=== PATIENT | female | born 1945 | race Caucasian/White ===

== ENCOUNTER → 2016-08-07 | Outpatient (CLI) | payer MEDICARE ==
[~2016-08-07] MED LIST: ATEN100T PO; CARD60TA3 PO; FURO40TA2 PO; K-TA10TA2 PO; LEVO175T2 PO; LEVO750T13 PO; LISI25TA PO; LOSA25TA8 PO; SPIR25TA2 PO; VITA100067 PO; WARF-20 PO; WARF-58 PO
--- NOTE | 2016-08-07 12:34 | REP ---
Clinical: Bronchitis . Comparison: 06/27/2016. Technique: PA and lateral. Findings: The mediastinum and cardiac silhouette are normal. The lung bailey are clear and without acute consolidation, effusion, or pneumothorax. The skeletal structures are intact and normal. Impression: 1. No acute cardiopulmonary process. Signed by Mikey Ruffin MD 08/07/2016 12:25 P
== END ==
LOC: M LRY 11:47
PROVIDERS: ATTEND Physician Assistant
DX: J40 Bronchitis, not specified as acute or chronic (principal)
CPT/HCPCS: 71020; 87880; G0463

== ENCOUNTER → 2016-08-07 | Outpatient (REF) | payer MEDICARE | LOC: M SFHCLERA 11:34 | PROVIDERS: ATTEND Physician Assistant | DX: J02.9 Acute pharyngitis, unspecified (principal) ==

== ENCOUNTER 2016-10-27 20:51 | Emergency (ER) | payer MEDICARE ==
[~2016-10-27] VITALS: Ht 175.3 cm; Wt 109.1 kg
[~2016-10-27 20:51] MED LIST changes: -LOSA25TA8 PO
[2016-10-27] MEDS ORDERED: LOSA25TA8 PO (21:08)
[2016-10-27 22:43] VITALS: BP 137/69
--- NOTE | 2016-10-28 07:50 | REP ---
PA and lateral chest: Comparison is 2016. There are no focal infiltrates or effusions. No masses. Lung bailey are clear and unchanged. Cardiac size is mildly enlarged, unchanged. The sandra, mediastinum, bony thorax are. Impression: Mild cardiomegaly. Otherwise, negative PA and lateral chest. Surgical clips are incidentally noted in the abdominal right upper quadrant. Signed by Emory Justin MD 10/28/2016 07:41 A
== END 2016-10-27 22:44 | disposition home or self-care (01) ==
LOC: M ED 20:51
DX: T18.128A Food in esophagus causing other injury, initial encounter (principal); X58.XXXA Exposure to other specified factors, initial encounter; Y92.89 Other specified places as the place of occurrence of the external cause; I11.0 Hypertensive heart disease with heart failure; I50.9 Heart failure, unspecified; E03.9 Hypothyroidism, unspecified; I48.91 Unspecified atrial fibrillation; Z79.01 Long term (current) use of anticoagulants; Z79.899 Other long term (current) drug therapy; Z88.0 Allergy status to penicillin; Z91.013 Allergy to seafood

== ENCOUNTER → 2016-12-16 | Outpatient (CLI) | payer MEDICARE ==
[~2016-12-16] MED LIST changes: +LOSA25TA8 PO
--- NOTE | 2016-12-19 19:36 | SLEEPCENT ---
DATE OF PROCEDURE: 12/16/2016 ORDERED BY: Dr. Carranza Nocturnal polysomnography was performed to evaluate sleep physiology in this patient with complaints of excessive somnolence and nonrestorative sleep, who has comorbidities of atrial fibrillation, congestive heart failure and hypertension. 8 hours and 25 minutes of data were reviewed. There 324 minutes of sleep identified. Sleep latency was prolonged at 22 minutes. Rapid eye movement (REM) latency was prolonged at 140 minutes. Sleep architecture showed fragmentation. Sleep progression was fairly well maintained. There were three REM cycles. Overall sleep efficiency was 65.1%. Electrocardiogram showed atrial fibrillation with a controlled ventricular response rate of 64 beats per minute. Heart rate ranged 50-80 beats per minute. EEG showed mild coarsening of background, otherwise normal waveforms for awake and sleep. There were no focal events identified. There were 104 respiratory events identified of 10 seconds in duration or greater for an apnea-hypopnea index of 19.2. The events were primarily obstructive, not exclusive to sleep stage nor body posture. Arousals from respiratory events occurred 5.5 times per hour and oxygen desaturations were seen into the low 80s. Remaining measures of sleep physiology were normal. IMPRESSION: Obstructive sleep apnea syndrome (G47.33). Apnea-hypopnea index 19.2. RECOMMENDATION: The patient should be encouraged to return to the sleep disorder center for pressure therapy. In the interim, alcohol and sedative avoidance should be practiced and caution exercised during the operation of motor vehicles. Copy To: Tarun Chavis
== END ==
LOC: M SLEEP 19:23
PROVIDERS: ATTEND Internal Medicine Pulmonary Disease
DX: G47.33 Obstructive sleep apnea (adult) (pediatric) (principal)

== ENCOUNTER → 2017-02-03 | Outpatient (CLI) | payer MEDICARE | LOC: M SLEEP 19:34 | DX: G47.33 Obstructive sleep apnea (adult) (pediatric) (principal) | CPT/HCPCS: 95811 ==

== ENCOUNTER 2018-01-20 19:14 | Inpatient (IN) | payer OTHER, MEDICARE ==
[2018-01-20] MEDS: ONDANSETRON 4MG/2ML VIAL (J2405) IV (19:57)
[2018-01-20 19:58] LABS: BASO # 0.1 10^3/uL (0.0-0.2); BASO % 0.3 % (0.0-1.0); EOS # 0.1 10^3/uL (0.0-0.50); EOS % 0.6 % (0.0-3.0); HEMATOCRIT 40.5 % (36.0-47.0); HEMOGLOBIN 13.4 g/dl (12.0-15.5); IMMATURE GRANULOCYTE % 1.4 % (0-3.0); LYMPH % 21.7 % (24.0-44.0); MEAN CORPUSCULAR HEMOGLOBIN 30.1 pg (27.0-33.0); MEAN CORPUSCULAR HGB CONC 33.1 g/dl (32.0-36.5); MONO # 0.9 10^3/uL (0.0-0.8); MONO % 4.8 % (0.0-5.0); NEUTROPHILS # 13.2 10^3/uL (1.8-7.7); NEUTROPHILS % 71.2 % (36.0-66.0); PLATELET COUNT, AUTOMATED 253 10^3/uL (150-450); RED BLOOD COUNT 4.45 10^6/uL (4.00-5.40); RED CELL DISTRIBUTION WIDTH 14.1 % (11.5-14.5); WHITE BLOOD COUNT 18.5 10^3/uL (4.0-10.0)
[2018-01-20] MEDS: MORPHINE 4 MG/ML 1ML VIAL/SYRINGE (J2270) IV ×2 (19:58→21:00)
[2018-01-20 20:02] LABS: INR 2.21; PARTIAL THROMBOPLASTIN TIME 37.4 SECONDS (25.4-37.6)
[2018-01-20 20:02] LABS: BEDSIDE GLUCOSE 139 MG/DL (83-110)
[2018-01-20 20:18] LABS: ALBUMIN 4.1 GM/DL (3.2-5.2); ALBUMIN/GLOBULIN RATIO 1.08 (1.00-1.93); ALKALINE PHOSPHATASE 109 U/L (45-117); ALT/SGPT 25 U/L (12-78); AMYLASE 43 U/L (25-115); ANION GAP 9 MEQ/L (8-16); AST/SGOT 21 U/L (7-37); BILIRUBIN,DIRECT 0.2 MG/DL (0.0-0.2); BILIRUBIN,TOTAL 0.4 MG/DL (0.2-1.0); BLOOD UREA NITROGEN 17 MG/DL (7-18); CALCIUM LEVEL 9.3 MG/DL (8.8-10.2); CARBON DIOXIDE LEVEL 25 MEQ/L (21-32); CHLORIDE LEVEL 108 MEQ/L (98-107); CK-MB VALUE MASS < 1.0 NG/ML (<3.6); CPK CREATINE PHOSPHOKINASE 70 U/L (26-192); CREATININE FOR GFR 0.89 MG/DL (0.55-1.30); ETHYL ALCOHOL (ETHANOL) < 0.003 % (0.000-0.010); GLOMERULAR FILTRATION RATE > 60.0 (>39); GLUCOSE, FASTING 146 MG/DL (70-100); LIPASE 94 U/L (73-393); MB/CK RELATIVE INDEX 1.43 (< OR =4); POTASSIUM SERUM 3.9 MEQ/L (3.5-5.1); SODIUM LEVEL 142 MEQ/L (136-145); TOTAL PROTEIN 7.9 GM/DL (6.4-8.2); TROPONIN I < 0.02 NG/ML (< 0.10)
[2018-01-20] MEDS ORDERED: ISOVUE-370 76% 100ML VIAL (Q9967) As Ordered (20:19)
[2018-01-20 20:26] LABS: LACTIC ACID SEPSIS PROTOCOL 1.4 MMOL/L (0.4-2.0)
[2018-01-20 21:40] LABS: KETONE, URINE AUTO RFX NEGATIVE (NEGATIVE); MUCUS, URINE RFX SMALL (NEGATIVE); NITRITE, URINE AUTO RFX NEGATIVE (NEGATIVE); RBC, URINE AUTO RFX 4 /HPF (0-3); SPECIFIC GRAVITY UR AUTO RFX 1.027 (1.002-1.035); SQUAM EPITHELIAL CELL UR AURFX 3 /HPF (0-6); WBC, URINE AUTO RFX 2 /HPF (0-3)
[2018-01-20 21:45] LABS: LEUKOCYTE ESTERASE UR AUTO RFX TRACE (NEGATIVE)
[2018-01-20 21:56] LABS: AMPHETAMINES LEVEL URINE NEGATIVE (NEGATIVE); BARBITURATES URINE NEGATIVE (NEGATIVE); BENZODIAZEPINES URINE NEGATIVE (NEGATIVE); CANNABINOIDS URINE NEGATIVE (NEGATIVE); COCAINE METABOLITE URINE NEGATIVE (NEGATIVE); METHADONE URINE NEGATIVE (NEGATIVE); OPIATES URINE POSITIVE (NEGATIVE); PHENCYCLIDINE URINE NEGATIVE (NEGATIVE)
[2018-01-20] MEDS: PHYTONADIONE INJection 10 MG in NS 50 ML IV (22:10)
[2018-01-20] MEDS ORDERED: LIDOCAINE 1% MDV 20ML VIAL As Ordered (22:59)
[2018-01-20] MEDS ORDERED: IPRATROPIUM 0.5MG/ALBUTEROL 2.5MG INH SOL UD 3ML (DUONEB)(J7620) NEB (23:00)
[2018-01-20] MEDS ORDERED: PROMETHAZINE INJ 25 MG/ML VIAL (J2550) IV (23:00)
[2018-01-20] MEDS ORDERED: ONDANSETRON 4MG/2ML VIAL (J2405) IV (23:00)
[2018-01-20] MEDS ORDERED: MORPHINE 4 MG/ML 1ML VIAL/SYRINGE (J2270) IV (23:00)
[2018-01-20] MEDS ORDERED: METOCLOPRAMIDE INJ 10MG/2ML VIAL (J2765) IV (23:00)
[2018-01-20] MEDS: D5W/LR 1,000 ML IV (23:38)
[2018-01-20] MEDS: LIDOCAINE 1% SDV INJ 30 ML VIAL SC (23:48)
[2018-01-21] MEDS: METOPROLOL TARTRATE 100 MG TAB PO ×3 (01:24→20:42)
[2018-01-21] MEDS: NORCO, ANEXSIA 5/325MG TABLET (HYDROcodone/ACETAMINOPHEN) PO ×3 (02:23→20:48)
[2018-01-21] MEDS: IPRATROPIUM 0.5MG/ALBUTEROL 2.5MG INH SOL UD 3ML (DUONEB)(J7620) NEB ×4 (03:51→20:23)
[2018-01-21 05:16] LABS: HEMATOCRIT 31.2 % (36.0-47.0); MEAN CORPUSCULAR HEMOGLOBIN 30.3 pg (27.0-33.0); MEAN CORPUSCULAR HGB CONC 32.4 g/dl (32.0-36.5); MEAN CORPUSCULAR VOLUME 93.7 fl (80.0-96.0); PLATELET COUNT, AUTOMATED 214 10^3/uL (150-450); RED BLOOD COUNT 3.33 10^6/uL (4.00-5.40); RED CELL DISTRIBUTION WIDTH 14.2 % (11.5-14.5); WHITE BLOOD COUNT 13.9 10^3/uL (4.0-10.0)
[2018-01-21 05:25] LABS: HEMOGLOBIN 10.1 g/dl (12.0-15.5)
[2018-01-21 05:39] LABS: ANION GAP 8 MEQ/L (8-16); BLOOD UREA NITROGEN 16 MG/DL (7-18); CALCIUM LEVEL 8.2 MG/DL (8.8-10.2); CARBON DIOXIDE LEVEL 25 MEQ/L (21-32); CHLORIDE LEVEL 110 MEQ/L (98-107); CREATININE FOR GFR 0.82 MG/DL (0.55-1.30); GLOMERULAR FILTRATION RATE > 60.0 (>39); GLUCOSE, FASTING 179 MG/DL (70-100); POTASSIUM SERUM 4.2 MEQ/L (3.5-5.1); SODIUM LEVEL 143 MEQ/L (136-145)
[2018-01-21] MEDS: D5W/LR 1,000 ML IV (08:20)
[2018-01-21] MEDS: FUROSEMIDE 40 MG TAB PO (09:59)
[2018-01-21] MEDS: DOCUSATE SODIUM 100 MG CAP PO ×2 (09:59→20:41)
[2018-01-21] MEDS: SPIRONOLACTONE 25 MG TAB PO (09:59)
[2018-01-21] MEDS: PANTOPRAZOLE 40MG INJ (PROTONIX) (C9113) IV (10:00)
[2018-01-21] MEDS: LOSARTAN 25 MG TAB PO (10:00)
[2018-01-22] MEDS: IPRATROPIUM 0.5MG/ALBUTEROL 2.5MG INH SOL UD 3ML (DUONEB)(J7620) NEB ×4 (02:00→21:40)
[2018-01-22] MEDS: NORCO, ANEXSIA 5/325MG TABLET (HYDROcodone/ACETAMINOPHEN) PO ×3 (05:57→16:27)
[2018-01-22 06:35] LABS: HEMATOCRIT 31.6 % (36.0-47.0); HEMOGLOBIN 10.2 g/dl (12.0-15.5); MEAN CORPUSCULAR HEMOGLOBIN 30.4 pg (27.0-33.0); MEAN CORPUSCULAR HGB CONC 32.3 g/dl (32.0-36.5); MEAN CORPUSCULAR VOLUME 94.3 fl (80.0-96.0); PLATELET COUNT, AUTOMATED 165 10^3/uL (150-450); RED BLOOD COUNT 3.35 10^6/uL (4.00-5.40); RED CELL DISTRIBUTION WIDTH 14.3 % (11.5-14.5); WHITE BLOOD COUNT 15.2 10^3/uL (4.0-10.0)
[2018-01-22 06:43] LABS: ANION GAP 9 MEQ/L (8-16); BLOOD UREA NITROGEN 14 MG/DL (7-18); CALCIUM LEVEL 8.4 MG/DL (8.8-10.2); CARBON DIOXIDE LEVEL 22 MEQ/L (21-32); CHLORIDE LEVEL 107 MEQ/L (98-107); CREATININE FOR GFR 0.71 MG/DL (0.55-1.30); GLOMERULAR FILTRATION RATE > 60.0 (>39); GLUCOSE, FASTING 136 MG/DL (70-100); POTASSIUM SERUM 4.2 MEQ/L (3.5-5.1); SODIUM LEVEL 138 MEQ/L (136-145)
[2018-01-22] MEDS: DOCUSATE SODIUM 100 MG CAP PO ×2 (09:36→22:05)
[2018-01-22] MEDS: LOSARTAN 25 MG TAB PO (09:36)
[2018-01-22] MEDS: SPIRONOLACTONE 25 MG TAB PO (09:36)
[2018-01-22] MEDS: METOPROLOL TARTRATE 100 MG TAB PO ×2 (09:36→22:06)
[2018-01-22] MEDS: FUROSEMIDE 40 MG TAB PO (09:37)
[2018-01-22] MEDS: PANTOPRAZOLE 40MG INJ (PROTONIX) (C9113) IV (09:37)
[2018-01-22 21:44] LABS: BEDSIDE GLUCOSE 125 MG/DL (83-110)
[2018-01-23] MEDS: IPRATROPIUM 0.5MG/ALBUTEROL 2.5MG INH SOL UD 3ML (DUONEB)(J7620) NEB ×4 (02:00→21:36)
[2018-01-23] MEDS: NORCO, ANEXSIA 5/325MG TABLET (HYDROcodone/ACETAMINOPHEN) PO ×2 (02:05→20:43)
[2018-01-23 06:00] LABS: HEMATOCRIT 27.4 % (36.0-47.0); HEMOGLOBIN 8.9 g/dl (12.0-15.5); MEAN CORPUSCULAR HEMOGLOBIN 30.2 pg (27.0-33.0); MEAN CORPUSCULAR HGB CONC 32.5 g/dl (32.0-36.5); MEAN CORPUSCULAR VOLUME 92.9 fl (80.0-96.0); PLATELET COUNT, AUTOMATED 157 10^3/uL (150-450); RED BLOOD COUNT 2.95 10^6/uL (4.00-5.40); RED CELL DISTRIBUTION WIDTH 13.8 % (11.5-14.5); WHITE BLOOD COUNT 11.1 10^3/uL (4.0-10.0)
[2018-01-23 06:22] LABS: ANION GAP 4 MEQ/L (8-16); BLOOD UREA NITROGEN 14 MG/DL (7-18); CALCIUM LEVEL 8.5 MG/DL (8.8-10.2); CARBON DIOXIDE LEVEL 30 MEQ/L (21-32); CHLORIDE LEVEL 104 MEQ/L (98-107); CREATININE FOR GFR 0.74 MG/DL (0.55-1.30); GLOMERULAR FILTRATION RATE > 60.0 (>39); GLUCOSE, FASTING 152 MG/DL (70-100); POTASSIUM SERUM 3.9 MEQ/L (3.5-5.1); SODIUM LEVEL 138 MEQ/L (136-145)
[2018-01-23] MEDS: DOCUSATE SODIUM 100 MG CAP PO ×2 (08:44→20:41)
[2018-01-23] MEDS: PANTOPRAZOLE 40MG INJ (PROTONIX) (C9113) IV (08:44)
[2018-01-23] MEDS: SPIRONOLACTONE 25 MG TAB PO (08:44)
[2018-01-23] MEDS: FUROSEMIDE 40 MG TAB PO (08:45)
[2018-01-23] MEDS: LOSARTAN 25 MG TAB PO (08:45)
[2018-01-23] MEDS: METOPROLOL TARTRATE 100 MG TAB PO ×2 (08:45→20:41)
[2018-01-23] MEDS: BISACODYL 5 MG TAB PO (09:39)
[2018-01-23] MEDS: SENNA 8.6 MG TAB (SENOKOT) PO ×2 (09:39→20:41)
[2018-01-24] MEDS: IPRATROPIUM 0.5MG/ALBUTEROL 2.5MG INH SOL UD 3ML (DUONEB)(J7620) NEB ×3 (02:00→13:22)
[2018-01-24] MEDS: NORCO, ANEXSIA 5/325MG TABLET (HYDROcodone/ACETAMINOPHEN) PO (03:56)
[2018-01-24 06:23] LABS: HEMATOCRIT 27.7 % (36.0-47.0); HEMOGLOBIN 9.2 g/dl (12.0-15.5); MEAN CORPUSCULAR HEMOGLOBIN 30.3 pg (27.0-33.0); MEAN CORPUSCULAR HGB CONC 33.2 g/dl (32.0-36.5); MEAN CORPUSCULAR VOLUME 91.1 fl (80.0-96.0); PLATELET COUNT, AUTOMATED 192 10^3/uL (150-450); RED BLOOD COUNT 3.04 10^6/uL (4.00-5.40); RED CELL DISTRIBUTION WIDTH 13.7 % (11.5-14.5); WHITE BLOOD COUNT 10.8 10^3/uL (4.0-10.0)
[2018-01-24 06:52] LABS: ANION GAP 8 MEQ/L (8-16); BLOOD UREA NITROGEN 12 MG/DL (7-18); CALCIUM LEVEL 8.4 MG/DL (8.8-10.2); CARBON DIOXIDE LEVEL 29 MEQ/L (21-32); CHLORIDE LEVEL 102 MEQ/L (98-107); CREATININE FOR GFR 0.63 MG/DL (0.55-1.30); GLOMERULAR FILTRATION RATE > 60.0 (>39); GLUCOSE, FASTING 142 MG/DL (70-100); POTASSIUM SERUM 3.5 MEQ/L (3.5-5.1); SODIUM LEVEL 139 MEQ/L (136-145)
[2018-01-24] MEDS: SENNA 8.6 MG TAB (SENOKOT) PO (08:16)
[2018-01-24] MEDS: LOSARTAN 25 MG TAB PO (08:16)
[2018-01-24] MEDS: PANTOPRAZOLE 40MG INJ (PROTONIX) (C9113) IV (08:17)
[2018-01-24] MEDS: METOPROLOL TARTRATE 100 MG TAB PO (08:17)
[2018-01-24] MEDS: DOCUSATE SODIUM 100 MG CAP PO (08:17)
[2018-01-24] MEDS: SPIRONOLACTONE 25 MG TAB PO (08:17)
[2018-01-24] MEDS: FUROSEMIDE 40 MG TAB PO (08:17)
== END 2018-01-24 16:05 | disposition home or self-care (01) | DRG 135 ==
LOC: M PCU 01-21 01:51 → M MSPAV 01-21 16:36 → M ED 19:14 → M MSPAV 01-22 19:58 → M ED INP 22:51
DX: S22.21XA Fracture of manubrium, initial encounter for closed fracture (principal); I10 Essential (primary) hypertension; E03.9 Hypothyroidism, unspecified; G47.33 Obstructive sleep apnea (adult) (pediatric); M25.461 Effusion, right knee; M17.0 Bilateral primary osteoarthritis of knee; S20.212A Contusion of left front wall of thorax, initial encounter; Z90.49 Acquired absence of other specified parts of digestive tract; S61.412A Laceration without foreign body of left hand, initial encounter; Z79.01 Long term (current) use of anticoagulants; Z79.899 Other long term (current) drug therapy; S80.01XA Contusion of right knee, initial encounter; V43.62XA Car passenger injured in collision with other type car in traffic accident, initial encounter; Y92.413 State road as the place of occurrence of the external cause; Z88.0 Allergy status to penicillin; Z91.013 Allergy to seafood

== ENCOUNTER 2018-05-25 12:26 | Emergency (ER) | payer OTHER, MEDICARE ==
[~2018-05-25] VITALS: Ht 175.3 cm; Wt 105.9 kg
[~2018-05-25 12:26] MED LIST changes: +HYDR-3715 PO; +LISI2.5T49 PO; -LISI25TA PO; +LOSA25TA14 PO; -LOSA25TA8 PO; +METO100T5 PO; +SPIR-10 PO; -SPIR25TA2 PO
[2018-05-25 13:47] VITALS: BP 128/73
== END 2018-05-25 13:54 | disposition home or self-care (01) ==
LOC: M ED 12:26
DX: S81.001A Unspecified open wound, right knee, initial encounter (principal); X58.XXXA Exposure to other specified factors, initial encounter; Y92.89 Other specified places as the place of occurrence of the external cause; E11.9 Type 2 diabetes mellitus without complications; E07.9 Disorder of thyroid, unspecified; Z88.0 Allergy status to penicillin; Z91.013 Allergy to seafood; Z79.899 Other long term (current) drug therapy; Z79.890 Hormone replacement therapy; Z79.01 Long term (current) use of anticoagulants

== ENCOUNTER 2018-08-19 21:53 | Inpatient (IN) | payer MEDICARE, OTHER ==
[~2018-08-19] VITALS: Ht 175.3 cm; Wt 115.1 kg
[2018-08-19 22:42] LABS: BASO % 0.2 % (0.0-1.0); EOS # 0.1 10^3/uL (0.0-0.50); EOS % 0.3 % (0.0-3.0); HEMATOCRIT 39.2 % (36.0-47.0); HEMOGLOBIN 12.9 g/dl (12.0-15.5); LYMPH # 1.5 10^3/uL (1.5-4.5); LYMPH % 8.4 % (24.0-44.0); MEAN CORPUSCULAR HEMOGLOBIN 30.1 pg (27.0-33.0); MEAN CORPUSCULAR HGB CONC 32.9 g/dl (32.0-36.5); MEAN CORPUSCULAR VOLUME 91.4 fl (80.0-96.0); MONO # 0.8 10^3/uL (0.0-0.8); MONO % 4.5 % (0.0-5.0); NEUTROPHILS # 14.8 10^3/uL (1.8-7.7); NEUTROPHILS % 85.9 % (36.0-66.0); PLATELET COUNT, AUTOMATED 226 10^3/uL (150-450); RED BLOOD COUNT 4.29 10^6/uL (4.00-5.40); WHITE BLOOD COUNT 17.3 10^3/uL (4.0-10.0)
[2018-08-19 23:13] LABS: BLOOD UREA NITROGEN 12 MG/DL (7-18); CALCIUM LEVEL 8.9 MG/DL (8.8-10.2); CARBON DIOXIDE LEVEL 25 MEQ/L (21-32); CHLORIDE LEVEL 111 MEQ/L (98-107); CK-MB VALUE MASS < 1.0 NG/ML (<3.6); CPK CREATINE PHOSPHOKINASE 43 U/L (26-192); CREATININE FOR GFR 0.86 MG/DL (0.55-1.30); FREE T4 1.58 NG/DL (0.76-1.46); GLOMERULAR FILTRATION RATE > 60.0 (>39); GLUCOSE, FASTING 198 MG/DL (70-100); MB/CK RELATIVE INDEX 2.33 (< OR =4); POTASSIUM SERUM 4.2 MEQ/L (3.5-5.1); SODIUM LEVEL 142 MEQ/L (136-145); TROPONIN I < 0.02 NG/ML (< 0.10)
[2018-08-19] MEDS ORDERED: IPRATROPIUM 0.5MG/ALBUTEROL 2.5MG INH SOL UD 3ML (DUONEB)(J7620) NEB ONE (23:15)
[2018-08-19] MEDS ORDERED: ISOVUE-370 76% 100ML VIAL (Q9967) As Ordered ONE (23:46)
[2018-08-19 23:59] LABS: INR 2.86; PARTIAL THROMBOPLASTIN TIME 44.3 SECONDS (25.0-38.4); PROTHROMBIN TIME 29.9 SECONDS (11.8-14.0)
--- NOTE | 2018-08-20 00:43 | REPVR ---
EXAM: CT Angiography Chest With Contrast EXAM DATE/TIME: 08/20/2018 12:12 AM CLINICAL HISTORY: 73 years old, female; Shortness of breath; Additional info: SOB, cough, infiltrates on xray, abd pain TECHNIQUE: Imaging protocol: Axial computed tomographic angiography images of the chest with intravenous contrast using CT angiography protocol. Coronal and sagittal reformatted images were created and reviewed. 3D rendering: MIP reconstructed images were created and reviewed. Radiation optimization: All CT scans at this facility use at least one of these dose optimization techniques: automated exposure control; mA and/or kV adjustment per patient size (includes targeted exams where dose is matched to clinical indication); or iterative reconstruction. Contrast material: ISOVUE 370; Contrast volume: 100 ml; Contrast route: IV; COMPARISON: CT ANGIO CHEST 12/22/2015 11:40 AM FINDINGS: Pulmonary arteries: On series 4 and one image 126 there is a possible small filling defect in a pulmonary vessel at the right lung base. However this cannot be tracked to the pulmonary artery. On corresponding coronal reconstructions there is transverse artifact in this area the likely cause of this appearance. This area is also included on the abdominal CT and there is no intravascular filling defect. This appears to be artifact. No pulmonary embolus is identified. Aorta: There is no thoracic aortic aneurysm or dissection. Lungs: There is bilateral diffuse groundglass opacity particularly perihilar. There is an area of focal atelectasis or small infiltrate in the right middle lobe. There is central pulmonary vascular congestion. Pleural space: There are small bilateral pleural effusions. Heart: There is cardiomegaly. Lymph nodes: Unremarkable. No enlarged lymph nodes. Bones/joints: There are degenerative changes of the thoracic spine with posterior osteophytes at T6-T7 and T8-T9 resulting in mild to moderate central spinal stenosis. There is an old fracture of the midsternum. No acute fracture. Soft tissues: Unremarkable. IMPRESSION: 1. Cardiomegaly, pulmonary vascular congestion and groundglass opacity, probably pulmonary edema. There are small bilateral pleural effusions. 2. There is a small area of focal atelectasis or infiltrate in the right middle lobe. 3. No pulmonary emboli. Electronically signed by: Zac Watson On 08/20/2018 00:42:33 AM
--- NOTE | 2018-08-20 00:49 | REPVR ---
EXAM: CT Abdomen and Pelvis With Contrast EXAM DATE/TIME: 08/20/2018 12:12 AM CLINICAL HISTORY: 73 years old, female; Abdominal pain; Generalized; Additional info: SOB, cough, infiltrates on xray, abd pain TECHNIQUE: Imaging protocol: Axial computed tomography images of the abdomen and pelvis with intravenous contrast. Coronal and sagittal reformatted images were created and reviewed. Radiation optimization: All CT scans at this facility use at least one of these dose optimization techniques: automated exposure control; mA and/or kV adjustment per patient size (includes targeted exams where dose is matched to clinical indication); or iterative reconstruction. Contrast material: ISOVUE 370; Contrast volume: 100 ml; Contrast route: IV; COMPARISON: No relevant prior studies available. FINDINGS: Liver: The liver has a slightly irregular contour. It has heterogeneous density. No focal hepatic lesion. Gallbladder and bile ducts: Status post cholecystectomy. Bilateral ducts are not dilated. Pancreas: There is atrophy of the pancreas. No focal lesion. Spleen: The spleen is normal. Adrenals: The adrenal glands are normal. Kidneys and ureters: There is a 7 mm right renal cyst. The kidneys are otherwise normal. There is moderate left hydroureter. No obstructive calculus or lesion is identified. Stomach and bowel: No evidence of bowel distention. No wall thickening.. Appendix: No evidence of appendicitis. Intraperitoneal space: There is no free fluid or fluid collection. There is no free air. Vasculature: Normal. No abdominal aortic aneurysm. Lymph nodes: Normal. No enlarged lymph nodes. Bladder: The bladder is normal with no evidence of calculi. Reproductive: Unremarkable as visualized. Bones/joints: No acute fracture. No dislocation. Soft tissues: Unremarkable. IMPRESSION: 1. Liver appears heterogeneous and irregular suspicious for cirrhosis. No focal lesion. 2. The left ureter is moderately dilated with no evidence of obstructive calculus or lesion. This appearance was described on report dated 01/20/2018. No images for direct comparison. 3. No acute findings. COMMENT: Consistent with the [employer]'s Incidental Findings Committee Report (J Am Pramod Radiol 2010): Unless the patient's specific circumstances suggest otherwise, any liver lesion 0.5 cm or less, any cystic kidney lesion less than 1.0 cm, and/or any adrenal lesion 1.0 cm or less not otherwise characterized in this report as possessing suspicious or indeterminate imaging features is/are highly likely to be benign and do not require follow-up imaging or biopsy. Electronically signed by: Zac Watson On 08/20/2018 00:48:55 AM
[2018-08-20] MEDS ORDERED: cefTRIAXone SOD 2 GM in D5W MINI-BAG PLUS 50 ML IV ONE (01:15)
[2018-08-20] MEDS ORDERED: VITAD1000T PO (01:39)
[2018-08-20] MEDS: AZITHROMYCIN INJ 500 MG, VIAL MATE ADAPTER 1 EACH in D5W 250 ML IV SCH (02:00)
[2018-08-20] MEDS ORDERED: FUROSEMIDE 40 MG/4 ML VIAL (J1940) IV ONE (02:45)
[2018-08-20] MEDS ORDERED: ACETAMINOPHEN TAB 650MG DOSE (2X325MG) PO PRN (02:45)
--- NOTE | 2018-08-20 05:10 | HPEPDOC ---
General Date of Admission Aug 20, 2018 at 02:36 Date of Service: Aug 20, 2018 Chief Complaint The patient is a 73-year-old female admitted with a reason for visit of Cap (Community Acquired Pneumonia). History of Present Illness 73-year-old female with past medical history of hypertension, hypothyroidism, atrial fibrillation on Coumadin, and diastolic congestive heart failure presents to the ER with a chief complaint of increased shortness of breath. The patient states that her symptoms started 4 days ago and have been accompanied by a dry cough, lethargy, and malaise. She denies noting any fevers, but does endorse chills/rigors. She denies any sick contacts. She denies any complaints of chest pain, palpitations, abdominal pain, or any nausea/vomiting/diarrhea. She also denies any PND, or orthopnea, or increase in weight. In the ER, a CTA chest was notable for possible CAP, and component of decompensated congestive heart failure. The patient will be admitted to the hospital service for further evaluation and management of the same. Home Medications Scheduled Diltiazem Hcl (Cardizem) 60 Mg Tab, 60 MG PO TID, (Reported) Furosemide (Furosemide) 40 Mg Tab, 40 MG PO DAILY, (Reported) Levothyroxine Sodium (Levothyroxine Sodium) 175 Mcg Tab, 175 MCG PO DAILY, (Reported) Losartan Potassium (Losartan Potassium) 25 Mg Tab, 25 MG PO QHS, (Reported) Metoprolol Tartrate (Metoprolol Tartrate) 100 Mg Tab, 200 MG PO QAM, (Reported) Metoprolol Tartrate (Metoprolol Tartrate) 100 Mg Tab, 100 MG PO QHS, (Reported) Potassium Chloride (K-Tab ER) 10 Meq Tab, 10 MEQ PO DAILY, (Reported) Spironolactone (Spironolactone) 25 Mg Tab, 12.5 MG PO DAILY, (Reported) Vitamin D (Vitamin D3) 1,000 Unit Tablet, 1,000 UNITS PO DAILY, (Reported) Warfarin Sodium (Warfarin Sodium) 3 Mg Tab, 3 MG PO DAILY, (Reported) 3MG DAILY, ADDITIONAL 1MG EVERY THIRD DAY (08/19/2018 WOULD HAVE BEEN THE 4MG DAY.) PATIENT TAKES QHS Allergies Coded Allergies: SEAFOOD (Verified Allergy, Severe, 05/25/18) Throat swelling Penicillins (Verified Allergy, Unknown, 05/25/18) Past Medical History Surgical History Cholecystectomy. Tubal ligation. section. Social History * Smoker: Denies Alcohol: Denies Drugs: denies Review of Systems Other systems 10 point review of systems negative unless otherwise specified in HPI. Physical Examination General Exam: Positive: Alert, Cooperative, No Acute Distress ENT Exam: Positive: Atraumatic, Mucous membr. moist/pink Chest Exam: Positive: Rales (faint bibasilar crackles noted on auscultation), Diminished Heart Exam: Positive: Tachycardic, Normal S1, Normal S2 Telemetry: Positive: Atrial fibrillation Abdomen Exam: Positive: Soft; Negative: Tenderness Extremity Exam: Negative: Tenderness, Swelling Psych Exam: Positive: Oriented x 3 Vital Signs Vital Signs Date Time Temp Pulse Resp B/P (MAP) Pulse Ox O2 Delivery O2 Flow Rate FiO2 08/20/18 04:39 99.5 08/20/18 04:38 121 22 146/67 (93) 91 Nasal Cannula 2.0 Laboratory Data Labs 24H Laboratory Tests 2 08/19/18 22:25: Prothrombin Time 29.9H, Prothromb Time International Ratio 2.86, Activated Partial Thromboplast Time 44.3H 08/19/18 22:26: Immature Granulocyte % (Auto) 0.7, White Blood Count 17.3H, Red Blood Count 4.29, Hemoglobin 12.9, Hematocrit 39.2, Mean Corpuscular Volume 91.4, Mean Corpuscular Hemoglobin 30.1, Mean Corpuscular Hemoglobin Concent 32.9, Red Cell Distribution Width 15.2H, Platelet Count 226, Neutrophils (%) (Auto) 85.9H, Lymphocytes (%) (Auto) 8.4L, Monocytes (%) (Auto) 4.5, Eosinophils (%) (Auto) 0.3, Basophils (%) (Auto) 0.2, Neutrophils # (Auto) 14.8H, Lymphocytes # (Auto) 1.5, Monocytes # (Auto) 0.8, Eosinophils # (Auto) 0.1, Basophils # (Auto) 0.0, Nucleated Red Blood Cells % (auto) 0.0, Anion Gap 6L, Glomerular Filtration Rate > 60.0, Blood Urea Nitrogen 12, Creatinine 0.86, Sodium Level 142, Potassium Level 4.2, Chloride Level 111H, Carbon Dioxide Level 25, Calcium Level 8.9, Total Creatine Kinase 43, Creatine Kinase MB < 1.0, Creatine Kinase MB Relative Index 2.33, Troponin I < 0.02, Thyroid Stimulating Hormone (TSH) 2.300, Free Thyroxine 1.58H 08/19/18 23:47: POC pH (Misc Panel) 7.413, POC Base Excess (Misc Panel) -2.0, POC Saturated Percent O2 (Misc) 95, POC pO2 (Misc Panel) 73.0L, POC pCO2 (Misc Panel) 34.8L, POC HCO3 (Misc Panel) 22.2, POC Total CO2 (Misc Panel) 23.0 CBC/BMP Laboratory Tests 08/19/18 22:26 Red Blood Count 4.29, Mean Corpuscular Volume 91.4, Mean Corpuscular Hemoglobin 30.1, Mean Corpuscular Hemoglobin Concent 32.9, Red Cell Distribution Width 15.2 H, Neutrophils (%) (Auto) 85.9 H, Lymphocytes (%) (Auto) 8.4 L, Monocytes (%) (Auto) 4.5, Eosinophils (%) (Auto) 0.3, Basophils (%) (Auto) 0.2, Neutrophils # (Auto) 14.8 H, Lymphocytes # (Auto) 1.5, Monocytes # (Auto) 0.8, Eosinophils # (Auto) 0.1, Basophils # (Auto) 0.0, Calcium Level 8.9, Total Creatine Kinase 43 Plan / VTE VTE Prophylaxis Ordered?: Yes Plan Plan SOB 2/2 CAP, Decompensated CHF CT angiogram of the chest notable for pulmonary edema, with subtle infiltrate. Patient was noted to be febrile with a MAXIMUM TEMPERATURE of 100.4 in the ER, and laboratory results are notable for a white blood cell count of 17,000. Cultures, and a procalcitonin level ordered. We will start the patient on Rocephin and azithromycin As for the patient's decompensated congestive heart failure, it does appear to be mild and possibly contributory to her shortness of breath. We will give her 1 dose of IV Lasix to assess response, and continue her home by mouth regimen. Continue spironolactone Fluid restriction, daily weights, and strict input/output ordered Previous 2-D echocardiogram from November 2013 notable for preserved EF, diastolic dysfunction--the patient states that she follows with Dr. Nguyen of cardiology and had an echocardiogram done last year, an order has been placed obtain these records. We will continue to monitor the patient's respiratory status. Atrial fibrillation with RVR 2/2 Above Continue Metoprolol, Cardizem as ordered INR therapeutic, continue Coumadin as ordered Hypertension Continue losartan Hypothyroidism Continue levothyroxine DVT prophylaxis On Coumadin JENIFFER VELIZ MD Aug 20, 2018 05:10
[2018-08-20] MEDS: LEVOTHYROXINE 100MCG TABLET (0.1MG) PO SCH (05:48)
[2018-08-20] MEDS: LEVOTHYROXINE 75MCG TABLET (0.075MG) PO SCH (05:48)
[2018-08-20 06:10] LABS: HEMATOCRIT 36.8 % (36.0-47.0); HEMOGLOBIN 11.9 g/dl (12.0-15.5); MEAN CORPUSCULAR HGB CONC 32.3 g/dl (32.0-36.5); MEAN CORPUSCULAR VOLUME 89.5 fl (80.0-96.0); PLATELET COUNT, AUTOMATED 175 10^3/uL (150-450); RED BLOOD COUNT 4.11 10^6/uL (4.00-5.40); WHITE BLOOD COUNT 15.2 10^3/uL (4.0-10.0)
[2018-08-20 06:16] LABS: INR 2.85; PROTHROMBIN TIME 29.8 SECONDS (11.8-14.0)
[2018-08-20 06:33] LABS: BLOOD UREA NITROGEN 13 MG/DL (7-18); CALCIUM LEVEL 9.1 MG/DL (8.8-10.2); CARBON DIOXIDE LEVEL 28 MEQ/L (21-32); CHLORIDE LEVEL 107 MEQ/L (98-107); CREATININE FOR GFR 0.88 MG/DL (0.55-1.30); GLOMERULAR FILTRATION RATE > 60.0 (>39); GLUCOSE, FASTING 186 MG/DL (70-100); POTASSIUM SERUM 3.7 MEQ/L (3.5-5.1); SODIUM LEVEL 140 MEQ/L (136-145)
--- NOTE | 2018-08-20 07:43 | REP ---
Portable chest, 10:32 p.m., single AP view with the patient upright: Comparison is 01/20/2018. There is focal increased density inferiorly in the left lung compatible with an acute infiltrate, as an interval change. The costophrenic angles are mildly effaced suggestive of small bilateral pleural effusions, not present previously. There is marked cardiomegaly, unchanged. The sandra, mediastinum, skeletal structures. Impression: Infiltrate inferiorly in the right lung. Small bilateral pleural effusions. Chronic cardiomegaly. Electronically Signed by Emory Justin MD 08/20/2018 07:35 A
[2018-08-20] MEDS ORDERED: FUROSEMIDE 40 MG TAB PO SCH (09:00)
[2018-08-20] MEDS: METOPROLOL TARTRATE 100 MG TAB PO SCH ×2 (09:32→20:47)
[2018-08-20] MEDS: VITAMIN D 1,000 INTERNATIONAL UNITS TABLET PO SCH (09:32)
[2018-08-20] MEDS: POTASSIUM CHLORIDE 10 MEQ SR TABLET PO SCH (09:32)
[2018-08-20] MEDS: SPIRONOLACTONE 12.5MG PER 1/2 TABLET PO SCH (09:33)
[2018-08-20] MEDS: FUROSEMIDE 20 MG/2 ML VIAL (J1940) IV SCH ×2 (13:24→18:29)
[2018-08-20 17:45] VITALS: BP 165/88
[2018-08-20] MEDS ORDERED: SLF 3 ML SYR IV PRN (18:00)
[2018-08-20] MEDS: WARFARIN SOD 3 MG TAB PO SCH (18:28)
--- NOTE | 2018-08-20 18:37 | IPNPDOC ---
Date Seen The patient was seen on 08/20/18. Progress Note Subjective: pt still c/o sob, cough and PND. diuresed well with lasix. no chest pain,pressure,tightness, palpitations, dizziness, or lightheadedness Physical Examination VITALS: PLS SEE BELOW General Exam: Positive: Alert, Cooperative, No Acute Distress ENT Exam: Positive: Atraumatic, Mucous membr. moist/pink Chest Exam: Positive: Rales (faint bibasilar crackles noted on auscultation), Diminished Heart Exam: Positive: Tachycardic, Normal S1, Normal S2 Telemetry: Positive: Atrial fibrillation Abdomen Exam: Positive: Soft; Negative: Tenderness Extremity Exam: Negative: Tenderness, Swelling Psych Exam: Positive: Oriented x 3 LABORATORY DATA, IMAGING STUDIES,MICROBIOLOGY: PLS SEE BELOW ASSESSMENT AND PLAN: 73-year-old female with past medical history of hypertension, hypothyroidism, atrial fibrillation on Coumadin, and diastolic congestive heart failure presents to the ER with a chief complaint of increased shortness of breath. The patient states that her symptoms started 4 days ago and have been accompanied by a dry cough, lethargy, and malaise. She denies noting any fevers, but does endorse chills/rigors. She denies any sick contacts. She denies any complaints of chest pain, palpitations, abdominal pain, or any nausea/vomiting/diarrhea. She also denies any PND, or orthopnea, or increase in weight. In the ER, a CTA chest was notable for possible CAP, and component of decompensated congestive heart failure. The patient will be admitted to the hospital service for further evaluation and management of the same Acute Hypoxic Respiratory failure keep otsat>90% due to community acquired pneumonia and CHF exacerbation CT angiogram of the chest notable for pulmonary edema, with subtle infiltrate. Patient was noted to be febrile with a MAXIMUM TEMPERATURE of 100.4 in the ER, and laboratory results are notable for a white blood cell count of 17,000. Cultures, and a procalcitonin level ordered. on Rocephin and azithromycin on iv lasix with holding paraemters. Continue spironolactone strict i/o . Fluid restriction, daily weights, and strict input/output ordered Previous 2-D echocardiogram from November 2013 notable for preserved EF, diastol ic dysfunction--the patient states that she follows with Dr. Nguyen of cardiology and had an echocardiogram done last year, an order has been placed obtain these records. We will continue to monitor the patient's respiratory status. CAP CT angiogram of the chest notable for pulmonary edema, with subtle infiltrate. Patient was noted to be febrile with a MAXIMUM TEMPERATURE of 100.4 in the ER, and laboratory results are notable for a white blood cell count of 17,000. Cultures, and a procalcitonin level ordered. on Rocephin and azithromycin CHF acute exacerbation on iv lasix with holding paraemters. Continue spironolactone strict i/o . Fluid restriction, daily weights, and strict input/output ordered Previous 2-D echocardiogram from November 2013 notable for preserved EF, diastolic dysfunction--the patient states that she follows with Dr. Nguyen of cardiology and had an echocardiogram done last year, an order has been placed obtain these records. We will continue to monitor the patient's respiratory status. Atrial fibrillation with RVR 2/2 Above Continue Metoprolol, Cardizem as ordered INR therapeutic, continue Coumadin as ordered Hypertension Continue losartan Hypothyroidism Continue levothyroxine DVT prophylaxis On Coumadin VS, I&O, 24H, [facility] Vital Signs/I&O Vital Signs Date Time Temp Pulse Resp B/P (MAP) Pulse Ox O2 Delivery O2 Flow Rate FiO2 08/20/18 16:46 99.2 91 33 152/70 (97) 92 Nasal Cannula 4.0 I&O- Last 24 Hours up to 6 AM 08/20/18 05:59 Intake Total 255 ml Output Total 1300 ml Balance -1045 ml Laboratory Data 24H LABS Laboratory Tests 2 08/19/18 22:25: Prothrombin Time 29.9H, Prothromb Time International Ratio 2.86, Activated Partial Thromboplast Time 44.3H 08/19/18 22:26: Immature Granulocyte % (Auto) 0.7, White Blood Count 17.3H, Red Blood Count 4.29, Hemoglobin 12.9, Hematocrit 39.2, Mean Corpuscular Volume 91.4, Mean Corpuscular Hemoglobin 30.1, Mean Corpuscular Hemoglobin Concent 32.9, Red Cell Distribution Width 15.2H, Platelet Count 226, Neutrophils (%) (Auto) 85.9H, Lymphocytes (%) (Auto) 8.4L, Monocytes (%) (Auto) 4.5, Eosinophils (%) (Auto) 0.3, Basophils (%) (Auto) 0.2, Neutrophils # (Auto) 14.8H, Lymphocytes # (Auto) 1.5, Monocytes # (Auto) 0.8, Eosinophils # (Auto) 0.1, Basophils # (Auto) 0.0, Nucleated Red Blood Cells % (auto) 0.0, Anion Gap 6L, Glomerular Filtration Rate > 60.0, Blood Urea Nitrogen 12, Creatinine 0.86, Sodium Level 142, Potassium Level 4.2, Chloride Level 111H, Carbon Dioxide Level 25, Calcium Level 8.9, Total Creatine Kinase 43, Creatine Kinase MB < 1.0, Creatine Kinase MB Relative Index 2.33, Troponin I < 0.02, Thyroid Stimulating Hormone (TSH) 2.300, Free Thyroxine 1.58H 08/19/18 23:47: POC pH (Misc Panel) 7.413, POC Base Excess (Misc Panel) -2.0, POC Saturated Percent O2 (Misc) 95, POC pO2 (Misc Panel) 73.0L, POC pCO2 (Misc Panel) 34.8L, POC HCO3 (Misc Panel) 22.2, POC Total CO2 (Misc Panel) 23.0 08/20/18 02:36: Lab Scanned Report LAB OTHER 08/20/18 05:33: Nucleated Red Blood Cells % (auto) 0.0, Prothrombin Time 29.8H, Prothromb Time International Ratio 2.85, Anion Gap 5L, Glomerular Filtration Rate > 60.0, Blood Urea Nitrogen 13, Creatinine 0.88, Sodium Level 140, Potassium Level 3.7, Chloride Level 107, Carbon Dioxide Level 28, Calcium Level 9.1, Magnesium Level 2.0, Procalcitonin 0.26 CBC/BMP Laboratory Tests 08/19/18 22:26 Red Blood Count 4.29, Mean Corpuscular Volume 91.4, Mean Corpuscular Hemoglobin 30.1, Mean Corpuscular Hemoglobin Concent 32.9, Red Cell Distribution Width 15.2 H, Neutrophils (%) (Auto) 85.9 H, Lymphocytes (%) (Auto) 8.4 L, Monocytes (%) (Auto) 4.5, Eosinophils (%) (Auto) 0.3, Basophils (%) (Auto) 0.2, Neutrophils # (Auto) 14.8 H, Lymphocytes # (Auto) 1.5, Monocytes # (Auto) 0.8, Eosinophils # (Auto) 0.1, Basophils # (Auto) 0.0, Calcium Level 8.9, Total Creatine Kinase 43 08/20/18 05:33 Red Blood Count 4.11, Mean Corpuscular Volume 89.5, Mean Corpuscular Hemoglobin 29.0, Mean Corpuscular Hemoglobin Concent 32.3, Red Cell Distribution Width 15.1 H, Calcium Level 9.1 ANJELICA DAY MD Aug 20, 2018 18:33
[2018-08-20 20:00] VITALS: BP 134/65
--- NOTE | 2018-08-20 20:41 | ECGEPIP ---
[facility] - ED Test Date: 2018-08-19 Pat Name: SHANE CARNEY Department: Room: [place] [address] Gender: Female [employer]: michi : 1945 Requested By: LEOLA Yeager Order Number: [id number] Reading MD: Alejandro Gill Measurements Intervals [place] Rate: 122 P: AK: -1 QRS: 54 QRSD: 101 T: 12 QT: 317 QTc: 453 Interpretive Statements ATRIAL FIBRILLATION WITH RAPID VENTRICULAR RESPONSE WITH ABERRANT CONDUCTION OR VENTRICULAR PREMATURE COMPLEXES Incomplete right bundle branch block Nonspecific ST-T wave abnormalities Previous tracing done 12-22-15 was atrial fib with controlled rate Electronically Signed on 08-20-2018 20:41:14 EDT by Alejandro Gill
[2018-08-20] MEDS: LOSARTAN 25 MG TAB PO SCH ×2 (20:45→20:46)
[2018-08-20] MEDS: SLF 3 ML SYR IV SCH (20:47)
[2018-08-20 22:00] LABS: BLOOD UREA NITROGEN 12 MG/DL (7-18); CALCIUM LEVEL 9.2 MG/DL (8.8-10.2); CARBON DIOXIDE LEVEL 30 MEQ/L (21-32); CHLORIDE LEVEL 106 MEQ/L (98-107); CREATININE FOR GFR 0.91 MG/DL (0.55-1.30); GLOMERULAR FILTRATION RATE > 60.0 (>39); GLUCOSE, FASTING 146 MG/DL (70-100); MAGNESIUM LEVEL 2.2 MG/DL (1.8-2.4); POTASSIUM SERUM 3.7 MEQ/L (3.5-5.1); SODIUM LEVEL 139 MEQ/L (136-145)
[2018-08-20] MEDS ORDERED: cefTRIAXone SOD 1 GM in D5W MINI-BAG PLUS 50 ML IV SCH (23:00)
[2018-08-20 23:59] VITALS: BP 135/77
[2018-08-21] MEDS: FUROSEMIDE 20 MG/2 ML VIAL (J1940) IV SCH ×2 (00:49→06:24)
[2018-08-21] MEDS: AZITHROMYCIN INJ 500 MG, VIAL MATE ADAPTER 1 EACH in D5W 250 ML IV SCH (01:53)
[2018-08-21 04:00] VITALS: BP 134/74
[2018-08-21] MEDS: LEVOTHYROXINE 100MCG TABLET (0.1MG) PO SCH (05:21)
[2018-08-21] MEDS: LEVOTHYROXINE 75MCG TABLET (0.075MG) PO SCH (05:21)
[2018-08-21 05:56] LABS: HEMATOCRIT 38.6 % (36.0-47.0); HEMOGLOBIN 12.7 g/dl (12.0-15.5); MEAN CORPUSCULAR HEMOGLOBIN 28.9 pg (27.0-33.0); MEAN CORPUSCULAR HGB CONC 32.9 g/dl (32.0-36.5); MEAN CORPUSCULAR VOLUME 87.7 fl (80.0-96.0); PLATELET COUNT, AUTOMATED 219 10^3/uL (150-450); WHITE BLOOD COUNT 12.4 10^3/uL (4.0-10.0)
[2018-08-21 06:14] LABS: BLOOD UREA NITROGEN 12 MG/DL (7-18); CALCIUM LEVEL 9.2 MG/DL (8.8-10.2); CARBON DIOXIDE LEVEL 30 MEQ/L (21-32); CHLORIDE LEVEL 105 MEQ/L (98-107); CREATININE FOR GFR 0.81 MG/DL (0.55-1.30); GLOMERULAR FILTRATION RATE > 60.0 (>39); GLUCOSE, FASTING 118 MG/DL (70-100); MAGNESIUM LEVEL 2.4 MG/DL (1.8-2.4); POTASSIUM SERUM 3.9 MEQ/L (3.5-5.1); SODIUM LEVEL 140 MEQ/L (136-145)
[2018-08-21 06:15] LABS: INR 2.74; PROTHROMBIN TIME 28.9 SECONDS (11.8-14.0)
[2018-08-21] MEDS: SLF 3 ML SYR IV SCH ×3 (06:24→20:47)
[2018-08-21 08:21] VITALS: BP 131/74
[2018-08-21 09:20] LABS: NT-PRO BNP 1458 PG/ML (<125)
[2018-08-21] MEDS: POTASSIUM CHLORIDE 10 MEQ SR TABLET PO SCH (10:18)
[2018-08-21] MEDS: SPIRONOLACTONE 12.5MG PER 1/2 TABLET PO SCH (10:18)
[2018-08-21] MEDS: CEFDINIR 300 MG CAP (OMNICEF) PO SCH ×2 (10:18→20:45)
[2018-08-21] MEDS: VITAMIN D 1,000 INTERNATIONAL UNITS TABLET PO SCH (10:19)
[2018-08-21] MEDS: METOPROLOL TARTRATE 100 MG TAB PO SCH ×2 (10:19→20:46)
--- NOTE | 2018-08-21 11:04 | IPNPDOC ---
Text Note Date of Service The patient was seen on 08/21/18. NOTE S: pateint being seen for CAP, CHF, hypoxic respiratory failure. States improved and breathing back to baseline. states minimal non productive cough, no fever. no N, no V. States leg cramping pain last night and this AM with IV diuresis. no CP O: Vitals as below General: pleasant, NAD AAOx3 Heart - irreg/irreg at 90 bpm, no murmur LCTA no W/R/R, no CVA tenderness Abdomen soft NT ND NABS Ext: no edema, no calf tenderness A/P: Acute Hypoxic Respiratory failure - IMPROVED -due to community acquired pneumonia and CHF exacerbation - titrate down/off oxygen CAP - presumed bacterial CT angiogram of the chest notable for pulmonary edema, with subtle infiltra te. continue rocephin/azith (day 2) Add PEP/IS and change to oral antibiotics in anticipation of d/c tomorrow. CHF acute diastolic exacerbation - fluid restrict, metoprolol, spironolactone, change IV to po lasix, continue ARB, echocardiogram done last year, an order has been placed obtain these records. Atrial fibrillation with RVR - resolved RVR; continue with metoprolol, cardizem, monitor warfarin (Therapeutic) levels Hypertension - Continue losartan, metoprolol and cardizem Hypothyroidism - Continue levothyroxine DVT prophylaxis : on warfarin (therapeutic) VS,Fishbone, I+O VS, Fishbone, I+O Laboratory Tests 08/20/18 21:17 Calcium Level 9.2 08/21/18 05:39 Calcium Level 9.2, Red Blood Count 4.40, Mean Corpuscular Volume 87.7, Mean Corpuscular Hemoglobin 28.9, Mean Corpuscular Hemoglobin Concent 32.9, Red Cell Distribution Width 14.9 H Vital Signs Date Time Temp Pulse Resp B/P (MAP) Pulse Ox O2 Delivery O2 Flow Rate FiO2 08/21/18 04:00 2.0 08/21/18 04:00 97.8 75 16 134/74 (94) 96 08/20/18 16:46 Nasal Cannula I&O- Last 24 Hours up to 6 AM 08/21/18 06:00 Intake Total 2163 ml Output Total 2825 ml Balance -662 ml JAXSON TRAN DO Aug 21, 2018 08:22
[2018-08-21 12:00] VITALS: BP 104/58
[2018-08-21 16:00] VITALS: BP 117/57
[2018-08-21] MEDS: WARFARIN SOD 3 MG TAB PO SCH (16:27)
[2018-08-21] MEDS: FUROSEMIDE 20 MG TAB PO SCH (16:28)
[2018-08-21 20:00] VITALS: BP 127/59
[2018-08-21] MEDS: LOSARTAN 25 MG TAB PO SCH (20:46)
[2018-08-22] VITALS: BP 137/68
[2018-08-22 04:00] VITALS: BP 129/60
[2018-08-22] MEDS: LEVOTHYROXINE 75MCG TABLET (0.075MG) PO SCH (05:48)
[2018-08-22] MEDS: LEVOTHYROXINE 100MCG TABLET (0.1MG) PO SCH (05:48)
[2018-08-22] MEDS: SLF 3 ML SYR IV SCH (05:49)
[2018-08-22 05:56] LABS: HEMATOCRIT 39.8 % (36.0-47.0); HEMOGLOBIN 12.9 g/dl (12.0-15.5); MEAN CORPUSCULAR HEMOGLOBIN 29.1 pg (27.0-33.0); MEAN CORPUSCULAR HGB CONC 32.4 g/dl (32.0-36.5); MEAN CORPUSCULAR VOLUME 89.6 fl (80.0-96.0); PLATELET COUNT, AUTOMATED 235 10^3/uL (150-450); RED BLOOD COUNT 4.44 10^6/uL (4.00-5.40); WHITE BLOOD COUNT 11.8 10^3/uL (4.0-10.0)
[2018-08-22 06:08] LABS: INR 2.66; PROTHROMBIN TIME 28.2 SECONDS (11.8-14.0)
[2018-08-22 06:14] LABS: BLOOD UREA NITROGEN 20 MG/DL (7-18); CARBON DIOXIDE LEVEL 28 MEQ/L (21-32); CHLORIDE LEVEL 106 MEQ/L (98-107); CREATININE FOR GFR 0.84 MG/DL (0.55-1.30); GLOMERULAR FILTRATION RATE > 60.0 (>39); GLUCOSE, FASTING 119 MG/DL (70-100); MAGNESIUM LEVEL 2.2 MG/DL (1.8-2.4); POTASSIUM SERUM 3.8 MEQ/L (3.5-5.1); SODIUM LEVEL 139 MEQ/L (136-145)
[2018-08-22 08:00] VITALS: BP 117/65
[2018-08-22] MEDS ORDERED: AZITHROMYCIN 250 MG TAB PO SCH (09:00)
[2018-08-22] MEDS: SPIRONOLACTONE 12.5MG PER 1/2 TABLET PO SCH (10:03)
[2018-08-22] MEDS: VITAMIN D 1,000 INTERNATIONAL UNITS TABLET PO SCH (10:03)
[2018-08-22] MEDS: POTASSIUM CHLORIDE 10 MEQ SR TABLET PO SCH (10:03)
[2018-08-22 10:05] VITALS: BP 129/60
[2018-08-22] MEDS: METOPROLOL TARTRATE 100 MG TAB PO SCH (10:05)
[2018-08-22] MEDS: FUROSEMIDE 20 MG TAB PO SCH (10:05)
[2018-08-22] MEDS: CEFDINIR 300 MG CAP (OMNICEF) PO SCH (10:15)
[2018-08-22] MEDS ORDERED: CEFD300CAP PO (11:33)
--- NOTE | 2018-08-22 20:11 | DS.PDOC ---
Discharge Summary General Date of Admission Aug 20, 2018 at 02:36 Date of Discharge 08/22/18 Discharge Summary PROCEDURES PERFORMED DURING STAY: none ADMITTING DIAGNOSES: SOB 2/2 CAP, Decompensated CHF Atrial fibrillation with RVR Hypertension Hypothyroidism DISCHARGE DIAGNOSES: Acute Hypoxic Respiratory failure - IMPROVED CAP - presumed bacterial CHF acute diastolic exacerbation Atrial fibrillation with RVR - Hypertension Hypothyroidism COMPLICATIONS/CHIEF COMPLAINT: Cap (Community Acquired Pneumonia). HISTORY OF PRESENT ILLNESS: 73-year-old female with past medical history of hypertension, hypothyroidism, atrial fibrillation on Coumadin, and diastolic congestive heart failure presents to the ER with a chief complaint of increased shortness of breath. The patient states that her symptoms started 4 days ago and have been accompanied by a dry cough, lethargy, and malaise. She denies noting any fevers, but does endorse chills/rigors. She denies any sick contacts. She denies any complaints of chest pain, palpitations, abdominal pain, or any nausea/vomiting/diarrhea. She also denies any PND, or orthopnea, or increase in weight. In the ER, a CTA chest was notable for possible CAP, and component of decompensated congestive heart failure. See H&P for further details HOSPITAL COURSE: Admitted, placed on IV antibiotics (rocephin/azithomycin) and diuresed 3+ liter. Her oxygenation improved and no longer needed supplemental oxygen at time of discharge. Her AFIB with RVR resolved and she was continued on metoprolol, cardizem; pateint INR was monitor and warfarin remained at therapeutic levels. Patient was discharged in stable and improved condition. DISCHARGE MEDICATIONS: Please see below. ALLERGIES: Please see below. PHYSICAL EXAMINATION ON DISCHARGE: VITAL SIGNS: Please see below. General: pleasant, NAD AAOx3 Heart - irreg/irreg no murmur LCTA no W/R/R, no CVA tenderness LABORATORY DATA: Please see below. IMAGING: CT angiogram of the chest notable for pulmonary edema, with subtle infiltrate PROGNOSIS: good ACTIVITY:as tolerated DIET: 2 gram low sodium as tolerated with fluid restriction 1500cc/24 hours DISCHARGE PLAN: discharge home DISCHARGE INSTRUCTIONS: 1. fluid restrict 1500cc/24 hour until seen by PCP 2. Completed 3 days course of azithromycin 3. omnicef for 7 more days (total 10 days for underlying pneumonia) 4. follow up with PCP in 5-7 days to recheck PNA and afib DISCHARGE CONDITION: stable TIME SPENT ON DISCHARGE: 30 minutes. Vital Signs/I&Os Vital Signs Date Time Temp Pulse Resp B/P (MAP) Pulse Ox O2 Delivery O2 Flow Rate FiO2 08/22/18 10:05 84 129/60 08/22/18 08:00 96.7 22 95 2.0 08/20/18 16:46 Nasal Cannula I&O- Last 24 Hours up to 6 AM 08/22/18 06:00 Intake Total 1260 ml Output Total 1475 ml Balance -215 ml Laboratory Data Labs 24H Laboratory Tests 2 08/22/18 05:38: Nucleated Red Blood Cells % (auto) 0.0, Prothrombin Time 28.2H, Prothromb Time International Ratio 2.66, Anion Gap 5L, Glomerular Filtration Rate > 60.0, Blood Urea Nitrogen 20#H, Creatinine 0.84, Sodium Level 139, Potassium Level 3.8, C hloride Level 106, Carbon Dioxide Level 28, Calcium Level 9.0, Magnesium Level 2.2 CBC/BMP Laboratory Tests 08/22/18 05:38 Red Blood Count 4.44, Mean Corpuscular Volume 89.6, Mean Corpuscular Hemoglobin 29.1, Mean Corpuscular Hemoglobin Concent 32.4, Red Cell Distribution Width 14.7 H, Calcium Level 9.0 Discharge Medications Scheduled Cefdinir (Cefdinir) 300 Mg Capsule, 300 MG PO BID Diltiazem Hcl (Cardizem) 60 Mg Tab, 60 MG PO TID, (Reported) Furosemide (Furosemide) 40 Mg Tab, 40 MG PO DAILY, (Reported) Levothyroxine Sodium (Levothyroxine Sodium) 175 Mcg Tab, 175 MCG PO DAILY, (Reported) Losartan Potassium (Losartan Potassium) 25 Mg Tab, 25 MG PO QHS, (Reported) Metoprolol Tartrate (Metoprolol Tartrate) 100 Mg Tab, 200 MG PO QAM, (Reported) Metoprolol Tartrate (Metoprolol Tartrate) 100 Mg Tab, 100 MG PO QHS, (Reported) Potassium Chloride (K-Tab ER) 10 Meq Tab, 10 MEQ PO DAILY, (Reported) Spironolactone (Spironolactone) 25 Mg Tab, 12.5 MG PO DAILY, (Reported) Vitamin D (Vitamin D3) 1,000 Unit Tablet, 1,000 UNITS PO DAILY, (Reported) Warfarin Sodium (Warfarin Sodium) 3 Mg Tab, 3 MG PO DAILY, (Reported) 3MG DAILY, ADDITIONAL 1MG EVERY THIRD DAY (08/19/2018 WOULD HAVE BEEN THE 4MG DAY.) PATIENT TAKES QHS Allergies Coded Allergies: SEAFOOD (Verified Allergy, Severe, 05/25/18) Throat swelling Penicillins (Verified Allergy, Unknown, 05/25/18) JAXSON TRAN DO Aug 22, 2018 11:30
== END 2018-08-22 16:17 | disposition home or self-care (01) | DRG 291 ==
LOC: M ED 21:53 → M ED INP 08-20 02:36 → M PCU 08-20 17:35
PROVIDERS: ADMIT Internal Medicine; ATTEND Family Medicine
DX: I11.0 Hypertensive heart disease with heart failure (principal); J96.01 Acute respiratory failure with hypoxia; J15.9 Unspecified bacterial pneumonia; I50.33 Acute on chronic diastolic (congestive) heart failure; E03.9 Hypothyroidism, unspecified; I48.91 Unspecified atrial fibrillation; Z79.01 Long term (current) use of anticoagulants; Z79.899 Other long term (current) drug therapy; Z91.013 Allergy to seafood; Z88.0 Allergy status to penicillin

== ENCOUNTER 2019-04-20 13:14 | Inpatient (IN) | payer MEDICARE ==
[~2019-04-20] VITALS: Ht 175.3 cm; Wt 116.3 kg
[~2019-04-20 13:14] MED LIST changes: +CEFD300CAP PO; +CHOL100029 PO
[2019-04-20 13:53] LABS: BASO % 0.3 % (0.0-1.0); EOS # 0.1 10^3/uL (0.0-0.5); EOS % 0.8 % (0.0-3.0); HEMATOCRIT 41.1 % (36.0-47.0); HEMOGLOBIN 13.3 g/dl (12.0-15.5); LYMPH # 1.7 10^3/uL (1.5-5.0); LYMPH % 12.3 % (24.0-44.0); MEAN CORPUSCULAR HEMOGLOBIN 29.8 pg (27.0-33.0); MEAN CORPUSCULAR HGB CONC 32.4 g/dl (32.0-36.5); MEAN CORPUSCULAR VOLUME 92.2 fl (80.0-96.0); MONO # 0.8 10^3/uL (0.0-0.8); NEUTROPHILS # 10.9 10^3/uL (1.5-8.5); NEUTROPHILS % 79.9 % (36.0-66.0); PLATELET COUNT, AUTOMATED 268 10^3/uL (150-450); RED BLOOD COUNT 4.46 10^6/uL (4.00-5.40); WHITE BLOOD COUNT 13.6 10^3/uL (4.0-10.0)
[2019-04-20 14:17] LABS: ALBUMIN 3.9 GM/DL (3.2-5.2); ALT/SGPT 30 U/L (12-78); BILIRUBIN,DIRECT 0.3 MG/DL (0.0-0.2); BILIRUBIN,TOTAL 0.8 MG/DL (0.2-1.0); BLOOD UREA NITROGEN 11 MG/DL (7-18); CALCIUM LEVEL 9.3 MG/DL (8.8-10.2); CARBON DIOXIDE LEVEL 26 MEQ/L (21-32); CHLORIDE LEVEL 109 MEQ/L (98-107); CREATININE FOR GFR 0.81 MG/DL (0.55-1.30); GLOMERULAR FILTRATION RATE > 60.0 (>39); GLUCOSE, FASTING 134 MG/DL (70-100); POTASSIUM SERUM 4.4 MEQ/L (3.5-5.1); SODIUM LEVEL 141 MEQ/L (136-145); TOTAL PROTEIN 7.9 GM/DL (6.4-8.2)
[2019-04-20 14:28] LABS: INR 2.45; PARTIAL THROMBOPLASTIN TIME 37.9 SECONDS (25.0-38.4); PROTHROMBIN TIME 26.4 SECONDS (11.8-14.0)
[2019-04-20 14:38] LABS: CK-MB VALUE MASS < 1.0 NG/ML (<3.6); CPK CREATINE PHOSPHOKINASE 45 U/L (26-192); MB/CK RELATIVE INDEX 2.22 (< OR =4); TROPONIN I < 0.02 NG/ML (< 0.10)
[2019-04-20 17:04] VITALS: O2SAT 89
[2019-04-20] MEDS ORDERED: LevoFLOXacin IV 750 MG in IV 1 EA IV ONE (17:30)
--- NOTE | 2019-04-20 17:35 | ECGEPIP ---
[facility] - ED Test Date: 2019-04-20 Pat Name: SHANE CARNEY Department: Room: - Gender: Female Classroom Aide: robbinmiranda : 1945 Requested By: ROSA Matthews Order Number: [id number] Reading MD: Alejandro Gill Measurements Intervals [place] Rate: 71 P: [place]: 0 QRS: 40 QRSD: 101 T: 4 QT: 414 QTc: 452 Interpretive Statements ATRIAL FIBRILLATION LOW QRS VOLTAGE IN PRECORDIAL LEADS INCOMPLETE RIGHT BUNDLE BRANCH BLOCK Nonspecific ST-T wave abnormalities Previous tracing done 08-19-18 was afib with rvr Electronically Signed on 04-20-2019 17:35:28 EDT by Alejandro Gill
[2019-04-20] MEDS ORDERED: IPRATROPIUM 0.5MG/ALBUTEROL 2.5MG INH SOL UD 3ML (DUONEB)(J7620) NEB PRN (18:00)
[2019-04-20] MEDS ORDERED: WARF-20 PO (18:07)
[2019-04-20] MEDS ORDERED: AZIT-12 PO (18:07)
[2019-04-20] MEDS ORDERED: VITAD1000T PO (18:07)
[2019-04-20 18:10] LABS: NT-PRO BNP 1885 PG/ML (<125)
[2019-04-20] MEDS ORDERED: CEPACOL LOZENGE PO PRN (18:15)
--- NOTE | 2019-04-20 18:56 | HPEPDOC ---
[facility] Medical History & Physical Date of Admission Apr 20, 2019 Date of Service: Apr 20, 2019 Attending Physician: MO VIDAL DO History and Physical CHIEF COMPLAINT: Shortness of Breath HISTORY OF PRESENT ILLNESS: Patient is a 73 year old female who presented to the [facility] ER with a complaint of worsening shortness of breath for 4-5 days. She stated that approximately 5 days ago she had presented to her primary care physician with a complaint of shortness of breath and pain on swallowing. At the time she was told that she had bilateral ear infections and was given an antibiotic. She stated that since taking that antibiotic she has not felt much better. She states that she is continuing to be short of breath but it is mostly with exertion. She denies any fevers, chills, or cough. She denies any sputum production. She does admit to difficulty lying flat. She states she sleeps with two pillows. She denies any leg swelling currently but states that her legs do swell. The patient presented to the ER due to her worsening shortness of breath In the ER the patient had received a chest x-ray which demonstrated a right lower lobe opacification. The patient subsequently received IV Levaquin for a suspected community associated pneumonia. The patient had a slightly elevated WBC. Her lactic acid was 1.5. Hospitalist team was consulted and the patient was admitted for further evaluation and management PAST MEDICAL HISTORY: 1. Hypertension 2. Atrial Fibrillation on chronic Warfarin 3. Congestive Heart Failure PAST SURGICAL HISTORY: 1. Appendectomy 2. Tonsillectomy 3. Cholecystectomy 4. Thyroidectomy SOCIAL HISTORY: Patient lives at home with her . She is independent in her ADLs. She is a nonsmoker. She smoked one cigarette when she was 15 years old. She denies any other IV or illicit drug use. FAMILY HISTORY: Patient denies any family history of heart disease ALLERGIES: Please see below. REVIEW OF SYSTEMS: CONSTITUTIONAL: Denies fevers, chills, unintentional weight loss or weight gain HEENT: Admits to a sore throat. Denies difficulty swallowing. Denies cough CARDIOVASCULAR: Denies chest pain. Denies palpitations. Admits tos shortness of breath lying flat RESPIRATORY: Admits to shortness of breath. Denies cough. Denies sputum production. Admits to shortness of breath with exertion GASTROINTESTINAL: Denies abdominal pain. Denies nausea, vomiting. Denies constipation or diarrhea GENITOURINARY: Denies dysuria or increased frequency SKIN: Denies rash or lesions MUSCULOSKELETAL: Denies muscle weakness NEUROLOGICAL: Denies changes in gait. Denies changes in speech PSYCHIATRIC: Denies depression or anxiety ENDOCRINE: Denies heat intolerance or cold intolerance. Denies history of diabetes HEMATOLOGIC/LYMPHATIC: Denies easy bruising or bleeding HOME MEDICATIONS: Please see below. PHYSICAL EXAMINATION: VITAL SIGNS: Temperature 99.5, pulse 76, respiratory rate 24, blood pressure 168/87, pulse oximetry 91% on room air. GENERAL APPEARANCE: Awake, alert, and oriented. Appears in no acute distress. Sitting up comfortably in stretcher. Conversive and pleasant HEENT: Atraumatic, normocephalic. Eyes are nonicteric. Trachea is midline. No posterior pharyngeal erythema CARDIOVASCULAR: Tachycardic. rate. Irregularly irregular rhythm. No clicks rubs or murmurs. No JVD. LUNGS: Scattered wheezing with bibasilar crackles. Good respiratory effort. ABDOMEN: Soft, nondistended. Nontender. No rebound tenderness or guarding. Normoactive bowel sounds throughout EXTREMITIES: Trace bilateral lower extremity edema. Full and equal pulses in bilateral upper and lower extremities NEUROLOGICAL: No focal neurological deficits PSYCHIATRIC: Mood and affect appear appropriate LABORATORY DATA: See below. IMAGING: Chest X-ray demonstrating right lower lobe opacification. Full report pending MICROBIOLOGY: Please see below. ASSESSMENT: Patient is a 73 year old female presenting to the [facility] ER with complaint of shortness of breath worsening over the past 4-5 days. She had presented to her PCP and was treated for bilateral ear infections with antibiotics. She continued to have shortness of breath. She received IV levaquin in the ER. Patients clinical presentation appeared consistent with CHF exacerbation . PLAN: 1. Shortness of breath/hypoxia 2/2 CHF exacerbation vs less likely pneumonia -Patient presented with worsening shortness of breath. Chest X-ray revealed a right lower lobe opacification. This is less likely pneumonia as the patient has no cough, sputum production, or fever. Her shortness of breath is likely s econdary to acute CHF exacerbation. -Patient has received IV Levaquin in the ER. Will hold further antibiotics. -Will obtain Procalcitonin. Will trend WBC. Patient has remained afebrile. -Will obtain a respiratory panel -Respiratory orders -Duonebs PRN 2. Acute on Chronic Congestive Heart Failure -Patient is presenting with shortness of breath. She has a history of CHF. Her BNP on presentation today is 1885. Right lower lobe opacification on chest x-ray which may be more consistent with heart failure over a community acquired pneumonia -Will obtain Echocardiogram -1500 ml Fluid restriction with I's&O's -2G Sodium Diet -Lasix 40MG IV once -Will continue IV lasix 40mg BID -Will continue patients Spironolactone 3. Hypertensive Urgency -Patient presented with hypertensive urgency. No sign of end organ damage -Will continue her home antihypertensive medications -Her BP will likely come down with lasix -Will continue to monitor BP 4. Atrial Fibrillation with RVR -Patient presented with atrial fibrillation with rapid ventricular response. This likely contributed to her acute CHF exacerbation. Patient will be continued on her home medications for rate control including Diltiazem and metoprolol -Will continue Warfarin for anticoagulation. Patients INR today is 2.45 and therapeutic -Patient will be placed on telemetry 5. Hypothyroidism 2/2 thyroidectomy -Patient is on levothyroxine at home. Will continue patients home medications -Will check TSH 6. Sore Throat -Patient stated she had a sore throat. Denies difficulty swallowing. -Will add Cepacol PRN for sore throat 7. DVT Prophylaxis -Patient is currently on Warfarin with therapeutic INR IMo, have independently examined this patient and performed my own physical exam, as well as reviewed the documentation. I have discussed in detail with the resident / student the findings and plan of treatment as documented by the resident / student. I agree with their findings and treatment plan. I will continue to follow the patient during this hospital stay. Vital Signs Vital Signs Date Time Temp Pulse Resp B/P (MAP) Pulse Ox O2 Delivery O2 Flow Rate FiO2 04/20/19 17:04 89 Room Air 04/20/19 15:44 79 04/20/19 15:31 192/92 (125) 04/20/19 13:15 99.5 24 Laboratory Data Labs 24H Laboratory Tests 2 04/20/19 13:37: Immature Granulocyte % (Auto) 0.7, Neutrophils (%) (Auto) 79.9H, Lymphocytes (%) (Auto) 12.3L, Monocytes (%) (Auto) 6.0H, Eosinophils (%) (Auto) 0.8, Basophils (%) (Auto) 0.3, Neutrophils # (Auto) 10.9H, Lymphocytes # (Auto) 1.7, Monocytes # (Auto) 0.8, Eosinophils # (Auto) 0.1, Basophils # (Auto) 0.0, Nucleated Red Blood Cells % (auto) 0.0, Prothrombin Time 26.4H, Prothromb Time International Ratio 2.45, Activated Partial Thromboplast Time 37.9, Anion Gap 6L, Glomerular Filtration Rate > 60.0, Lactic Acid Level 1.5, Calcium Level 9.3, Total Bilirubin 0.8, Direct Bilirubin 0.3H, Aspartate Amino Transf (AST/SGOT) 26, Alanine Aminotransferase (ALT/SGPT) 30, Alkaline Phosphatase 110, Total Creatine Kinase 45, Creatine Kinase MB < 1.0, Creatine Kinase MB Relative Index 2.22, Troponin I < 0.02, Total Protein 7.9, Albumin 3.9, Albumin/Globulin Ratio 0.98L CBC/BMP Laboratory Tests 04/20/19 13:37 Home Medications Scheduled Cholecalciferol (Vitamin D3) (Vitamin D3) 1,000 Unit Tablet, 1,000 UNITS PO DAILY Diltiazem Hcl (Cardizem) 60 Mg Tab, 60 MG PO TID Furosemide (Lasix) 40 Mg Tablet, 60 MG PO DAILY Take 1 1/2 Tablet (60mg) daily Levothyroxine Sodium (Levothyroxine Sodium) 175 Mcg Tab, 175 MCG PO DAILY Losartan Potassium (Losartan Potassium) 25 Mg Tab, 25 MG PO QHS Metoprolol Tartrate (Metoprolol Tartrate) 100 Mg Tab, 200 MG PO QAM Metoprolol Tartrate (Metoprolol Tartrate) 100 Mg Tab, 100 MG PO QHS Spironolactone (Spironolactone) 25 Mg Tab, 12.5 MG PO DAILY Warfarin Sodium (Warfarin Sodium) 3 Mg Tab, 3 MG PO 5XW MON-FRI, QHS Warfarin Sodium (Warfarin Sodium) 4 Mg Tablet, 2 MG PO 2XW SAT, SUN. QHS Allergies Coded Allergies: SEAFOOD (Verified Allergy, Severe, 05/25/18) Throat swelling Penicillins (Verified Allergy, Unknown, 05/25/18) A-FIB/CHADSVASC A-FIB History Current/History of A-Fib/PAF?: Yes Current PO Anticoag Therapy: Yes LEOLA HURD DO Apr 20, 2019 18:56 MO VIDAL DO Apr 22, 2019 13:47
[2019-04-20] MEDS ORDERED: FUROSEMIDE 40 MG/4 ML VIAL (J1940) IV ONE (19:00)
[2019-04-20 21:20] VITALS: BP 179/114
[2019-04-20 22:00] VITALS: BP 170/90
[2019-04-20] MEDS: WARFARIN SOD 2 MG TAB PO SCH (22:01)
[2019-04-20] MEDS: LOSARTAN 25 MG TAB PO SCH (22:01)
[2019-04-20] MEDS: METOPROLOL TARTRATE 100 MG TAB PO SCH (22:01)
[2019-04-20 23:14] VITALS: BP 143/83
[2019-04-21] MEDS: LEVOTHYROXINE 150MCG TABLET (0.15MG) PO SCH (05:32)
[2019-04-21] MEDS: LEVOTHYROXINE 25MCG TABLET (0.025MG) PO SCH (05:32)
[2019-04-21 05:56] LABS: HEMATOCRIT 37.3 % (36.0-47.0); MEAN CORPUSCULAR HEMOGLOBIN 29.6 pg (27.0-33.0); MEAN CORPUSCULAR HGB CONC 32.2 g/dl (32.0-36.5); MEAN CORPUSCULAR VOLUME 92.1 fl (80.0-96.0); PLATELET COUNT, AUTOMATED 186 10^3/uL (150-450); RED BLOOD COUNT 4.05 10^6/uL (4.00-5.40); WHITE BLOOD COUNT 11.5 10^3/uL (4.0-10.0)
[2019-04-21 06:00] VITALS: BP 150/89
[2019-04-21 06:26] LABS: BLOOD UREA NITROGEN 11 MG/DL (7-18); CALCIUM LEVEL 8.7 MG/DL (8.8-10.2); CARBON DIOXIDE LEVEL 27 MEQ/L (21-32); CHLORIDE LEVEL 111 MEQ/L (98-107); CREATININE FOR GFR 0.71 MG/DL (0.55-1.30); GLOMERULAR FILTRATION RATE > 60.0 (>39); GLUCOSE, FASTING 138 MG/DL (70-100); POTASSIUM SERUM 4.1 MEQ/L (3.5-5.1); SODIUM LEVEL 142 MEQ/L (136-145)
[2019-04-21] MEDS: METOPROLOL TARTRATE 100 MG TAB PO SCH ×2 (09:15→20:39)
[2019-04-21] MEDS: FUROSEMIDE 40 MG/4 ML VIAL (J1940) IV SCH ×2 (09:16→15:55)
[2019-04-21] MEDS: SPIRONOLACTONE 12.5MG PER 1/2 TABLET PO SCH (09:16)
--- NOTE | 2019-04-21 09:58 | REP ---
REASON: Cough and dyspnea. COMPARISON: Multiple, the latest 08/19/2018. The patchy opacities seen in the right lower lobe on the latest prior examination have improved. Subtle right basilar opacities are again noted. There is global cardiomegaly accentuated by technique. The technique utilized in obtaining the radiograph has magnified the cardiac silhouette and accentuated the interstitial markings. There is no change in the osseous structures. IMPRESSION: Cardiomegaly and possible early right basilar pneumonia. Unreviewed
[2019-04-21 14:00] VITALS: BP 147/60
--- NOTE | 2019-04-21 16:12 | IPNPDOC ---
Text Note Date of Service The patient was seen on 04/21/19. NOTE Subjective: Patient stated that her breathing markedly improved. She developed a good urine output overnight. No any acute events overnight Objective: VITAL SIGNS: Please see below. GENERAL APPEARANCE: not in apparent distress HEENT: Normocephalic, atraumatic. Mucous members moist and pink CARDIOVASCULAR: Regular rate and rhythm. No murmurs, rubs or gallops. Radial pulses are intact. There is no lower extremity edema LUNGS: Mild crackles bilaterally at the base ABDOMEN: Abdomen is soft and nontender. MUSCULOSKELETAL: Range of motion is intact in all 4 extremities NEUROLOGICAL: Cranial nerves II-12 are grossly intact. Speech is not dysarthric Assessment and plan Patient 73 years old female with past history of diastolic CHF, atrial fibrillation, hypertension presented hospital with increased shortness of breath. Patient was found to have acute CHF exacerbation. Shortness of breath Most likely secondary to CHF exacerbation, markedly improved today after diure sis Still needs 2 L of oxygen via nasal cannula Respiratory panel negative Will repeat chest x-ray Acute on chronic congestive heart failure BNP significantly elevated to 1880 Patient has diastolic CHF Await echo result Continue cardio diet Lasix by mouth I's and O's Hypertensive urgency Resolved Blood pressures under control Continue home meds Chronic atrial fibrillation Heart rate is under control Continue warfarin, will continue to monitor her INR Hypothyroidism Continue levothyroxine VS,Fishbone, I+O VS, Fishbone, I+O Laboratory Tests 04/21/19 05:19 Vital Signs Date Time Temp Pulse Resp B/P (MAP) Pulse Ox O2 Delivery O2 Flow Rate FiO2 04/21/19 15:56 80 148/72 04/21/19 14:00 98.6 17 92 Nasal Cannula 2.0 I&O- Last 24 Hours up to 6 AM 04/21/19 06:00 Intake Total 150 ml Output Total 575 ml Balance -425 ml HORTENSIA VIDAL DO Apr 21, 2019 16:12
[2019-04-21] MEDS: FUROSEMIDE 20 MG TAB PO SCH (16:25)
[2019-04-21 17:42] LABS: INR 2.43; PROTHROMBIN TIME 26.3 SECONDS (11.8-14.0)
[2019-04-21 20:15] VITALS: BP 147/74
[2019-04-21 20:32] LABS: BLOOD UREA NITROGEN 13 MG/DL (7-18); CALCIUM LEVEL 9.2 MG/DL (8.8-10.2); CARBON DIOXIDE LEVEL 29 MEQ/L (21-32); CHLORIDE LEVEL 105 MEQ/L (98-107); GLOMERULAR FILTRATION RATE > 60.0 (>39); GLUCOSE, FASTING 155 MG/DL (70-100); MAGNESIUM LEVEL 2.2 MG/DL (1.8-2.4); POTASSIUM SERUM 3.6 MEQ/L (3.5-5.1); SODIUM LEVEL 142 MEQ/L (136-145)
[2019-04-21] MEDS: LOSARTAN 25 MG TAB PO SCH (20:39)
[2019-04-21] MEDS: WARFARIN SOD 2 MG TAB PO SCH (20:39)
[2019-04-21] MEDS ORDERED: POTASSIUM CHLORIDE 10% LIQ 20 MEQ/15 ML UDC PO ONE (21:15)
[2019-04-22 06:00] VITALS: BP 127/65
[2019-04-22 06:08] LABS: HEMATOCRIT 37.1 % (36.0-47.0); HEMOGLOBIN 12.1 g/dl (12.0-15.5); MEAN CORPUSCULAR HEMOGLOBIN 29.9 pg (27.0-33.0); MEAN CORPUSCULAR HGB CONC 32.6 g/dl (32.0-36.5); MEAN CORPUSCULAR VOLUME 91.6 fl (80.0-96.0); PLATELET COUNT, AUTOMATED 217 10^3/uL (150-450); RED BLOOD COUNT 4.05 10^6/uL (4.00-5.40); WHITE BLOOD COUNT 9.6 10^3/uL (4.0-10.0)
[2019-04-22] MEDS: LEVOTHYROXINE 150MCG TABLET (0.15MG) PO SCH (06:08)
[2019-04-22] MEDS: LEVOTHYROXINE 25MCG TABLET (0.025MG) PO SCH (06:08)
[2019-04-22 06:27] LABS: BLOOD UREA NITROGEN 15 MG/DL (7-18); CALCIUM LEVEL 9.3 MG/DL (8.8-10.2); CARBON DIOXIDE LEVEL 29 MEQ/L (21-32); CHLORIDE LEVEL 106 MEQ/L (98-107); CREATININE FOR GFR 0.74 MG/DL (0.55-1.30); GLOMERULAR FILTRATION RATE > 60.0 (>39); GLUCOSE, FASTING 128 MG/DL (70-100); POTASSIUM SERUM 3.6 MEQ/L (3.5-5.1); SODIUM LEVEL 142 MEQ/L (136-145)
[2019-04-22 08:00] VITALS: BP 120/68
[2019-04-22] MEDS: POTASSIUM CHLORIDE 10 MEQ SR TABLET PO ONE ×2 (08:00→08:45)
--- NOTE | 2019-04-22 08:16 | REP ---
Portable chest x-ray: Single view. History: CHF. Comparison chest x-ray: April 20 2019. Findings: EKG monitoring electrodes overlie the chest. Mild cardiomegaly is observed unchanged. No infiltrate is seen. Pleural angles are sharp. No significant bony abnormality. Impression: Mild cardiomegaly. Otherwise no acute disease. Electronically Signed by Dangelo Dozier MD 04/22/2019 08:08 A
[2019-04-22 08:46] VITALS: BP 120/68
[2019-04-22] MEDS: METOPROLOL TARTRATE 100 MG TAB PO SCH (08:46)
[2019-04-22] MEDS: FUROSEMIDE 20 MG TAB PO SCH (08:47)
[2019-04-22] MEDS: SPIRONOLACTONE 12.5MG PER 1/2 TABLET PO SCH (08:47)
[2019-04-22] MEDS ORDERED: LASI40TA9 PO (11:54)
--- NOTE | 2019-04-22 16:04 | DS.PDOC ---
Discharge Summary General Date of Admission Apr 20, 2019 at 18:01 Date of Discharge 04/22/2019 Attending Physician: HORTENSIA BARNEY DO Discharge Summary PROCEDURES PERFORMED DURING STAY: [None]. ADMITTING DIAGNOSES: 1. Acute on Chronic Congestive Heart Failure 2. Hypertensive Urgency 3. Atrial Fibrillation with RVR DISCHARGE DIAGNOSES: 1. Acute on Chronic Congestive Heart Failure 2. Hypertensive Urgency 3. Atrial Fibrillation with RVR COMPLICATIONS/CHIEF COMPLAINT: CHF. HISTORY OF PRESENT ILLNESS: Patient is a 73 year old female who presented to the [facility] ER with a complaint of worsening shortness of breath for 4-5 days. She stated that approximately 5 days ago she had presented to her primary care physician with a complaint of shortness of breath and pain on swallowing. At the time she was told that she had bilateral ear infections and was given an antibiotic. She stated that since taking that antibiotic she has not felt much better. She had continued shortness of breath but it is mostly with exertion. She denied any fevers, chills, or cough. She denied any sputum production. She did admit to difficulty lying flat. She stated she sleeps with two pillows. She denied any leg swelling currently but stated that her legs do swell. The patient presented to the ER due to her worsening shortness of breath In the ER the patient had received a chest x-ray which demonstrated a right lower lobe opacification. The patient subsequently received IV Levaquin for a suspected community associated pneumonia. The patient had a slightly elevated WBC. Her lactic acid was 1.5. Hospitalist team was consulted and the patient was admitted for further evaluation and management HOSPITAL COURSE: On admission the patient was felt to have an acute exacerbation of congestive heart failure. It was felt unlikely that her symptoms were related to pneumonia. She had no clinical signs indicating a respiratory infection with exception to shortness of breath. She received a respiratory panel which was negative. Patient was given IV lasix. She was placed on a fluid and salt restriction. Patient diuresed approximately 6.5L during her hospital course. The patient noted significant improvement in her shortness of breath and no longer required supplemental oxygen. Patients atrial fibrillation remained rate controlled. She was subsequently discharged with recommendations for fluid restriction and salt restriction. She was placed on 60 mg PO lasix daily. Patient will follow-up with her PCP and Certifier outpatient DISCHARGE MEDICATIONS: Please see below. ALLERGIES: Please see below. PHYSICAL EXAMINATION ON DISCHARGE: VITAL SIGNS: Please see below. GENERAL: Awake, alert, and oriented. Appears in no acute distress. Sitting up comfortably on edge of bed comfortably HEENT: Atraumatic, normocephalic. Eyes are nonicteric. Trachea is midline. NECK: No palpable, cervical, axillary, or supraclavicular lymphadenopathy CARDIOVASCULAR EXAMINATION: Irregularly irregular rhythm. Slightly tachycardic rate. No clicks, rubs, or murmurs RESPIRATORY EXAMINATION: Clear vesicular breath sounds bilaterally. No wheezes, rhonchi, or rales ABDOMINAL EXAMINATION: Soft, nondistended. Nontender. No rebound tenderness or guarding. Normoactive bowel sounds throughout EXTREMITIES: No edema. Full and equal pulses in bilateral upper and lower extremities SKIN: No rashes or lesions NEUROLOGICAL EXAMINATION: No focal neurological deficits PSYCHIATRIC EXAMINATION: Mood and affect appear appropriate LABORATORY DATA: Please see below. IMAGING: REASON: Cough and dyspnea. COMPARISON: Multiple, the latest 08/19/2018. The patchy opacities seen in the right lower lobe on the latest prior examination have improved. Subtle right basilar opacities are again noted. There is global cardiomegaly accentuated by technique. The technique utilized in obtaining the radiograph has magnified the cardiac silhouette and accentuated the interstitial markings. There is no change in the osseous structures. IMPRESSION: Cardiomegaly and possible early right basilar pneumonia. Portable chest x-ray: Single view. History: CHF. Comparison chest x-ray: April 20 2019. Findings: EKG monitoring electrodes overlie the chest. Mild cardiomegaly is observed unchanged. No infiltrate is seen. Pleural angles are sharp. No significant bony abnormality. Impression: Mild cardiomegaly. Otherwise no acute disease. Electronically Signed by Dangelo Dozier MD 04/22/2019 08:08 A PROGNOSIS: GOOD ACTIVITY: [As tolerated]. DIET: 2G Sodium Restricted. 1500ml Fluid restriction DISCHARGE PLAN: Patient is to be discharged home with follow-up with her PCP in 7-10 days. She is to follow-up with her dental scheduler for Echocardiogram. She is to adhere to sodium restricted diet. She is to adhere to 1500ml fluid restrictio n. Patient will start 60mg PO Lasix daily. She will follow-up with her PCP and Certifier for further titration and management of her medications. Patient was instructed to return to the hospital if her symptoms worsen DISPOSITION: 01 Home, Self-Care. DISCHARGE CONDITION: [Stable]. TIME SPENT ON DISCHARGE: Greater than 45 minutes. I, Hortensia Barney, have independently examined this patient and performed my own physical exam, as well as reviewed the documentation. I have discussed in detail with the resident / student the findings and plan of treatment as documented by the resident / student. I agree with their findings and treatment plan. I will continue to follow the patient during this hospital stay. Vital Signs/I&Os Vital Signs Date Time Temp Pulse Resp B/P (MAP) Pulse Ox O2 Delivery O2 Flow Rate FiO2 04/22/19 08:47 108 04/22/19 08:46 120/68 04/22/19 08:00 98.5 20 94 04/22/19 06:00 NIPPV (BIPAP/CPAP) 04/21/19 20:44 1.0 I&O- Last 24 Hours up to 6 AM 04/22/19 06:00 Intake Total 740 ml Output Total 6500 ml Balance -5760 ml Laboratory Data Labs 24H Laboratory Tests 2 04/21/19 17:00: Prothrombin Time 26.3H, Prothromb Time International Ratio 2.43 04/21/19 19:57: Anion Gap 8, Glomerular Filtration Rate > 60.0, Calcium Level 9.2, Magnesium Level 2.2 04/22/19 05:20: Anion Gap 7L, Glomerular Filtration Rate > 60.0, Calcium Level 9.3, Nucleated Red Blood Cells % (auto) 0.0 CBC/BMP Laboratory Tests 04/21/19 19:57 04/22/19 05:20 Microbiology Microbiology 04/20/19 Respiratory Virus Panel (PCR) ([facility]) - Final, Complete 04/20/19 Blood Culture - Preliminary, Resulted No growth after 24 hours . All specim... Discharge Medications Scheduled Cholecalciferol (Vitamin D3) (Vitamin D3) 1,000 Unit Tablet, 1,000 UNITS PO DAILY, (Reported) Diltiazem Hcl (Cardizem) 60 Mg Tab, 60 MG PO TID, (Reported) Furosemide (Lasix) 40 Mg Tablet, 60 MG PO DAILY Take 1 1/2 Tablet (60mg) daily Levothyroxine Sodium (Levothyroxine Sodium) 175 Mcg Tab, 175 MCG PO DAILY, (Reported) Losartan Potassium (Losartan Potassium) 25 Mg Tab, 25 MG PO QHS, (Reported) Metoprolol Tartrate (Metoprolol Tartrate) 100 Mg Tab, 200 MG PO QAM, (Reported) Metoprolol Tartrate (Metoprolol Tartrate) 100 Mg Tab, 100 MG PO QHS, (Reported) Spironolactone (Spironolactone) 25 Mg Tab, 12.5 MG PO DAILY, (Reported) Warfarin Sodium (Warfarin Sodium) 3 Mg Tab, 3 MG PO 5XW, (Reported) MON-MON, QHS Warfarin Sodium (Warfarin Sodium) 4 Mg Tablet, 2 MG PO 2XW, (Reported) SAT, SUN. QHS Allergies Coded Allergies: SEAFOOD (Verified Allergy, Severe, 05/25/18) Throat swelling Penicillins (Verified Allergy, Unknown, 05/25/18) LEOLA HURD DO Apr 22, 2019 16:04 HORTENSIA BARNEY DO Apr 24, 2019 13:15
[2019-04-22] MEDS ORDERED: WARFARIN SOD 3 MG TAB PO SCH (21:00)
--- NOTE | 2019-04-23 09:48 | ECGEPIP ---
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 NO SIGNIFICANT CHANGES Electronically Signed on 04-23-2019 9:48:08 EDT by Hunter Nguyen
== END 2019-04-22 13:45 | disposition home or self-care (01) | DRG 292 ==
LOC: M ED 13:14 → M ED INP 18:01 → ENRESERVDT 20:18 → ENRESERVTM 20:18 → M MSPAV 21:20
PROVIDERS: ADMIT Internal Medicine; ATTEND Internal Medicine
DX: I11.0 Hypertensive heart disease with heart failure (principal); I48.20 Chronic atrial fibrillation, unspecified; I50.33 Acute on chronic diastolic (congestive) heart failure; E89.0 Postprocedural hypothyroidism; I16.0 Hypertensive urgency; J02.9 Acute pharyngitis, unspecified; Z66 Do not resuscitate; Z90.49 Acquired absence of other specified parts of digestive tract; Z79.01 Long term (current) use of anticoagulants; Z79.899 Other long term (current) drug therapy; Z88.0 Allergy status to penicillin; Z91.013 Allergy to seafood

== ENCOUNTER 2019-12-18 17:28 | Inpatient (IN) | payer MEDICARE ==
[~2019-12-18] VITALS: Ht 177.8 cm; Wt 96.8 kg
[~2019-12-18 17:28] MED LIST changes: +AZIT-12 PO; +D31000TA2 PO; +LASI40TA9 PO
[2019-12-18 18:21] LABS: BASO % 0.2 % (0.0-1.0); HEMATOCRIT 40.8 % (36.0-47.0); HEMOGLOBIN 13.2 g/dl (12.0-15.5); LYMPH # 1.1 10^3/uL (1.5-5.0); LYMPH % 12.1 % (24.0-44.0); MEAN CORPUSCULAR HEMOGLOBIN 29.9 pg (27.0-33.0); MEAN CORPUSCULAR HGB CONC 32.4 g/dl (32.0-36.5); MEAN CORPUSCULAR VOLUME 92.3 fl (80.0-96.0); MONO # 0.9 10^3/uL (0.0-0.8); MONO % 9.8 % (0.0-5.0); NEUTROPHILS % 77.2 % (36.0-66.0); PLATELET COUNT, AUTOMATED 178 10^3/uL (150-450); RED BLOOD COUNT 4.42 10^6/uL (4.00-5.40)
[2019-12-18 18:39] LABS: INR 1.84; PROTHROMBIN TIME 21.7 SECONDS (12.5-14.3)
[2019-12-18 18:40] LABS: PARTIAL THROMBOPLASTIN TIME 41.7 SECONDS (24.2-38.5)
[2019-12-18 18:57] LABS: ALBUMIN 4.1 GM/DL (3.2-5.2); ALT/SGPT 29 U/L (12-78); BILIRUBIN,DIRECT 0.3 MG/DL (0.0-0.2); BILIRUBIN,TOTAL 0.7 MG/DL (0.2-1.0); BLOOD UREA NITROGEN 10 MG/DL (7-18); CALCIUM LEVEL 9.2 MG/DL (8.8-10.2); CARBON DIOXIDE LEVEL 25 MEQ/L (21-32); CHLORIDE LEVEL 106 MEQ/L (98-107); CK-MB VALUE MASS < 1.0 NG/ML (<3.6); CPK CREATINE PHOSPHOKINASE 40 U/L (26-192); CREATININE FOR GFR 0.87 MG/DL (0.55-1.30); GLOMERULAR FILTRATION RATE > 60.0 (>39); GLUCOSE, FASTING 129 MG/DL (70-100); LIPASE 77 U/L (73-393); NT-PRO BNP 2260 PG/ML (<125); POTASSIUM SERUM 4.2 MEQ/L (3.5-5.1); SODIUM LEVEL 138 MEQ/L (136-145); THYROID STIMULATING HORMONE 0.451 uIU/ML (0.358-3.740); TOTAL PROTEIN 7.8 GM/DL (6.4-8.2); TROPONIN I < 0.02 NG/ML (< 0.10)
[2019-12-18] MEDS ORDERED: LABETALOL 100MG/20ML VIAL IV STA (20:22)
--- NOTE | 2019-12-18 20:27 | REPVR ---
PROCEDURE INFORMATION: Exam: XR Chest, 1 View Exam date and time: 12/18/2019 7:47 PM Age: 74 years old Clinical indication: Other: Cough; Additional info: Dyspnea/cough TECHNIQUE: Imaging protocol: XR of the chest Views: 1 view. COMPARISON: AL PORTABLE CHEST X-RAY 04/21/2019 4:49 PM FINDINGS: Lungs: Unremarkable. No consolidation. Pleural space: Unremarkable. No pleural effusion. No pneumothorax. Heart/Mediastinum: Cardiomegaly. Bones/joints: Unremarkable. IMPRESSION: 1. Cardiomegaly. 2. No acute infiltrates. Electronically signed by: Lee Ramachandran On 12/18/2019 20:26:56 PM
[2019-12-18] MEDS ORDERED: PATIENT COMMENT (20:59)
[2019-12-18] MEDS ORDERED: JANU100T PO (20:59)
[2019-12-18] MEDS ORDERED: FURO40TA2 PO (20:59)
[2019-12-18] MEDS ORDERED: WARFARIN SOD 3MG TAB PO ONE (21:00)
[2019-12-18 21:03] LABS: D-DIMER QUANT 436.46 ng/ml (<500)
[2019-12-18 21:05] LABS: C REACTIVE PROTEIN QUANTITATIV 4.11 MG/DL (0.00-0.30); FERRITIN 201 NG/ML (8-252); LDH LACTATE DEHYDROGENASE 221 U/L (84-246); TRIGLYCERIDES LEVEL 76 MG/DL (<150)
[2019-12-18] MEDS ORDERED: diltiaZEM 125 MG in NS 100 ML IV SCH (21:15)
[2019-12-18] MEDS ORDERED: MAALOX 30 ML SUSP *UDC PO PRN (21:30)
[2019-12-18] MEDS ORDERED: MOM 30ML SUSPENSION UDC PO PRN (21:30)
[2019-12-18 21:45] LABS: PARTIAL THROMBOPLASTIN TIME 38.6 SECONDS (24.2-38.5)
[2019-12-18] MEDS: ACETAMINOPHEN TAB 650MG DOSE (2X325MG) PO PRN (21:45)
[2019-12-18 21:49] LABS: INR 1.79; PROTHROMBIN TIME 21.2 SECONDS (12.5-14.3)
[2019-12-18 22:00] VITALS: O2SAT 90
[2019-12-18 22:00] LABS: ALBUMIN 3.8 GM/DL (3.2-5.2); ALT/SGPT 30 U/L (12-78); BILIRUBIN,DIRECT 0.3 MG/DL (0.0-0.2); BILIRUBIN,TOTAL 0.7 MG/DL (0.2-1.0); CK-MB VALUE MASS < 1.0 NG/ML (<3.6); CPK CREATINE PHOSPHOKINASE 43 U/L (26-192); MB/CK RELATIVE INDEX 2.33 (< OR =4); TOTAL PROTEIN 7.8 GM/DL (6.4-8.2); TROPONIN I < 0.02 NG/ML (< 0.10)
--- NOTE | 2019-12-18 22:01 | HPEPDOC ---
[facility] Medical History & Physical Date of Admission Dec 18, 2019 Date of Service: Dec 18, 2019 Attending Physician: ANJELICA DAY MD History and Physical CHIEF COMPLAINT: Difficulty breathing, body aches HISTORY OF PRESENT ILLNESS: Patient is a 74-year-old female who presented for her history of off-and-on body aches. Patient states that she has been having pain all throughout her body that he treated with Tylenol however, it does return. Patient is unsure whether not she had a fever with this. Patient states that she has been feeling some difficulty breathing although she does have a history of lung disease which causes her to feel short of breath. Patient says that her shortness of breath is slightly worse than her usual baseline. Patient also states that she's been having some abdominal and chest pain. Both these pains are treated with Tylenol but soon returned. In the emergency department, patient was found to have atrial fibrillation with a rapid ventricular rate, high blood pressure, and tested positive for COVID-19. Patient is unsure where she contracted the virus. Patient denies having any productive cough with says she has been coughing slightly more than usual and is been taking a cough syrup which helped a little bit. PAST MEDICAL HISTORY: 1. Hypertension. 2. Atrial fibrillation on chronic warfarin. 3. Congestive heart failure. PAST SURGICAL HISTORY: 1. Appendectomy. 2. Tonsillectomy. 3. Cholecystectomy. 4. Thyroidectomy SOCIAL HISTORY: Patient denies tobacco, alcohol, or illicit drug use. Patient lives at home with her . FAMILY HISTORY: Family history of heart disease ALLERGIES: Please see below. REVIEW OF SYSTEMS: General: Patient reports she is unsure whether or not she has a fever patient thinks her thermometer was broken. HEENT: Patient reports headaches but denies runny nose, sore throat Cardiovascular: Patient denies chest pain Respiratory: Patient reports increased shortness of breath and a nonproductive cough GI: Patient reports abdominal pain but denies nausea, vomiting, diarrhea : Patient denies increased frequency or pain with urination Extremities: Patient denies swelling or pain in extremities Neurological: Patient denies numbness or tingling in legs Skin: Patient denies any new rashes or lesions. Hematologic: Patient denies any easy bruising. Lymphatic: Patient denies any lumps lumps or bumps in neck, axilla, or groin HOME MEDICATIONS: Please see below. PHYSICAL EXAMINATION: VITAL SIGNS: See below General: Alert and oriented female patient who is laying on the short-term I walked into the room. Patient did not appear to be in any acute distress. HEENT: Normocephalic, atraumatic, moist mucous membranes. Neck: No lymphadenopathy or thyromegaly Cardiac: Irregularly irregular rhythm with a tachycardic rate, no murmurs auscultated Pulm: Clear to auscultation bilaterally. No wheezes, rhonchi, rales Abd: Nondistended, mild tenderness to palpation throughout the abdomen, normal bowel sounds Ext: No edema bilateral lower extremities Skin: There is a mole on her back between the scapula at the midline that has black spots in it in appears different than all the other moles that are on the patient's back. LABORATORY DATA: See below. IMAGING: A chest x-ray performed on 12/18/2019 was reported to show no infiltrate and cardiomegaly MICROBIOLOGY: Please see below. ASSESSMENT: Patient is a 74-year-old female came in with body aches and shortness of breath who was found to be in atrial fibrillation with a rapid ventricular rate and was tested positive for Covid 19. . PLAN: 1. Atrial fibrillation with a rapid ventricular rate. Patient will be given her by mouth medications as her heart rate in the emergency department was in the 110-120 range for most the time. We'll continue to monitor the patient on telemetry. Patient is on metoprolol 200 mg in the morning, 100 mg at night. Patient is also on Cardizem 60 mg 3 times a day. Patient was given 20 mg of IV Cardizem in the emergency department. This may be the cause of the patient's shortness of breath. The positive Covid 19 tests could've been the inciting event for the rapid ventricular rate as the patient has a history of chronic atrial fibrillation. We will continue to monitor the patient. 2. Covid 19. At this time, the patient's oxygen saturations are about where she has been documented in prior hospitalizations. We will continue to monitor the patient's oxygen and titrate her oxygen to be around 92%. Because there are no infiltrates on her x-ray and her laboratory studies appear within normal range, we'll not begin treatment with Decadron or remdesivir at this time. 3. Shortness of breath. This is most likely secondary to the atrial fibrillation with rapid ventricular rate however, Covid 19 can also be playing a role. We w ill monitor the patient's oxygen saturations as above. 4. Hypertension. Patient's blood pressure was quite elevated in the emergency department, she had a dose of labetalol. We'll continue with her home medications and monitor this closely. 5. Congestive heart failure. At this time the patient appears compensated. We'll continue to monitor. 6. Skin lesion. Patient has a "ugly duckling" lesion in the center of her upper back. Patient denies having any history of skin malignancies however, this lesion should be followed up outpatient for possible biopsy as it appears different than the other moles and freckles that the patient has on her back. 7. DVT prophylaxis: Patient is on chronic Coumadin, we'll monitor her INR. 8. CODE STATUS: Patient is a DO NOT RESUSCITATE/DO NOT INTUBATE. Patient has a MOLST form signed and I have reviewed this with the patient and she wishes to continue with these orders. Vital Signs Vital Signs Date Time Temp Pulse Resp B/P (MAP) Pulse Ox O2 Delivery O2 Flow Rate FiO2 12/18/19 21:35 125 19 92 Room Air 12/18/19 21:30 154/69 (97) 12/18/19 17:28 98.6 Laboratory Data Labs 24H Laboratory Tests 2 12/18/19 17:59: Prothrombin Time 21.7H, Prothromb Time International Ratio 1.84, Activated Partial Thromboplast Time 41.7H, Fibrinogen 471H, D-Dimer, Quantitative 436.46 12/18/19 18:00: Immature Granulocyte % (Auto) 0.7, Neutrophils (%) (Auto) 77.2H, Lymphocytes (%) (Auto) 12.1L, Monocytes (%) (Auto) 9.8H, Eosinophils (%) (Auto) 0.0, Basophils (%) (Auto) 0.2, Neutrophils # (Auto) 7.0, Lymphocytes # (Auto) 1.1L, Monocytes # (Auto) 0.9H, Eosinophils # (Auto) 0.0, Basophils # (Auto) 0.0, Nucleated Red Blood Cells % (auto) 0.0, Anion Gap 7L, Glomerular Filtration Rate > 60.0, Calcium Level 9.2, Ferritin 201, Total Bilirubin 0.7, Direct Bilirubin 0.3H, Aspartate Amino Transf (AST/SGOT) 22, Alanine Aminotransferase (ALT/SGPT) 29, Alkaline Phosphatase 101, Lactate Dehydrogenase 221, Total Creatine Kinase 40, Creatine Kinase MB < 1.0, Creatine Kinase MB Relative Index 2.50, Troponin I < 0.02, C-Reactive Protein, Quantitative 4.11H, RK-Lnk-Y-Type Natriuretic Peptide 2260H, Total Protein 7.8, Albumin 4.1, Albumin/Globulin Ratio 1.1L, Triglycerides Level 76, Lipase 77, Thyroid Stimulating Hormone (TSH) 0.451 12/18/19 20:43: Lactic Acid Level 1.1 12/18/19 21:00: Activated Partial Thromboplast Time 38.6H CBC/BMP Laboratory Tests 12/18/19 18:00 Microbiology Microbiology 12/18/19 Respiratory Virus Panel (PCR) ([facility]) - Final, Complete SARS-CoV-2 (COVID 19) 12/18/19 Blood Culture, Received Pending 12/18/19 Blood Culture, Received Pending Home Medications Scheduled Cholecalciferol (Vitamin D3) (Vitamin D3) 1,000 Unit Tablet, 1,000 UNITS PO DAILY Diltiazem Hcl (Cardizem) 60 Mg Tab, 60 MG PO TID Furosemide (Furosemide) 40 Mg Tablet, 60 MG PO DAILY Levothyroxine Sodium (Levothyroxine Sodium) 175 Mcg Tab, 175 MCG PO DAILY Losartan Potassium (Losartan Potassium) 25 Mg Tab, 25 MG PO QHS Metoprolol Tartrate (Metoprolol Tartrate) 100 Mg Tab, 200 MG PO DAILY Metoprolol Tartrate (Metoprolol Tartrate) 100 Mg Tab, 100 MG PO QHS Sitagliptin Phosphate (Januvia) 100 Mg Tablet, 100 MG PO DAILY Spironolactone (Spironolactone) 25 Mg Tab, 12.5 MG PO DAILY Warfarin Sodium (Warfarin Sodium) 3 Mg Tab, 3 MG PO 5XW MON-FRI, QHS Warfarin Sodium (Warfarin Sodium) 4 Mg Tablet, 2 MG PO 2XW SAT, SUN. QHS Miscellaneous Medications [Patient Comment] PATIENT UNSURE OF DOSING OF WARFARIN (WHAT DOSE ON WHAT DAYS). WILL CONFIRM WITH DOCTOR AND/OR PHARMACY IN THE MORNING Allergies Coded Allergies: SEAFOOD (Verified Allergy, Severe, 05/25/18) Throat swelling Penicillins (Verified Allergy, Unknown, 05/25/18) A-FIB/CHADSVASC A-FIB History Current/History of A-Fib/PAF?: Yes Current PO Anticoag Therapy: Yes GME ATTESTATION GME ATTESTATION My faculty preceptor for this patient encounter was physically present during the encounter and was fully available. All aspects of the patient interview, examination, medical decision making process, and medical care plan development were reviewed and approved by the faculty preceptor. The faculty preceptor is aware and concurs with the plan as stated in the body of this note and will attest to such by his/her cosignature. ATTENDING NOTE I have independently interviewed and examined the patient, and agree with the physical findings, assessment and management plan as documented by my Resident Physician. The patient's questions and concerns have been satisfactorily addressed, and patient was encouraged to contact our office at [phone] for any new additional questions. ANA THORNTON DO Dec 18, 2019 22:01 ANJELICA DAY MD Dec 19, 2019 06:05
[2019-12-18 22:30] VITALS: BP 148/80
[2019-12-18] MEDS: LOSARTAN 25 MG TAB PO SCH (22:57)
[2019-12-18] MEDS: METOPROLOL TARTRATE 100 MG TAB PO SCH (22:58)
[2019-12-19] VITALS (8 sets, daily range): BP systolic 119–157; BP diastolic 60–87; O2SAT 95–97
[2019-12-19 08:05] LABS: APPEARANCE, URINE HAZY (CLEAR); BACTERIA, URINE AUTO NEGATIVE (NEGATIVE); BILIRUBIN, URINE AUTO NEGATIVE (NEGATIVE); BLOOD, URINE BLOOD NEGATIVE (NEGATIVE); COLOR, URINE YELLOW (YELLOW); GLUCOSE, URINE (UA) AUTO NEGATIVE (NEGATIVE); KETONE, URINE AUTO NEGATIVE (NEGATIVE); LEUKOCYTE ESTERASE, URINE AUTO NEGATIVE (NEGATIVE); MUCUS, URINE SMALL (NEGATIVE); NITRITE, URINE AUTO NEGATIVE (NEGATIVE); PROTEIN, URINE AUTO 1+ mg/dL (NEGATIVE); RBC, URINE AUTO 6 /HPF (0-3); SPECIFIC GRAVITY URINE AUTO 1.014 (1.002-1.035); SQUAMOUS EPITHELIAL CELL UR AU 4 /HPF (0-6); WBC, URINE AUTO 1 /HPF (0-3)
[2019-12-19 08:12] LABS: INR 1.73; PROTHROMBIN TIME 20.6 SECONDS (12.5-14.3)
[2019-12-19 08:14] LABS: D-DIMER QUANT 436.46 ng/ml (<500)
[2019-12-19 08:32] LABS: C REACTIVE PROTEIN QUANTITATIV 7.26 MG/DL (0.00-0.30); TROPONIN I < 0.02 NG/ML (< 0.10)
[2019-12-19] MEDS ORDERED: FLUBLOK(EGG FREE)(QUAD)INFLUENZA VACC 0.5ML SYRINGE 18YRS & OLDER IM ONE (09:00)
[2019-12-19] MEDS: FUROSEMIDE 20 MG TAB PO SCH (10:06)
[2019-12-19] MEDS: VITAMIN D 1,000 INTERNATIONAL UNITS TABLET PO SCH (10:08)
[2019-12-19] MEDS: SITagliptin 50 MG TAB (JANUVIA) PO SCH (10:08)
[2019-12-19] MEDS: METOPROLOL TARTRATE 100 MG TAB PO SCH ×2 (10:08→20:10)
[2019-12-19 12:02] LABS: HEPATITIS B SURFACE ANTIGEN NEGATIVE (NEGATIVE)
[2019-12-19 12:31] LABS: HIV 1&2 SCREEN CENTAUR NEGATIVE (NEGATIVE)
[2019-12-19] MEDS: SPIRONOLACTONE 12.5MG PER 1/2 TABLET PO SCH (14:18)
[2019-12-19] MEDS: ACETAMINOPHEN TAB 650MG DOSE (2X325MG) PO PRN (14:18)
--- NOTE | 2019-12-19 14:49 | IPNPDOC ---
Date Seen The patient was seen on 12/19/19. Progress Note SUBJECTIVE: no acute events overnight per nursing. HR controlled with PO meds. Pateint saturating at 94% on RA. No increased O2 requirement. Patient states that her SOB has improved, as well as frequency of palpitations. OBJECTIVE PHYSICAL EXAMINATION: VITAL SIGNS: BP 143/91. HR 102 RR 24. SpO2 94% on RA. Patient was not examined to minimize risk of COVID-19 transmission. LABORATORY DATA, IMAGING STUDIES, MICROBIOLOGY: Please see below. DVT prophylaxis ordered?: Y ASSESSMENT AND PLAN:74 yo F with a hx of chronic atrial fibrillation, diastolic congestive heart failure and HTN, presented to [facility] with body aches, and dyspnea, found to in afib with RVR and covid-19 positive. PROBLEMS: # Atrial fibrillation with RVR: HR in ED 120. Rate controlled throughout the day. C/w metoprolol 200 qam, 100 qpm. Cardizem 60 mg PO TID. Possibly responsible for acute dyspnea, which has improved with HR control. HR trending in 90s. AC with warfarin. INR subtherapeutic, will trend. Home dose resumed. #COVID-19 infection: Presently saturating 96% on 2L via NC. Was 96% on RA bu desaturated when walked to bathroom. CXR was without infiltrates on admission. Febrile during day, Tmax 102.5, responded to tylenol. Given her co-morbidities will start dexamethasone 6 mg PO daily and remdesevir as she requires low flow O2 supplementation. Liver enzymes and Cr wnl. Trend CK, D-dimer, INR, CRP. #Diastolic congestive heart failure: c/w home meds. #HTN: cont home meds. #Skin lesion: see on center of upper back per H&P. Dermatology outpatient. DVT ppx: AC with warfarin. VS, I&O, 24H, Fishbone Vital Signs/I&O Vital Signs Date Time Temp Pulse Resp B/P (MAP) Pulse Ox O2 Delivery O2 Flow Rate FiO2 12/19/19 10:07 111 143/81 12/19/19 08:00 101.2 25 94 Room Air 12/19/19 04:15 2.0 I&O- Last 24 Hours up to 6 AM 12/19/19 06:00 Intake Total 270 ml Balance 270 ml Laboratory Data 24H LABS Laboratory Tests 2 12/18/19 17:59: Prothrombin Time 21.7H, Prothromb Time International Ratio 1.84, Activated Partial Thromboplast Time 41.7H, Fibrinogen 471H, D-Dimer, Quantitative 436.46 12/18/19 18:00: Immature Granulocyte % (Auto) 0.7, Neutrophils (%) (Auto) 77.2H, Lymphocytes (%) (Auto) 12.1L, Monocytes (%) (Auto) 9.8H, Eosinophils (%) (Auto) 0.0, Basophils (%) (Auto) 0.2, Neutrophils # (Auto) 7.0, Lymphocytes # (Auto) 1.1L, Monocytes # (Auto) 0.9H, Eosinophils # (Auto) 0.0, Basophils # (Auto) 0.0, Nucleated Red Blood Cells % (auto) 0.0, Anion Gap 7L, Glomerular Filtration Rate > 60.0, Calcium Level 9.2, Ferritin 201, Total Bilirubin 0.7, Direct Bilirubin 0.3H, Aspartate Amino Transf (AST/SGOT) 22, Alanine Aminotransferase (ALT/SGPT) 29, Alkaline Phosphatase 101, Lactate Dehydrogenase 221, Total Creatine Kinase 40, Creatine Kinase MB < 1.0, Creatine Kinase MB Relative Index 2.50, Troponin I < 0.02, C-Reactive Protein, Quantitative 4.11H, KC-Pzs-D-Type Natriuretic Peptide 2260H, Total Protein 7.8, Albumin 4.1, Albumin/Globulin Ratio 1.1L, Triglycerides Level 76, Lipase 77, Procalcitonin <0.05, Thyroid Stimulating Hormone (TSH) 0.451 12/18/19 20:43: Lactic Acid Level 1.1 12/18/19 21:00: Prothrombin Time 21.2H, Prothromb Time International Ratio 1.79, Activated Partial Thromboplast Time 38.6H, Total Bilirubin 0.7, Direct Bilirubin 0.3H, Asp artate Amino Transf (AST/SGOT) 26, Alanine Aminotransferase (ALT/SGPT) 30, Alkaline Phosphatase 102, Total Creatine Kinase 43, Creatine Kinase MB < 1.0, Creatine Kinase MB Relative Index 2.33, Troponin I < 0.02, Total Protein 7.8, Albumin 3.8, Albumin/Globulin Ratio 1.0L 12/19/19 07:41: Prothrombin Time 20.6H, Prothromb Time International Ratio 1.73, D-Dimer, Quantitative 436.46, Urine Color YELLOW, Urine Appearance HAZY, Urine pH 7.0, Urine Specific [place] 1.014, Urine Protein 1+H, Urine Glucose (Auto)(UA) NEGATIVE, Urine Ketones (Auto) NEGATIVE, Urine Blood NEGATIVE, Urine Nitrite NEGATIVE, Urine Bilirubin NEGATIVE, Urine Urobilinogen 4.0H, Urine Leukocyte Esterase (Auto) NEGATIVE, Urine WBC (Auto) 1, Urine RBC (Auto) 6H, Urine Hyaline Casts (Auto) 0, Urine Bacteria (Auto) NEGATIVE, Urine Squamous Epithelial Cells 4, Urine Mucus (Auto) SMALL, Urine Sperm (Auto) , Troponin I < 0.02, C-Reactive Protein, Quantitative 7.26H, Hepatitis B Surface Antigen NEGATIVE, HIV Antigen/Antibody Combo Qual NEGATIVE CBC/BMP Laboratory Tests 12/18/19 18:00 Microbiology Microbiology 12/18/19 Respiratory Virus Panel (PCR) ([facility]) - Final, Complete SARS-CoV-2 (COVID 19) 12/18/19 Blood Culture, Received Pending 12/18/19 Blood Culture, Received Pending SEBAS PAYAN MD Dec 19, 2019 14:49
[2019-12-19] MEDS ORDERED: WARFARIN SOD 4MG TAB PO SCH (17:00)
[2019-12-19] MEDS ORDERED: WARFARIN SOD 3MG TAB PO SCH (17:00)
[2019-12-19] MEDS ORDERED: REMDESIVIR (INVESTIGATIONAL) 200 MG in NS 210 ML IV ONE (18:00)
[2019-12-19] MEDS: dexameTHASONE 4 MG/ML 1ML VIAL (J1100 PER 1MG) IV SCH ×2 (18:35→19:36)
--- NOTE | 2019-12-19 18:54 | ECGEPIP ---
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
[2019-12-19] MEDS ORDERED: SODIUM CHLORIDE 0.9% INJ 10 ML SYR IV ONE (19:00)
[2019-12-19] MEDS: LOSARTAN 25 MG TAB PO SCH (20:10)
[2019-12-20] VITALS (13 sets, daily range): BP systolic 122–133; BP diastolic 64–84; O2SAT 93–99
[2019-12-20 09:26] LABS: BASO % 0.3 % (0.0-1.0); HEMATOCRIT 40.1 % (36.0-47.0); HEMOGLOBIN 13.2 g/dl (12.0-15.5); LYMPH # 0.8 10^3/uL (1.5-5.0); LYMPH % 24.1 % (24.0-44.0); MEAN CORPUSCULAR HGB CONC 32.9 g/dl (32.0-36.5); MEAN CORPUSCULAR VOLUME 91.1 fl (80.0-96.0); MONO # 0.3 10^3/uL (0.0-0.8); MONO % 8.4 % (0.0-5.0); NEUTROPHILS # 2.3 10^3/uL (1.5-8.5); NEUTROPHILS % 66.9 % (36.0-66.0); PLATELET COUNT, AUTOMATED 157 10^3/uL (150-450); WHITE BLOOD COUNT 3.5 10^3/uL (4.0-10.0)
[2019-12-20 09:37] LABS: INR 1.84; PROTHROMBIN TIME 21.7 SECONDS (12.5-14.3)
[2019-12-20 09:40] LABS: D-DIMER QUANT 461.6 ng/ml (<500)
[2019-12-20 09:51] LABS: ALBUMIN 3.5 GM/DL (3.2-5.2); ALT/SGPT 31 U/L (12-78); BILIRUBIN,TOTAL 0.9 MG/DL (0.2-1.0); BLOOD UREA NITROGEN 14 MG/DL (7-18); CARBON DIOXIDE LEVEL 26 MEQ/L (21-32); CHLORIDE LEVEL 105 MEQ/L (98-107); CPK CREATINE PHOSPHOKINASE 138 U/L (26-192); CREATININE FOR GFR 0.75 MG/DL (0.55-1.30); FERRITIN 309 NG/ML (8-252); GLOMERULAR FILTRATION RATE > 60.0 (>39); GLUCOSE, FASTING 204 MG/DL (70-100); MAGNESIUM LEVEL 2.2 MG/DL (1.8-2.4); POTASSIUM SERUM 3.9 MEQ/L (3.5-5.1); SODIUM LEVEL 137 MEQ/L (136-145); TOTAL PROTEIN 7.3 GM/DL (6.4-8.2); TROPONIN I < 0.02 NG/ML (< 0.10)
[2019-12-20] MEDS: dexameTHASONE 4 MG/ML 1ML VIAL (J1100 PER 1MG) IV SCH (09:52)
[2019-12-20] MEDS: SITagliptin 50 MG TAB (JANUVIA) PO SCH (09:53)
[2019-12-20] MEDS: METOPROLOL TARTRATE 100 MG TAB PO SCH (09:57)
[2019-12-20] MEDS: FUROSEMIDE 20 MG TAB PO SCH (09:58)
[2019-12-20] MEDS: VITAMIN D 1,000 INTERNATIONAL UNITS TABLET PO SCH (09:58)
[2019-12-20] MEDS: SPIRONOLACTONE 12.5MG PER 1/2 TABLET PO SCH (09:59)
[2019-12-20] MEDS ORDERED: JANT4TAB PO (12:35)
[2019-12-20] MEDS ORDERED: JANT3TAB PO (12:35)
[2019-12-20] MEDS ORDERED: DEXA6TAB PO (12:35)
[2019-12-20] MEDS ORDERED: ACET1TAB55 PO (12:35)
--- NOTE | 2019-12-20 12:57 | DS.PDOC ---
Discharge Summary General Date of Admission Dec 18, 2019 at 20:31 Date of Discharge 12/20/19 Attending Physician: SEBAS PAYAN MD Discharge Summary PROCEDURES PERFORMED DURING STAY: [None]. ADMITTING DIAGNOSES: Chronic atrial fibrillation with RVR Covid-19 infection HTN Diastolic congestive heart failure Skin lesions suspicious for malignancy. DISCHARGE DIAGNOSES: Chronic atrial fibrillation with RVR Covid-19 infection HTN Diastolic congestive heart failure Skin lesions suspicious for malignancy. COMPLICATIONS/CHIEF COMPLAINT: Atrial Fib With Rvr,Covid 19,Hypertensive Urgency,. HISTORY OF PRESENT ILLNESS: Patient is a 74-year-old female who presented for her history of off-and-on body aches. Patient states that she has been having pain all throughout her body that he treated with Tylenol however, it does return. Patient is unsure whether not she had a fever with this. Patient states that she has been feeling some difficulty breathing although she does have a history of lung disease which causes her to feel short of breath. Patient says that her shortness of breath is slightly worse than her usual baseline. Patient also states that she's been having some abdominal and chest pain. Both these pains are treated with Tylenol but soon returned. In the emergency department, patient was found to have atrial fibrillation with a rapid ventricular rate, high blood pressure, and tested positive for COVID-19. Patient is unsure where she contracted the virus. Patient denies having any productive cough with says she has been coughing slightly more than usual and is been taking a cough syrup which helped a little bit. HOSPITAL COURSE: # Atrial fibrillation with RVR: HR in ED 120. Rate controlled throughout the day. C/w metoprolol 200 qam, 100 qpm. Cardizem 60 mg PO TID. Possibly responsible for acute dyspnea, which has improved with HR control. HR trending in 90s. AC with warfarin. INR subtherapeutic, home dose regimen increased by 10%. See instructions below. Repeat INR outpatient 2-3 days. #COVID-19 infection: On admission, patient was saturating 96% on 2 L via nasal cannula and was seen to be 96% on room air, but then subsequently desaturated when walked to the bathroom. Patient was admitted for treatment of covid 19 infection due to desaturation. Chest x-ray did not show infiltrates on admission. Patient did have some fevers during the day. MAXIMUM TEMPERATURE 102.5, which responded to Tylenol. Patient was started on dexamethasone 6 mg daily , as well as remdesivir (1 day, 200 mg) fo. On day 3 of admission, patient was saturating 96% on room air. She was afebrile. Heart rate was controlled with her by mouth home regimen. Shortness of breath improved. Advised to self isolate for 14 days. #Diastolic congestive heart failure: c/w home meds. #HTN: cont home meds. #Skin lesion: see on center of upper back per H&P. Dermatology outpatient. DISCHARGE MEDICATIONS: Please see below. ALLERGIES: Please see below. PHYSICAL EXAMINATION ON DISCHARGE: VITAL SIGNS: Please see below. General: NAD, comfortable, on room air saturating at 96% at rest Extensive physical examination performed to minimize risk of Covid transmission LABORATORY DATA: Please see below. IMAGING: CXR 12/18/19: 1. Cardiomegaly. 2. No acute infiltrates PROGNOSIS: good ACTIVITY: [As tolerated]. DIET: 2G sodium diet DISCHARGE PLAN: home, instructed to quarantine at home for 14 days. Continue dexamethasone for 7 days. Public health informed. DISCHARGE INSTRUCTIONS: 1. Please follow-up with your primary care doctor within 1 week 2. Please make sure to self isolate at home for the next 14 days, with with compliance Public health guidelines given positive covid 19 test 3. Please taking medications as prescribed. Is complete 7 additional days of dexamethasone 6 mg per day. - your warfarin regimen was changed, and weekly total dosage increased by 10%. - new warfarin schedule: 4 mg SunWedThurSat at 1700; 3 mg MonTueFri at 1700 4. If you develop worsening shortness of breath, chest pain, palpitations, fatigue, fall, please call 911 or return to the nearest emergency room ITEMS TO FOLLOWUP ON ON OUTPATIENT: INR repeat 2-3 days. DISCHARGE CONDITION: Stable TIME SPENT ON DISCHARGE: 35 minutes Vital Signs/I&Os Vital Signs Date Time Temp Pulse Resp B/P (MAP) Pulse Ox O2 Delivery O2 Flow Rate FiO2 12/20/19 12:00 97.7 83 19 126/80 (95) 93 Room Air 12/20/19 12:00 0.0 I&O- Last 24 Hours up to 6 AM 12/20/19 06:00 Intake Total 1125 ml Output Total 500 ml Balance 625 ml Laboratory Data Labs 24H Laboratory Tests 2 12/19/19 20:26: Troponin I < 0.02 12/20/19 08:57: Troponin I < 0.02, Immature Granulocyte % (Auto) 0.3, Neutrophils (%) (Auto) 66.9H, Lymphocytes (%) (Auto) 24.1, Monocytes (%) (Auto) 8.4H, Eosinophils (%) (Auto) 0.0, Basophils (%) (Auto) 0.3, Neutrophils # (Auto) 2.3, Lymphocytes # (Auto) 0.8L, Monocytes # (Auto) 0.3, Eosinophils # (Auto) 0.0, Basophils # (Auto) 0.0, Nucleated Red Blood Cells % (auto) 0.0, Prothrombin Time 21.7H, Prothromb Time International Ratio 1.84, D-Dimer, Quantitative 461.60, Anion Gap 6L, Glomerular Filtration Rate > 60.0, Calcium Level 9.0, Magnesium Level 2.2, Ferritin 309H, Total Bilirubin 0.9, Aspartate Amino Transf (AST/SGOT) 23, Alanine Aminotransferase (ALT/SGPT) 31, Alkaline Phosphatase 91, Total Creatine Kinase 138#, C-Reactive Protein, Quantitative 16.80H, Total Protein 7.3, Albumin 3.5, Albumin/Globulin Ratio 0.9L CBC/BMP Laboratory Tests 12/20/19 08:57 Microbiology Microbiology 12/18/19 Respiratory Virus Panel (PCR) ([facility]) - Final, Complete SARS-CoV-2 (COVID 19) 12/18/19 Blood Culture - Preliminary, Resulted No growth after 24 hours . All specim... 12/18/19 Blood Culture - Preliminary, Resulted No growth after 24 hours . All specim... Discharge Medications Scheduled Cholecalciferol (Vitamin D3) (Vitamin D3) 1,000 Unit Tablet, 1,000 UNITS PO DAILY, (Reported) Dexamethasone (Dexamethasone) 6 Mg Tablet, 6 MG PO DAILY Diltiazem Hcl (Cardizem) 60 Mg Tab, 60 MG PO TID, (Reported) Furosemide (Furosemide) 40 Mg Tablet, 60 MG PO DAILY, (Reported) Levothyroxine Sodium (Levothyroxine Sodium) 175 Mcg Tab, 175 MCG PO DAILY, (Reported) Losartan Potassium (Losartan Potassium) 25 Mg Tab, 25 MG PO QHS, (Reported) Metoprolol Tartrate (Metoprolol Tartrate) 100 Mg Tab, 200 MG PO DAILY, (Reported) Metoprolol Tartrate (Metoprolol Tartrate) 100 Mg Tab, 100 MG PO QHS, (Reported) Sitagliptin Phosphate (Januvia) 100 Mg Tablet, 100 MG PO DAILY, (Reported) Spironolactone (Spironolactone) 25 Mg Tab, 12.5 MG PO DAILY, (Reported) Warfarin Sodium (Warfarin Sodium) 3 Mg Tab, 3 MG PO ASDIRECTED, (Reported) TAKES 3MG FOR 2 DAYS THEN 4MG FOR 1 DAY THEN REPEAT Warfarin Sodium (Warfarin Sodium) 4 Mg Tablet, 4 MG PO ASDIRECTED, (Reported) TAKE 3 MG FOR 2 DAYS THEN 4MG FOR 1 DAY THEN REPEAT Warfarin Sodium (Jantoven) 4 Mg Tablet, 4 MG PO SunWedThurSat@1700 Warfarin Sodium (Jantoven) 3 Mg Tablet, 3 MG PO MonTueFri@1700 Scheduled PRN Acetaminophen (Acetaminophen) 325 Mg Tablet, 650 MG PO Q4HP PRN for PAIN OR FEVER Allergies Coded Allergies: SEAFOOD (Verified Allergy, Severe, 05/25/18) Throat swelling Penicillins (Verified Allergy, Unknown, 05/25/18) SEBAS PAYAN MD Dec 20, 2019 12:57
--- NOTE | 2019-12-20 15:24 | ECGEPIP ---
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
[2019-12-20] MEDS ORDERED: WARFARIN SOD 3MG TAB PO SCH (17:00)
[2019-12-20] MEDS ORDERED: REMDESIVIR (INVESTIGATIONAL) 100 MG in NS 230 ML IV SCH (18:00)
[2019-12-20] MEDS ORDERED: SODIUM CHLORIDE 0.9% INJ 10 ML SYR IV SCH (19:00)
[2019-12-21] MEDS ORDERED: WARFARIN SOD 2MG TAB PO SCH (17:00)
== END 2019-12-20 16:05 | disposition home or self-care (01) | DRG 178 ==
LOC: M ED 17:28 → M ED INP 20:31 → EEVIPCON 20:31 → ENRESERV 20:57 → M 4MAIN 22:16
PROVIDERS: ADMIT General Practice; ATTEND Family Medicine
DX: U07.1 COVID-19 (principal); I50.32 Chronic diastolic (congestive) heart failure; I48.20 Chronic atrial fibrillation, unspecified; I11.0 Hypertensive heart disease with heart failure; L98.9 Disorder of the skin and subcutaneous tissue, unspecified; Z90.49 Acquired absence of other specified parts of digestive tract; Z79.01 Long term (current) use of anticoagulants; Z79.899 Other long term (current) drug therapy; Z66 Do not resuscitate; Z88.0 Allergy status to penicillin; Z91.013 Allergy to seafood

== ENCOUNTER 2019-12-26 10:46 | Inpatient (IN) | payer MEDICARE ==
[~2019-12-26] VITALS: Ht 175.3 cm; Wt 101.4 kg
[~2019-12-26 10:46] MED LIST changes: +ACET1TAB55 PO; +DEXA6TAB PO; +JANT3TAB PO; +JANT4TAB PO; +JANU100T PO; +PATIENT COMMENT
[2019-12-26 13:24] LABS: BASO # 0.1 10^3/uL (0.0-0.2); BASO % 0.5 % (0.0-1.0); HEMATOCRIT 46.3 % (36.0-47.0); HEMOGLOBIN 15.7 g/dl (12.0-15.5); LYMPH # 0.7 10^3/uL (1.5-5.0); LYMPH % 3.2 % (24.0-44.0); MEAN CORPUSCULAR HEMOGLOBIN 29.9 pg (27.0-33.0); MEAN CORPUSCULAR HGB CONC 33.9 g/dl (32.0-36.5); MEAN CORPUSCULAR VOLUME 88.2 fl (80.0-96.0); MONO # 1.5 10^3/uL (0.0-0.8); MONO % 6.8 % (0.0-5.0); NEUTROPHILS # 18.6 10^3/uL (1.5-8.5); NEUTROPHILS % 86.4 % (36.0-66.0); PLATELET COUNT, AUTOMATED 228 10^3/uL (150-450); RED BLOOD COUNT 5.25 10^6/uL (4.00-5.40); WHITE BLOOD COUNT 21.5 10^3/uL (4.0-10.0)
[2019-12-26 13:34] LABS: PROTHROMBIN TIME 59.7 SECONDS (12.5-14.3)
[2019-12-26 13:36] LABS: D-DIMER QUANT 830.13 ng/ml (<500)
[2019-12-26 13:38] LABS: INR 6.67
--- NOTE | 2019-12-26 13:46 | REP ---
INDICATION: Coronavirus workup. COMPARISON: 12/18/2019 FINDINGS: The technique utilized in obtaining the radiograph has magnified the cardiac silhouette and accentuated the interstitial markings. There is cardiomegaly accentuated by technique status quo. There is a new patchy opacity in the right lower lobe. The lung bailey are otherwise stable in appearance. There is no change in the osseous structures. IMPRESSION: Cardiomegaly and new right lower lobe opacity suspicious for pneumonia or possibly asymmetric pulmonary edema. <Electronically signed by Alessandro Millard > 12/26/19 [id number]
[2019-12-26 13:49] LABS: ALBUMIN 3.3 GM/DL (3.2-5.2); ALT/SGPT 42 U/L (12-78); BILIRUBIN,TOTAL 0.9 MG/DL (0.2-1.0); BLOOD UREA NITROGEN 30 MG/DL (7-18); CALCIUM LEVEL 9.3 MG/DL (8.8-10.2); CARBON DIOXIDE LEVEL 25 MEQ/L (21-32); CHLORIDE LEVEL 103 MEQ/L (98-107); CK-MB VALUE MASS < 1.0 NG/ML (<3.6); CPK CREATINE PHOSPHOKINASE 53 U/L (26-192); CREATININE FOR GFR 0.89 MG/DL (0.55-1.30); FERRITIN 601 NG/ML (8-252); GLOMERULAR FILTRATION RATE > 60.0 (>39); GLUCOSE, FASTING 384 MG/DL (70-100); LDH LACTATE DEHYDROGENASE 287 U/L (84-246); MB/CK RELATIVE INDEX 1.89 (< OR =4); POTASSIUM SERUM 4.5 MEQ/L (3.5-5.1); SODIUM LEVEL 135 MEQ/L (136-145); TOTAL PROTEIN 7.5 GM/DL (6.4-8.2); TROPONIN I < 0.02 NG/ML (< 0.10)
[2019-12-26] MEDS ORDERED: WARF-58 PO (14:07)
[2019-12-26] MEDS ORDERED: WARF-20 PO (14:07)
[2019-12-26] MEDS ORDERED: DEXA6TAB PO (14:07)
[2019-12-26] MEDS ORDERED: ACET-908 PO (14:07)
--- NOTE | 2019-12-26 14:57 | HPEPDOC ---
[facility] Medical History & Physical Date of Admission Dec 26, 2019 Date of Service: Dec 26, 2019 History and Physical CHIEF COMPLAINT: Shortness of breath HISTORY OF PRESENT ILLNESS: 74-year-old female past medical history of A. jourdan recently admitted for Covid and discharged home last week comes back with tachypnea and shortness of breath found to have a new pneumonia but is saturating well on room air. Admitted for observation for treatment of pneumonia. Patient reluctant to be admitted to the hospital and more inclined to go home but agreed to stay for overnight admission. She denies any fevers or chills no cough or sputum production and no chest pain. However she does have some mild shortness of breath increased over the past 2 days. She is saturating well on room air. Patient tells me that at time of discharge last week she was feeling better however she was unable to see her primary care doctor and thus was unable to adjust her Coumadin dosing and check her INR. I informed her that her INR is supratherapeutic at this time. I told her that we will hold Coumadin today and at time of discharge she must see her primary care doctor to titrate her Coumadin to therapeutic levels. In the ED chest x-ray is suggestive of new right lower lobe pneumonia that has developed since time of discharge. PAST MEDICAL HISTORY: Hypertension Atrial fibrillation on chronic warfarin Congestive heart failure PAST SURGICAL HISTORY: Appendectomy Tonsillectomy Cholecystectomy Thyroidectomy SOCIAL HISTORY: Denies alcohol use Denies tobacco use Denies illicit drug use Patient lives at home with her FAMILY HISTORY: Family history of CAD ALLERGIES: Please see below. REVIEW OF SYSTEMS: 10 point review of systems completed and negative except as in HPI HOME MEDICATIONS: Please see below. PHYSICAL EXAMINATION: Constitutional: Awake and alert, in no apparent distress ENT: Sclera are clear. Mucosa is moist. Respiratory: Lungs CTA bilaterally. No respiratory distress. No use of accessory muscles. No wheezing or crackles appreciated. Saturating at 94% on room air. Cardiovascular: Irregular heart rate Gastrointestinal: Abdomen is soft, non distended, non tender, BS present. Musculoskeletal: No edema. Neurologic: No focal neurological deficit. Mental Status: A&O x3, normal affect Skin: Mole on the back between scapula in the midline different appearing from other moles on her back LABORATORY DATA: See below. IMAGING: Chest x-ray reviewed suggestive of new right lower lobe pneumonia MICROBIOLOGY: Please see below. ASSESSMENT/PLAN 74-year-old female past medical history of A. fib recently admitted for Covid and discharged home last week comes back with tachypnea and shortness of breath found to have a new pneumonia but is saturating well on room air. Admitted for observation for treatment of pneumonia. # COVID associated PNA: IV levaqin daily (allergic to PCN). BCx. CXR showing new R lower lobar PNA. IVFs. # Recent COVID-19 infection: Recently admitted 12/17-12/19. Patient was given ramdasivir and dexamethasone. Saturating well on room air. Maintain saturation above 88%. Continuous puls ox. Trend covid inflammatory markers. D dimer, ferritin elevated on admission. # Elevated lactate: meets SIRS tachypnea, elevated WBC although the elevated WBC is likely from her recent steroid use. IVFs gentle 1/2 maintenance due to covid want to keep on sand drier side. IV levaqin daily. Repeat lactate. # Atrial fibrillation with RVR: Rate controlled. On warfarin supratheraputic, see below. Continue meoprolol, Cardizem. Tele. # Elevated INR: Patient didnt follow up as instructed with PCP to adjust warfarin upon discharge as instructed. INR 6.6 on admission. Hold warfarin for 2 days then resume prior dose of warfarin prior to latest increase. Back to 3mg MTF 2mg WTSS. Must follow up upon DC with PCP to titrate warfarin. Daily INR check. # Hyperglycemia: likely from recent steroid course. ISS. Acchecks with meals. Hypoglycemic precautions. # Hypothyroidism: Resume Synthroid #Diastolic congestive heart failure: c/w home meds. #HTN: cont home meds. #Skin lesion: Patient advised to follow up outpatient with dermatology in her primary care doctor. This was reemphasized at this visit. #DVT prophylaxis: On warfarin A Yousef Hospitalist Vital Signs Vital Signs Date Time Temp Pulse Resp B/P (MAP) Pulse Ox O2 Delivery O2 Flow Rate FiO2 12/26/19 11:27 Room Air 12/26/19 10:54 99.1 72 24 129/88 (102) 93 Laboratory Data Labs 24H Laboratory Tests 2 12/26/19 13:08: Immature Granulocyte % (Auto) 3.1H, Neutrophils (%) (Auto) 86.4H, Lymphocytes (%) (Auto) 3.2L, Monocytes (%) (Auto) 6.8H, Eosinophils (%) (Auto) 0.0, Basophils (%) (Auto) 0.5, Neutrophils # (Auto) 18.6H, Lymphocytes # (Auto) 0.7L, Monocytes # (Auto) 1.5H, Eosinophils # (Auto) 0.0, Basophils # (Auto) 0.1, Nucleated Red Blood Cells % (auto) 0.0, Prothrombin Time 59.7H, Prothromb Time International Ratio 6.67*H, D-Dimer, Quantitative 830.13H, Anion Gap 7L, Glomerular Filtration Rate > 60.0, Lactic Acid Level 2.9*H, Calcium Level 9.3, Ferritin 601H, Total Bilirubin 0.9, Aspartate Amino Transf (AST/SGOT) 18, Alanine Aminotransferase (ALT/SGPT) 42, Alkaline Phosphatase 88, Lactate Dehydrogenase 287H, Total Creatine Kinase 53, Creatine Kinase MB < 1.0, Creatine Kinase MB Relative Index 1.89, Troponin I < 0.02, Total Protein 7.5, Albumin 3.3, Albumin/Globulin Ratio 0.8L CBC/BMP Laboratory Tests 12/26/19 13:08 Home Medications Scheduled Cholecalciferol (Vitamin D3) (Vitamin D3) 1,000 Unit Tablet, 1,000 UNITS PO DAILY Diltiazem HCl (Diltiazem HCl) 30 Mg Tablet, 90 MG PO TID Furosemide (Furosemide) 40 Mg Tablet, 60 MG PO DAILY Levofloxacin (Levofloxacin) 750 Mg Tablet, 1 TAB PO DAILY Levothyroxine Sodium (Levothyroxine Sodium) 175 Mcg Tab, 175 MCG PO DAILY Linezolid (Linezolid) 600 Mg Tablet, 600 MG PO BID Losartan Potassium (Losartan Potassium) 25 Mg Tab, 25 MG PO QHS Metoprolol Tartrate (Metoprolol Tartrate) 100 Mg Tab, 200 MG PO DAILY Metoprolol Tartrate (Metoprolol Tartrate) 100 Mg Tab, 100 MG PO QHS Prednisone (Prednisone) 50 Mg Tablet, 50 MG PO DAILY Sitagliptin Phosphate (Januvia) 100 Mg Tablet, 100 MG PO QPM DINNER TIME Spironolactone (Spironolactone) 25 Mg Tab, 12.5 MG PO DAILY Warfarin Sodium (Warfarin Sodium) 3 Mg Tablet, 3 MG PO 3XW MON/TUE/FRI AT 1700 Warfarin Sodium (Warfarin Sodium) 2 Mg Tablet, 2 MG PO 4XWK SUN/WED/THURS/SAT AT 1700 Scheduled PRN Acetaminophen (Acetaminophen) 325 Mg Tablet, 650 MG PO Q4H PRN for PAIN / FEVER Albuterol Sulfate (Proair Hfa) 8.5 Gm Hfa.aer.ad, 2 PUFF INH Q4-6HP PRN for wheezing Allergies Coded Allergies: Penicillins (Verified Allergy, Severe, HIVES,ANAPHYLAXIS, 12/26/19) SEAFOOD (Verified Allergy, Severe, THROAT SWELLING, 12/26/19) A-FIB/CHADSVASC A-FIB History Current/History of A-Fib/PAF?: Yes Current PO Anticoag Therapy: Yes LIZETTE PIERRE MD Dec 26, 2019 14:57
[2019-12-26] MEDS ORDERED: DEXTROSE 50% 50 ML SYRINGE IV PRN (17:00)
[2019-12-26] MEDS ORDERED: GLUCAGON INJ 1MG VIAL SC PRN (17:00)
[2019-12-26] MEDS ORDERED: GLUCOSE 4GM CHEW TABLET PO PRN (17:00)
[2019-12-26] MEDS: NS 1,000 ML IV SCH (17:24)
[2019-12-26] MEDS: LevoFLOXacin IV 750 MG in IV 1 EA IV SCH (17:30)
[2019-12-26] MEDS: HumaLOG INSULIN (NovoLOG) PER UNIT SC SCH ×2 (18:34→20:25)
[2019-12-26 18:40] VITALS: BP 140/78
[2019-12-26] MEDS: LOSARTAN 25 MG TAB PO SCH (19:34)
[2019-12-26] MEDS: METOPROLOL TARTRATE 100 MG TAB PO SCH (19:35)
[2019-12-26] MEDS: SITagliptin 50 MG TAB (JANUVIA) PO SCH (19:35)
[2019-12-26 20:00] VITALS: BP 146/80; O2SAT 93
[2019-12-26] MEDS: ACETAMINOPHEN TAB 650MG DOSE (2X325MG) PO PRN (22:00)
[2019-12-27] VITALS (7 sets, daily range): BP systolic 107–143; BP diastolic 65–97; O2SAT 92–94
[2019-12-27] MEDS: LEVOTHYROXINE 50MCG TABLET (0.05MG) PO SCH (05:22)
[2019-12-27] MEDS: LEVOTHYROXINE 125MCG TABLET (0.125MG) PO SCH (05:22)
[2019-12-27] MEDS: METOPROLOL TARTRATE 100 MG TAB PO SCH ×2 (08:49→21:24)
[2019-12-27] MEDS: HumaLOG INSULIN (NovoLOG) PER UNIT SC SCH ×4 (08:50→21:23)
[2019-12-27] MEDS: SPIRONOLACTONE 12.5MG PER 1/2 TABLET PO SCH (08:50)
[2019-12-27] MEDS ORDERED: FUROSEMIDE 20 MG TAB PO SCH (09:00)
[2019-12-27] MEDS ORDERED: ENOXAPARIN 40MG/0.4ML SYRINGE (J1650 PER 10MG) SC SCH (09:00)
[2019-12-27 09:22] LABS: BASO # 0.1 10^3/uL (0.0-0.2); BASO % 0.5 % (0.0-1.0); EOS % 0.1 % (0.0-3.0); HEMATOCRIT 47.9 % (36.0-47.0); HEMOGLOBIN 15.6 g/dl (12.0-15.5); LYMPH # 0.8 10^3/uL (1.5-5.0); LYMPH % 5.2 % (24.0-44.0); MEAN CORPUSCULAR HEMOGLOBIN 29.2 pg (27.0-33.0); MEAN CORPUSCULAR HGB CONC 32.6 g/dl (32.0-36.5); MEAN CORPUSCULAR VOLUME 89.5 fl (80.0-96.0); MONO # 1.2 10^3/uL (0.0-0.8); MONO % 7.5 % (0.0-5.0); NEUTROPHILS # 13.1 10^3/uL (1.5-8.5); NEUTROPHILS % 83.4 % (36.0-66.0); PLATELET COUNT, AUTOMATED 201 10^3/uL (150-450); RED BLOOD COUNT 5.35 10^6/uL (4.00-5.40); WHITE BLOOD COUNT 15.7 10^3/uL (4.0-10.0)
[2019-12-27 09:36] LABS: PARTIAL THROMBOPLASTIN TIME 40.8 SECONDS (24.2-38.5)
[2019-12-27 09:56] LABS: ALBUMIN 2.9 GM/DL (3.2-5.2); ALT/SGPT 56 U/L (12-78); BILIRUBIN,DIRECT 0.4 MG/DL (0.0-0.2); BILIRUBIN,TOTAL 1.1 MG/DL (0.2-1.0); BLOOD UREA NITROGEN 26 MG/DL (7-18); CALCIUM LEVEL 8.4 MG/DL (8.8-10.2); CARBON DIOXIDE LEVEL 27 MEQ/L (21-32); CHLORIDE LEVEL 102 MEQ/L (98-107); FERRITIN 794 NG/ML (8-252); GLOMERULAR FILTRATION RATE > 60.0 (>39); GLUCOSE, FASTING 244 MG/DL (70-100); NT-PRO BNP 1344 PG/ML (<125); POTASSIUM SERUM 4.7 MEQ/L (3.5-5.1); SODIUM LEVEL 135 MEQ/L (136-145); TOTAL PROTEIN 6.8 GM/DL (6.4-8.2)
[2019-12-27] MEDS: NS 1,000 ML IV SCH ×2 (10:23→16:58)
[2019-12-27 10:33] LABS: INR 6.01
[2019-12-27] MEDS: ACETAMINOPHEN TAB 650MG DOSE (2X325MG) PO PRN (13:04)
[2019-12-27] MEDS: LevoFLOXacin IV 750 MG in IV 1 EA IV SCH (14:45)
[2019-12-27] MEDS ORDERED: FLUID PLACE HOLDER IV SCH (16:15)
[2019-12-27] MEDS ORDERED: VANCOMYCIN HCL IV SCH (16:15)
--- NOTE | 2019-12-27 16:24 | IPNPDOC ---
Text Note Date of Service The patient was seen on 12/27/19. NOTE Subjective: Patient was seen and examined this morning at bedside. She tells me she's feeling better although she looks more fatigued to me than she did yesterday. She says she has not try to get out of bed but has stood up with the assistance of her nurse to use the bedside commode and she felt okay doing that. Overnight she was using 1 L of oxygen but this morning she was taken off and has been not requiring any oxygen area says her shortness of breath is better than yesterday. I'm told there was no overnight events. Objective: Constitutional: Awake and alert, in no apparent distress. She looks more tired to me today than she did yesterday when I saw her. Respiratory: No respiratory distress. No use of accessory muscles. Saturating at 93% on room air. Mental Status: A&O x3, normal affect Today I limited my physical exam to limit spread of Covid in the hospital and conserve PPE. Assessment/plan: 74-year-old female past medical history of A. fib recently admitted for Covid and discharged home last week comes back with tachypnea and shortness of breath found to have a new pneumonia but is saturating well on room air. Admitted for treatment of pneumonia. # COVID associated PNA: IV levaqin daily. Ordered MRSA screen and added vancomycin 12/26. BCx. CXR showing new R lower lobar PNA. IVFs. Her lactic acid increased to 3.0 today I will cautiously increase the rate of her IV fluids while simultaneously switching her by mouth Lasix to IV today. Leukocytosis is downtrending. # Recent COVID-19 infection: Recently admitted 12/17-12/19. Patient was given ramdasivir and dexamethasone. Saturating well on room air. Maintain saturation above 88%. Continuous puls ox. Trend covid inflammatory markers. D dimer, ferritin elevated on admission. I will place her back on decadron 6mg. # Elevated lactate: meets SIRS tachypnea, elevated WBC although the elevated WBC is likely from her recent steroid use it is now downtrending. Cautious use of IV fluids due to covid want to keep on spray drier side. IV levaqin and vancomycin. Repeat lactate in AM. # Atrial fibrillation with RVR: Rate controlled. On warfarin supratheraputic, see below. Continue meoprolol, Cardizem. Tele. Heart rate tends to increase prior to administration of her scheduled rate control medications after which it becomes more controlled. Increase Cardizem to 90TID. # Elevated INR: Patient didnt follow up as instructed with PCP to adjust warfarin upon discharge as instructed. INR 6.6 on admission. Hold warfarin for 2 days then resume prior dose of warfarin prior to latest increase. Back to 3mg MTF 2mg WTSS. Must follow up upon DC with PCP to titrate warfarin. Daily INR check. # Hyperglycemia: likely from recent steroid course. ISS. Acchecks with meals. Hypoglycemic precautions. # Hypothyroidism: Resume Synthroid #Diastolic congestive heart failure: c/w home meds. #HTN: cont home meds. #Skin lesion: Patient advised to follow up outpatient with dermatology in her primary care doctor. This was reemphasized at this visit. #DVT prophylaxis: On warfarin A Piotr Hospitalist VSAnthony, I+O VSAnthony, I+O Laboratory Tests 12/27/19 08:33 Vital Signs Date Time Temp Pulse Resp B/P (MAP) Pulse Ox O2 Delivery O2 Flow Rate FiO2 12/27/19 14:48 127 110/62 12/27/19 12:00 101.1 18 93 Room Air 12/27/19 08:00 I&O- Last 24 Hours up to 6 AM 12/27/19 06:00 Intake Total 900 ml Output Total 800 ml Balance 100 ml LIZETTE PIERRE MD Dec 27, 2019 16:24
[2019-12-27] MEDS: FUROSEMIDE 20MG/2ML VIAL (J1940) IV SCH (16:59)
[2019-12-27] MEDS: VANCOMYCIN HCL 1,000 MG, VIAL MATE ADAPTER 1 EACH in D5W 250 ML IV SCH (17:03)
[2019-12-27] MEDS: SITagliptin 50 MG TAB (JANUVIA) PO SCH (17:26)
[2019-12-27] MEDS: dexameTHASONE 4 MG/ML 1ML VIAL (J1100 PER 1MG) IV SCH (17:33)
[2019-12-27] MEDS: LOSARTAN 25 MG TAB PO SCH (21:24)
[2019-12-27 22:41] LABS: APPEARANCE, URINE HAZY (CLEAR); BACTERIA, URINE AUTO NEGATIVE (NEGATIVE); BILIRUBIN, URINE AUTO NEGATIVE (NEGATIVE); BLOOD, URINE BLOOD 1+ (NEGATIVE); COLOR, URINE YELLOW (YELLOW); GLUCOSE, URINE (UA) AUTO 2+ mg/dL (NEGATIVE); KETONE, URINE AUTO NEGATIVE (NEGATIVE); LEUKOCYTE ESTERASE, URINE AUTO NEGATIVE (NEGATIVE); MUCUS, URINE SMALL (NEGATIVE); NITRITE, URINE AUTO NEGATIVE (NEGATIVE); PROTEIN, URINE AUTO 1+ mg/dL (NEGATIVE); RBC, URINE AUTO 3 /HPF (0-3); SPECIFIC GRAVITY URINE AUTO 1.023 (1.002-1.035); SQUAMOUS EPITHELIAL CELL UR AU 0 /HPF (0-6); WBC, URINE AUTO 1 /HPF (0-3)
[2019-12-28] VITALS: BP 110/72
[2019-12-28 00:57] VITALS: O2SAT 90
[2019-12-28] MEDS: VANCOMYCIN HCL 1,000 MG, VIAL MATE ADAPTER 1 EACH in D5W 250 ML IV SCH ×2 (01:17→08:47)
[2019-12-28] MEDS: NS 1,000 ML IV SCH (01:18)
[2019-12-28 04:00] VITALS: BP 115/57
[2019-12-28 07:42] VITALS: BP 131/72
[2019-12-28] MEDS: LEVOTHYROXINE 125MCG TABLET (0.125MG) PO SCH (07:42)
[2019-12-28] MEDS: METOPROLOL TARTRATE 100 MG TAB PO SCH (07:43)
[2019-12-28] MEDS: LEVOTHYROXINE 50MCG TABLET (0.05MG) PO SCH (07:43)
[2019-12-28] MEDS: dexameTHASONE 4 MG/ML 1ML VIAL (J1100 PER 1MG) IV SCH (07:44)
[2019-12-28] MEDS: HumaLOG INSULIN (NovoLOG) PER UNIT SC SCH ×2 (07:44→13:17)
[2019-12-28] MEDS: FUROSEMIDE 20MG/2ML VIAL (J1940) IV SCH (07:45)
[2019-12-28 07:54] LABS: BASO # 0.1 10^3/uL (0.0-0.2); BASO % 0.5 % (0.0-1.0); HEMATOCRIT 45.5 % (36.0-47.0); HEMOGLOBIN 15.4 g/dl (12.0-15.5); LYMPH # 0.6 10^3/uL (1.5-5.0); LYMPH % 6.2 % (24.0-44.0); MEAN CORPUSCULAR HGB CONC 33.8 g/dl (32.0-36.5); MEAN CORPUSCULAR VOLUME 88.7 fl (80.0-96.0); MONO # 0.7 10^3/uL (0.0-0.8); MONO % 7.6 % (0.0-5.0); PLATELET COUNT, AUTOMATED 161 10^3/uL (150-450); RED BLOOD COUNT 5.13 10^6/uL (4.00-5.40); WHITE BLOOD COUNT 9.7 10^3/uL (4.0-10.0)
[2019-12-28 08:00] VITALS: BP 131/72
[2019-12-28 08:19] LABS: INR 4.37; PARTIAL THROMBOPLASTIN TIME 38.5 SECONDS (24.2-38.5); PROTHROMBIN TIME 42.8 SECONDS (12.5-14.3)
[2019-12-28 08:22] LABS: ALBUMIN 2.4 GM/DL (3.2-5.2); ALT/SGPT 61 U/L (12-78); BILIRUBIN,DIRECT 0.3 MG/DL (0.0-0.2); BLOOD UREA NITROGEN 28 MG/DL (7-18); CALCIUM LEVEL 8.3 MG/DL (8.8-10.2); CARBON DIOXIDE LEVEL 24 MEQ/L (21-32); CHLORIDE LEVEL 100 MEQ/L (98-107); FERRITIN 1001 NG/ML (8-252); GLOMERULAR FILTRATION RATE > 60.0 (>39); GLUCOSE, FASTING 341 MG/DL (70-100); MAGNESIUM LEVEL 1.9 MG/DL (1.8-2.4); NT-PRO BNP 1071 PG/ML (<125); POTASSIUM SERUM 4.2 MEQ/L (3.5-5.1); SODIUM LEVEL 130 MEQ/L (136-145); TOTAL PROTEIN 6.5 GM/DL (6.4-8.2)
[2019-12-28] MEDS: SPIRONOLACTONE 12.5MG PER 1/2 TABLET PO SCH (11:22)
[2019-12-28 12:00] VITALS: BP 114/58
--- NOTE | 2019-12-28 12:49 | DS.PDOC ---
Discharge Summary General Date of Admission Dec 26, 2019 at 16:06 Date of Discharge 12/28/2019 Discharge Summary PROCEDURES PERFORMED DURING STAY: [None]. ADMITTING DIAGNOSES: 1. Shortness of breath Elevated INR Steroid associated hyperglycemia DISCHARGE DIAGNOSES: 1. COVID associate pneumonia COMPLICATIONS/CHIEF COMPLAINT: Shortness of breath HISTORY OF PRESENT ILLNESS: From H&P: 74-year-old female past medical history of A. fib recently admitted for Covid and discharged home last week comes back with tachypnea and shortness of breath found to have a new pneumonia but is saturating well on room air. Admitted for observation for treatment of pneumonia. Patient reluctant to be admitted to the hospital and more inclined to go home but agreed to stay for overnight admission. She denies any fevers or chills no cough or sputum production and no chest pain. However she does have some mild shortness of breath increased over the past 2 days. She is saturating well on room air. Patient tells me that at time of discharge last week she was feeling better however she was unable to see her primary care doctor and thus was unable to adjust her Coumadin dosing and check her INR. I informed her that her INR is supratherapeutic at this time. I told her that we will hold Coumadin today and at time of discharge she must see her primary care doctor to titrate her Coumadin to therapeutic levels.In the ED chest x-ray is suggestive of new right lower lobe pneumonia that has developed since time of discharge. HOSPITAL COURSE: 74-year-old female past medical history of A. fib recently admitted for Covid and discharged home last week comes back with tachypnea and shortness of breath found to have a new pneumonia but is saturating well on room air. Admitted for treatment of COVID associatred pneumonia. During her hospital stay patient did very well and showed continual improvement. On day of discharge 12/28/2019 patient denied any shortness of breath and was feeling much better. She was ambulating around her room without assistance. And she did not require supplemental oxygen. She was instructed that she will require to continue antibiotics and prednisone by mouth. I also instructed her that she must follow up with her primary care doctor to continue to titrate her warfarin to a therapeutic level because her INR was supratherapeutic when she came in. She verbalized understanding multiple times. I also instructed her to go see a car clerk pullman regarding the skin lesion on the back of her neck. Home health will be arranged prior to discharge. # COVID associated PNA: IV levaqin daily. Ordered MRSA screen and added vancomycin 12/26. Patient will be discharged home on 5 more days of PO levaquin and linezolid. BCx negative at time of discharge. CXR showing new R lower lobar PNA. Her lactic acid normalized today. # Recent COVID-19 infection: Recently admitted 12/17-12/19. Patient was given ramdasivir and dexamethasone. Saturating well on room air. Maintain saturation above 88%. Continuous puls ox. Trend covid inflammatory markers. D dimer, ferritin elevated on admission. Decadron 6mg IV and then prednisone 50mg for 5 days on discharge. # Elevated lactate: Resolved. meets SIRS tachypnea, elevated WBC although the elevated WBC is likely from her recent steroid use it is now normalized at time of discharge. 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 IV levaqin and vancomycin then PO levquin and linezolid at DC. # Atrial fibrillation with RVR: Rate controlled. On warfarin supratheraputic, see below. Continue meoprolol, Cardizem. Tele. Heart rate tends to increase prior to administration of her scheduled rate control medications after which it becomes more controlled. Increased Cardizem to 90TID and HR better controlled 91 at time of DC. # Elevated INR: Patient didnt follow up as instructed with PCP to adjust warfarin upon discharge as instructed. INR 6.6 on admission. Hold warfarin for 2 days then resume prior dose of warfarin prior to latest increase. Back to 3mg MTF 2mg WTSS. Must follow up upon DC with PCP to titrate warfarin. INR was 4.3 at time of discharge and I instructed her to skip todays warfarin and tomorrows and resume her warfarin starting on Monday and make sure to see her PCP within a few days of that to repeat INR. # Hyperglycemia: likely from recent steroid course. ISS. Acchecks with meals. Hypoglycemic precautions. # Hypothyroidism: Resume Synthroid #Diastolic congestive heart failure: c/w home meds. #HTN: cont home meds. #Skin lesion: Patient advised to follow up outpatient with dermatology in her [facility] doctor. This was reemphasized at this visit. DISCHARGE MEDICATIONS: Please see below. ALLERGIES: Please see below. PHYSICAL EXAMINATION ON DISCHARGE: Constitutional: Awake and alert, in no apparent distress. Speaking in full sentences and maintaining good oxygen saturations on room air above 90%. ENT: Sclera are clear. Mucosa is moist. Respiratory: Lungs CTA bilaterally. No respiratory distress. No use of accessory muscles. No wheezing or crackles appreciated. Cardiovascular: Irregular heart rate rate is 92 on exam Gastrointestinal: Abdomen is soft, non distended, non tender, BS present. Musculoskeletal: No edema. Neurologic: No focal neurological deficit. Mental Status: A&O x3, normal affect Skin: Mole on the back between scapula in the midline different appearing from other moles on her back LABORATORY DATA: Please see below. IMAGING: CXR 12/26/2019: Cardiomegaly and new right lower lobe opacity suspicious for pneumonia or possibly asymmetric pulmonary edema. PROGNOSIS: fair ACTIVITY: [As tolerated]. DIET: diabetic/cardiac diet DISPOSITION: home DISCHARGE INSTRUCTIONS: Please follow up with your primary care physician within 1 week from discharge. If you do not have one, please follow up with us to schedule an appointment. Please keep all of your follow up appointments. Please call central to book your appointments with hospital specialists. Please take all your medications as prescribed. Please call/come to Clinic or go to the Emergency Department if - Temp >101, intractable Nausea/Vomiting, Diarrhea, Mouth sores, Headaches, Altered mental status, Seizures, sudden onset of swelling, bleeding, shortness of breath or chest pain. Quarantine instructions per CDC recommendations discussed thoroughly with patient. She verbalizes understanding and will follow these recommendations. ITEMS TO FOLLOWUP ON ON OUTPATIENT: 1. Follow-up with PCP within 2-5 days of discharge to continue to titrate warfarin for therapeutic INR 2. Follow-up with dermatology as instructed DISCHARGE CONDITION: [Stable]. TIME SPENT ON DISCHARGE: Greater than 50 minutes. Vital Signs/I&Os Vital Signs Date Time Temp Pulse Resp B/P (MAP) Pulse Ox O2 Delivery O2 Flow Rate FiO2 12/28/19 08:00 97.1 91 20 131/72 (91) 94 Room Air 12/28/19 00:57 1.0 I&O- Last 24 Hours up to 6 AM 12/28/19 06:00 Intake Total 2980 ml Output Total 1795 ml Balance 1185 ml Laboratory Data Labs 24H Laboratory Tests 2 12/27/19 13:12: Lactic Acid Level 3.0*H 12/27/19 16:14: Bedside Glucose (Misc Panel) 302H 12/27/19 18:48: Lactic Acid Followup at 4 Hours 2.4*H 12/27/19 20:31: Bedside Glucose (Misc Panel) 322H 12/27/19 21:15: Methicillin-Resist S.aureus DNA PCR NOT DETECTED 12/27/19 22:20: Urine Color YELLOW, Urine Appearance HAZY, Urine pH 5.0, Urine Specific [place] 1.023, Urine Protein 1+H, Urine Glucose (Auto)(UA) 2+H, Urine Ketones (Auto) NEGATIVE, Urine Blood 1+H, Urine Nitrite NEGATIVE, Urine Bilirubin NEGATIVE, Urine Urobilinogen 2.0H, Urine Leukocyte Esterase (Auto) NEGATIVE, Urine WBC (Auto) 1, Urine RBC (Auto) 3, Urine Hyaline Casts (Auto) 0, Urine Bacteria (Auto) NEGATIVE, Urine Squamous Epithelial Cells 0, Urine Mucus (Auto) SMALL, Urine Sperm (Auto) 12/28/19 06:21: Bedside Glucose (Misc Panel) 294H 12/28/19 07:39: Immature Granulocyte % (Auto) 3.7H, Neutrophils (%) (Auto) 82.0H, Lymphocytes (%) (Auto) 6.2L, Monocytes (%) (Auto) 7.6H, Eosinophils (%) (Auto) 0.0, Basophils (%) (Auto) 0.5, Neutrophils # (Auto) 8.0, Lymphocytes # (Auto) 0.6L, Monocytes # (Auto) 0.7, Eosinophils # (Auto) 0.0, Basophils # (Auto) 0.1, Nucleated Red Blood Cells % (auto) 0.0, Prothrombin Time 42.8H, Prothromb Time International Ratio 4.37, Activated Partial Thromboplast Time 38.5H, Fibrinogen 641H, Anion Gap 6L, Glomerular Filtration Rate > 60.0, Lactic Acid Level 1.5, Calcium Level 8.3L, Magnesium Level 1.9, Ferritin 1001H, Total Bilirubin 1.0, Direct Bilirubin 0.3H, Aspartate Amino Transf (AST/SGOT) 30, Alanine Aminotransferase (ALT/SGPT) 61, Alkaline Phosphatase 78, TC-Dkt-G-Type Natriuretic Peptide 1071H, Total Protein 6.5, Albumin 2.4L, Albumin/Globulin R atio 0.6L 12/28/19 11:19: Bedside Glucose (Misc Panel) 431H CBC/BMP Laboratory Tests 12/28/19 07:39 FSBS Laboratory Tests Test 12/27/19 16:14 12/27/19 20:31 12/28/19 06:21 12/28/19 11:19 Range/Units Bedside Glucose (Misc Panel) 302 322 294 431 83-110 MG/DL Microbiology Microbiology 12/26/19 Blood Culture - Preliminary, Resulted No growth after 24 hours . All specim... 12/26/19 Blood Culture - Preliminary, Resulted No growth after 24 hours . All specim... Discharge Medications Scheduled Cholecalciferol (Vitamin D3) (Vitamin D3) 1,000 Unit Tablet, 1,000 UNITS PO DAILY, (Reported) Diltiazem HCl (Diltiazem HCl) 30 Mg Tablet, 90 MG PO TID Furosemide (Furosemide) 40 Mg Tablet, 60 MG PO DAILY, (Reported) Levofloxacin (Levofloxacin) 750 Mg Tablet, 1 TAB PO DAILY Levothyroxine Sodium (Levothyroxine Sodium) 175 Mcg Tab, 175 MCG PO DAILY, (Reported) Linezolid (Linezolid) 600 Mg Tablet, 600 MG PO BID Losartan Potassium (Losartan Potassium) 25 Mg Tab, 25 MG PO QHS, (Reported) Metoprolol Tartrate (Metoprolol Tartrate) 100 Mg Tab, 200 MG PO DAILY, (Reported) Metoprolol Tartrate (Metoprolol Tartrate) 100 Mg Tab, 100 MG PO QHS, (Reported) Prednisone (Prednisone) 50 Mg Tablet, 50 MG PO DAILY Sitagliptin Phosphate (Januvia) 100 Mg Tablet, 100 MG PO QPM, (Reported) DINNER TIME Spironolactone (Spironolactone) 25 Mg Tab, 12.5 MG PO DAILY, (Reported) Warfarin Sodium (Warfarin Sodium) 3 Mg Tablet, 3 MG PO 3XW MON/TUE/FRI AT 1700 Warfarin Sodium (Warfarin Sodium) 2 Mg Tablet, 2 MG PO 4XWK SUN/WED/THURS/SAT AT 1700 Scheduled PRN Acetaminophen (Acetaminophen) 325 Mg Tablet, 650 MG PO Q4H PRN for PAIN / FEVER Albuterol Sulfate (Proair Hfa) 8.5 Gm Hfa.aer.ad, 2 PUFF INH Q4-6HP PRN for w heezing Allergies Coded Allergies: Penicillins (Verified Allergy, Severe, HIVES,ANAPHYLAXIS, 12/26/19) SEAFOOD (Verified Allergy, Severe, THROAT SWELLING, 12/26/19) LIZETTE PIERRE MD Dec 28, 2019 12:49
[2019-12-28] MEDS ORDERED: DILT30TA PO (13:06)
[2019-12-28] MEDS ORDERED: WARF-58 PO (13:06)
[2019-12-28] MEDS ORDERED: LINE1TAB6 PO (13:06)
[2019-12-28] MEDS ORDERED: WARF4TAB51 PO (13:06)
[2019-12-28] MEDS ORDERED: LEVO750T13 PO (13:06)
[2019-12-28] MEDS ORDERED: ACET-908 PO (13:06)
[2019-12-28] MEDS ORDERED: PRED50TA PO (13:06)
[2019-12-28] MEDS ORDERED: PROAAER10 INH (13:06)
[2019-12-28] MEDS: ACETAMINOPHEN TAB 650MG DOSE (2X325MG) PO PRN (13:16)
--- NOTE | 2019-12-28 14:14 | ECGEPIP ---
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 Electronically Signed on 12-28-2019 14:13:41 EST by Hunter Nguyen
--- NOTE | 2019-12-28 15:26 | ECGEPIP ---
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 Electronically Signed on 12-28-2019 15:26:42 EST by Hunter Nguyen
[2019-12-28] MEDS ORDERED: LevoFLOXacin IV 750 MG in IV 1 EA IV SCH (16:00)
== END 2019-12-28 16:07 | disposition home health service (06) | DRG 177 ==
LOC: M ED 10:46 → M ED INP 10:47 → ENRESERV 15:37 → M 4MAIN 17:26 → OBSVTOIN 12-27 16:06
PROVIDERS: ADMIT Family Medicine; ATTEND Family Medicine
DX: U07.1 COVID-19 (principal); J12.81 Pneumonia due to SARS-associated coronavirus; I50.32 Chronic diastolic (congestive) heart failure; E87.2 Acidosis; I11.0 Hypertensive heart disease with heart failure; I48.91 Unspecified atrial fibrillation; I50.9 Heart failure, unspecified; Z90.49 Acquired absence of other specified parts of digestive tract; E89.0 Postprocedural hypothyroidism; R73.9 Hyperglycemia, unspecified; L98.9 Disorder of the skin and subcutaneous tissue, unspecified; Z79.01 Long term (current) use of anticoagulants; Z79.52 Long term (current) use of systemic steroids; Z79.899 Other long term (current) drug therapy; Z88.0 Allergy status to penicillin; Z91.013 Allergy to seafood; T38.0X5A Adverse effect of glucocorticoids and synthetic analogues, initial encounter

== ENCOUNTER 2020-03-24 14:38 | Inpatient (IN) | payer MEDICARE ==
[~2020-03-24] VITALS: Ht 177.8 cm; Wt 107.0 kg
[~2020-03-24 14:38] MED LIST changes: +ACET-908 PO; +DILT30TA PO; +LINE1TAB6 PO; +PRED50TA PO; +PROAAER10 INH; +WARF4TAB51 PO
--- OUTSIDE RECORDS SUMMARY | 2020-03-24 14:47 | CCD | Continuity of Care Document ---
Author Author Roselia CHAVIS RPA Organization Unknown Address [address] [facility] [address] [place] [address] Phone [phone] Care Team Providers Care Blade Balancer Name Role Phone [facility] Cardiology - Cardiovascular Disease AUTM [phone] Problems Active Problems Provider Date Urge incontinence of urine Margo Arthur RPA Onset: 2005 Polyarthropathy Aguilar Chavis RPA Onset: 10/16/2007 Postablative hypothyroidism Aguilar Chavis, RPA Onset: Hematuria syndrome Aguilar Chavis, RPA Onset: 05/28/2012 Vitamin D deficiency Aguilar Chavis, RPA Onset: 5 Essential hypertension Aguilar Chavis, RPA Onset: 015 Chronic atrial fibrillation Aguilar Chavis, RPA Onset: Unspecified systolic (congestive) heart failure Alexx Chavis, RPA Onset: 12/04/2014 Hyperlipidemia Aguilar Chavis RPA Onset: 09/21/2015 Type 2 diabetes mellitus Aguilar Chavis, RPA Onset: 09/21 Long-term current use of anticoagulant Aguilar Chavis, RP A Onset: 03/30/2016 Proteinuria Aguilar Chavis, RPA Onset: 06/28/2016 Hypocalcemia Aguilar Chavis, RPA Onset: 01/31/2018 Note: [facility] 01/24/18 Anemia Aguilar Chavis, RPA Onset: 01/31/2018 Note: 01/24/18 [facility] Social History Type Date Description Comments Sex Unknown ETOH Use alcohol use: never used Tobacco Use Start: Unknown Patient has never smoked Seat Belt/Car Seat always Allergies, Adverse Reactions, Alerts Active Allergies Reaction Severity Comments Date Fish Throat edema 02/20/2006 Penicillin 07/09/2015 Metformin diarrhea 11/21/2019 Inactive Allergies NKDA 04/28/2011 Medications Active Medications SIG Qnty Indications Ordering Provide r Date Januvia 100mg Tablets 1 by mouth every day 30tabs Quinton Guillen D.O., [facility] Vitamin B Complex Tablets 1 by mouth every day 90tabs [facility] Levothyroxine Sodium 175mcg Tablet s take 1 tablet by mouth once daily 90tabs Quinton Guillen D.O. , [facility] 01/11/2012 Warfarin Sodium 4mg Tablets (05/29/19 alternate 4-3-3-4) 90tabs Quitnon Guillen D.O., [facility] 11/25/2010 Warfarin Sodium 3mg Tablets (05/29/19 alternate 4-3-3-4) 90tabs Quinton Guillen D.O., [facility] 11/25/2010 Potassium Chloride CR 10Meq Capsul es ER 1 PO qd 30caps Unknown Cardizem 60mg Tablets 1 tid Unknown Losartan Potassium 25mg Tablets 1 by mouth every day Unknown Metoprolol Tartrate 100mg Tablets take two tablets by mouth in the Am, one tab in PM. Unkno wn Spironolactone 25mg Tablets 1/2 by mouth every day () [facility] Cardiolog y Furosemide 40mg Tablets 1 po Am and 1/2 Afternoon() [facility] Cardiology History Medications Diflucan 100mg Tablets 2 by mouth stat, then one by mouth every day x 5 days 7tabs Quinton Guillen D.O., FAAFP 12/31/2019 - 01/06/2020 Metformin HCL 500mg Tablets take one tablet by mouth every day with evening meal 90tabs Quinton Guillen D.O., FAAFP 10/23/2019 - 11/19/2019 Immunizations CPT Code Status Date Vaccine Lot # [id number] Refused 10/22/2019 Influenza Virus Vaccine, Quadrivalent, Slit Virus, Im Use 3Y & Up 13886 Refused 11/13/2017 Influenza Virus Vaccine, Quadrivalent, Slit Virus, Im Use 3Y & Up [id number] Refused 12/04/2014 Influenza Vaccin e (Fluzone) 3Yrs Of Age Or Older Medicare Plans Vital Signs Date Vital Result Comment 01/21/2020 4:11pm BP Systolic 128 mmHg BP Diastolic 72 mmHg Body Temperature 98.0 F Heart Rate 98 /min Respiratory Rate 18 /min Height 66.25 inches 5'6.25" Weight 240.00 lb [facility] Body Weight 130 lb BMI (Body Mass Index) 38.4 kg/m2 O2 % BldC Oximetry 93 % 10/22/2019 11:12am BP Systolic 124 mmHg BP Diastolic 64 mmHg Body Temperature 97.2 F Heart Rate 61 /min Respiratory Rate 16 /min Height 66.25 inches 5'6.25" Weight 245.00 lb [facility] Body Weight 130 lb BMI (Body Mass Index) 39.2 kg/m2 O2 % BldC Oximetry 96 % Results Test Acquired Date Facility Test Result H/L Range Note Prothrombin Time (PT) 01/21/2020 [facility] [place] Inr TNP 1 Prothrombin Time TNP 2 Hemoglobin A1c 01/21/2020 [facility] Hemoglobin A1c 10.3 % High 4.8-5.6 3 Laboratory test finding 01/21/2020 [facility] Request Problem TNP Abnormal 4 CBC 01/21/2020 [facility] WBC 6.9 10E3/uL 4.1 - 10.9 5 RBC 3.94 10E6/uL Low 4.20 - 6.30 HGB 12.0 g/dL 12.0 - 18.0 HCT 36.1 % Low 37.0 - 51.0 MCV 91.6 fL 80.0 - 97.0 MCH 30.5 pg 26.0 - 32.0 MCHC 33.2 g/dL 31.0 - 36.0 PLT 202 10E3/uL 140 - 440 RDW-CV 16.1 % High 11.5 - 14.5 Lym% 21.9 % 10.0 - 58.5 Neut% 65.4 % 37.0 - 92.0 MXD% 12.7 % 0.1 - 24.0 Lym# 1.5 10E3/uL 0.6 - 4.1 Neut# 4.5 % 2.0 - 7.8 MXD# 0.9 10E3/uL 0.0 - 1.8 MPV 12.1 fL 9.0 - 13.0 CMP 01/21/2020 [facility] Glu 172 mg/dL High 70 - 110 BUN 16 mg/dL 8 - 23 Creat 0.8 mg/dL 0.5 - 1.0 BUN/Creatinine Ratio 20.7 Calc Na 138 mmol/L 136 - 145 K 4.0 mmol/L 3.5 - 5.1 CL 106.0 mmol/L 98.0 - 107.0 Co2 20.6 mmol/L Low 22.0 - 29.0 CA 9.6 mg/dL 8.6 - 10.2 TP 5.9 g/dL Low 6.6 - 8.7 Alb 3.7 g/dL 3.4 - 4.8 A/G Ratio 1.7 Calc Globulin 2.2 Calc Alp 104.3 U/L 35 - 129 Alt (SGPT) 28 U/L 0 - 41 Ast (Sgot) 25 U/L 0 - 40 Tbili 0.41 mg/dL 0.0 - 1.2 Osmolality-Calculated 281.4 Calc Anion Gap 16 mmol/L Comment SHORT SAMPLE eGFR 85 # Calc 6 eGFR Non-Afr. [place] 74 # Calc 7 CBC With Differential 12/26/2019 [facility] (Interface) [phone] White Blood Count 21.5 10 High 4.0-10.0 Red Blood Count 5.25 10 Normal 4.00-5.40 Hemoglobin 15.7 g/dL High 12.0-15.5 Hematocrit 46.3 % Normal 36.0-47.0 Mean Corpuscular Volume 88.2 fl Normal 80.0-96.0 Mean Corpuscular Hemoglobin 29.9 pg Normal 27.0-33.0 Mean Corpuscular HGB Conc 33.9 g/dL Normal 32.0-36.5 Red Cell Distribution Width 13.2 % Normal 11.5-14.5 Platelet Count, Automated 228 10 Normal 150-450 Neutrophils % 86.4 % High 36.0-66.0 Lymph % 3.2 % Low 24.0-44.0 [place] % 6.8 % High 0.0-5.0 Eos % 0.0 % Normal 0.0-3.0 Baso % 0.5 % Normal 0.0-1.0 Immature Granulocyte % 3.1 % High 0-3.0 Nucleated Red Blood Cell % 0.0 % Normal 0-0 Neutrophils # 18.6 10 High 1.5-8.5 Lymph # 0.7 10 Low 1.5-5.0 [place] # 1.5 10 High 0.0-0.8 Eos # 0.0 10 Normal 0.0-0.5 Baso # 0.1 10 Normal 0.0-0.2 Prothrombin Time/Inr 12/26/2019 [facility] ( Interface) [phone] Prothrombin Time 59.7 seconds High 12.5-14.3 Inr 6.67 Critical high 8 Laboratory test finding 12/26/2019 [facility] (Interface) [phone] D-Dimer Quant 830.13 ng/ml High <500 Comprehensive Met[facility] [phone] Glucose, Fasting 384 mg/dL High 70-100 Blood Urea Nitrogen 30 mg/dL High 7-18 Creatinine For GFR 0.89 mg/dL Normal 0.55-1.30 Glomerular Filtration Rate > 60.0 Normal >39 9 Sodium Level 135 mEq/L Low 136-145 Potassium Serum 4.5 mEq/L Normal 3.5-5.1 Chloride Level 103 mEq/L Normal 98-107 Carbon Dioxide Level 25 mEq/L Normal 21-32 Anion Gap 7 mEq/L Low 8-16 Calcium Level 9.3 mg/dL Normal 8.8-10.2 Ast/Sgot 18 U/L Normal 7-37 Alt/SGPT 42 U/L Normal 12-78 Alkaline Phosphatase 88 U/L Normal 45-117 Bilirubin,Total 0.9 mg/dL Normal 0.2-1.0 Total Protein 7.5 GM/DL Normal 6.4-8.2 Albumin 3.3 GM/DL Normal 3.2-5.2 Albumin/Globulin Ratio 0.8 Low 1.2-2.2 Cardiac Marker Panel 12/26/2019 [facility]) [phone] CPK Creatine Phosphokinase 53 U/L Normal 26-19 2 CK-MB Value Mass < 1.0 NG/ML Normal <3.6 MB/CK Relative Index 1.89 Normal < Or =4 10 Troponin I < 0.02 NG/ML Normal < 0.10 11 Laboratory test finding 12/26/2019 [facility] (Interface) [phone] LDH Lactate Dehydrogenase 287 U/L High 84-246 Ferritin 601 NG/ML High 8-252 Lactic Acid Sepsis Protocol 2.9 mmol/L Critical high 0.4-2.0 12 PT & Aptt 12/18/2019 [facility] (I nterfa) [phone] Prothrombin Time 21.7 seconds High 12.5-14.3 Inr 1.84 Normal 13 Partial Thromboplastin Time 41.7 seconds High 24.2-38.5 Laboratory test finding 12/18/2019 [facility] (Interface) [phone] NT-Pro BNP 2260 pg/mL High <125 Lipase 77 U/L Normal 73-393 Thyroid Stimulating Hormone 0.451 uIU/ML Normal 0.358-3.740 Basic Metabolic Profile 12/18/2019 [facility] (Interface) [phone] Glucose, Fasting 129 mg/dL High 70-100 Blood Urea Nitrogen 10 mg/dL Normal 7-18 Creatinine For GFR 0.87 mg/dL Normal 0.55-1.30 Glomerular Filtration Rate > 60.0 Normal >39 1 4 Sodium Level 138 mEq/L Normal 136-145 Potassium Serum 4.2 mEq/L Normal 3.5-5.1 Chloride Level 106 mEq/L Normal 98-107 Carbon Dioxide Level 25 mEq/L Normal 21-32 Anion Gap 7 mEq/L Low 8-16 Calcium Level 9.2 mg/dL Normal 8.8-10.2 Liver Profile 12/18/2019 [facility] (I nterfa) [phone] Ast/Sgot 22 U/L Normal 7-37 Alt/SGPT 29 U/L Normal 12-78 Alkaline Phosphatase 101 U/L Normal 45-117 Bilirubin,Total 0.7 mg/dL Normal 0.2-1.0 Bilirubin,Direct 0.3 mg/dL High 0.0-0.2 Total Protein 7.8 GM/DL Normal 6.4-8.2 Albumin 4.1 GM/DL Normal 3.2-5.2 Albumin/Globulin Ratio 1.1 Low 1.2-2.2 Cardiac Marker Panel 12/18/2019 [facility] ( Interface) [phone] CPK Creatine Phosphokinase 40 U/L Normal 26-19 2 CK-MB Value Mass < 1.0 NG/ML Normal <3.6 MB/CK Relative Index 2.50 Normal < Or =4 15 Troponin I < 0.02 NG/ML Normal < 0.10 16 CBC With Differential [facility] [phone] White Blood Count 9.0 10 Normal 4.0-10.0 Red Blood Count 4.42 10 Normal 4.00-5.40 Hemoglobin 13.2 g/dL Normal 12.0-15.5 Hematocrit 40.8 % Normal 36.0-47.0 Mean Corpuscular Volume 92.3 fl Normal 80.0-96.0 Mean Corpuscular Hemoglobin 29.9 pg Normal 27.0-33.0 Mean Corpuscular HGB Conc 32.4 g/dL Normal 32.0-36.5 Red Cell Distribution Width 14.0 % Normal 11.5-14.5 Platelet Count, Automated 178 10 Normal 150-450 Neutrophils % 77.2 % High 36.0-66.0 Lymph % 12.1 % Low 24.0-44.0 [place] % 9.8 % High 0.0-5.0 Eos % 0.0 % Normal 0.0-3.0 Baso % 0.2 % Normal 0.0-1.0 Immature Granulocyte % 0.7 % Normal 0-3.0 Nucleated Red Blood Cell % 0.0 % Normal 0-0 Neutrophils # 7.0 10 Normal 1.5-8.5 Lymph # 1.1 10 Low 1.5-5.0 [place] # 0.9 10 High 0.0-0.8 Eos # 0.0 10 Normal 0.0-0.5 Baso # 0.0 10 Normal 0.0-0.2 Respiratory Panel 12/18/2019 [facility] (I nterface) [phone] Respiratory Panel respiratory PCR <SEE NOTE> 17 Prothrombin Time (PT) 11/19/2019 [facility] Inr 2.6 18 Prothrombin Time 25.9 seconds High 11.7-14.5 Prothrombin Time (PT) 10/22/2019 [facility] Inr 2.2 19 Prothrombin Time 23.0 seconds High 11.7-14.5 Hemoglobin A1c 10/22/2019 [facility] Hemoglobin A1c 7.2 % High 4.8-5.6 20 Laboratory test finding 10/22/2019 [facility] Vitamin D, 25-Hydroxy 33.7 ng/mL 30.0-100.0 21 Laboratory test finding 10/22/2019 [facility]house TSH 1.116 ulU/mL 0.60 - 4.8 CMP 10/22/2019 [facility] Glu 206 mg/dL High 70 - 110 22 BUN 20 mg/dL 8 - 23 Creat 0.8 mg/dL 0.5 - 1.0 BUN/Creatinine Ratio 25.6 CALC Na 137 mmol/L 136 - 145 K 4.4 mmol/L 3.5 - 5.1 CL 103.1 mmol/L 98.0 - 107.0 Co2 21.2 mmol/L Low 22.0 - 29.0 CA 10.0 mg/dL 8.6 - 10.2 TP 7.1 g/dL 6.6 - 8.7 Alb 4.4 g/dL 3.4 - 4.8 A/G Ratio 1.6 CALC Globulin 2.7 CALC Alp 107.9 U/L 35 - 129 Alt (SGPT) 16 U/L 0 - 41 Ast (Sgot) 17 U/L 0 - 40 Tbili 0.45 mg/dL 0.0 - 1.2 Osmolality-Calculated 282.6 CALC Anion Gap 17 mmol/L eGFR 85 # Calc 23 eGFR Non-Afr. [place] 74 # Calc 24 Lipid Panel 10/22/2019 [facility] Chol 169 mg/dL 0 - 200 Trig 169 mg/dL 40 - 200 HDL 62 mg/dL 45 - 65 LDL_C 73 Calc Low 75 - 129 Cho/HDL Ratio 2.7 CALC Prothrombin Time (PT) 09/19/2019 [facility] Inr 2.9 High 0.8-1.2 25 Prothrombin Time 28.1 sec High 9.1-12.0 Prothrombin Time (PT) 08/19/2019 [facility] Inr 2.6 26 Prothrombin Time 26.1 seconds Off scale high 11.7-14.5 27 1 The specimen volume was insu fficient (tube less than 90% full) to obtain the proper plasma/anticoagulant ratio necessary for correct results. Reference interval is for non-anticoagulated patients. Suggested INR therapeutic range for Vitamin K antagonist therapy: Standard Dose (moderate intensity therapeutic range): 2.0 - 3.0 Higher intensity therapeutic range 2.5 - 3.5 2 Test not performed 3 Prediabetes: 5.7 - 6.4 Diabetes: >6.4 Glycemic control for adults with diabetes: <7.0 4 Comment: The specimen volume was insufficient (tube less than 90% full) to obtain the proper plasma/anticoagulant ratio necessary for correct results. TEST: [id number] Prothrombin Time (PT) 5 NORMAL RANGES Age WBC RBC HGB HCT MCV PLT Adult M 4.1-10.9 4.20-6.30 12.0-18.0 37.0-51.0 80-97 140-440 Adult F 4.1-10.9 4.04-5.48 12.0-18.0 37.0-51.0 80-97 140-440 0 -1 Yr 5.0-20.0 3.9-5.9 15-18 MV: 44 MV: 91 MV: 277 2-9 Yr. 6.0-17.0 3.8-5.4 11-13 MV: 37 MV: 78 MV: 300 10 Yrs. 5.0-13.0 3.8-5.4 12-15 MV: 39 MV: 80 MV: 250 NOTE: * FOR ADULT BLACK MALES AND FEMALES, NORMAL WBC IS 2.9-7.7 K/ML * FOR ADULT BLACK MALES AND FEMALES, NORMAL RBC,HGB, AND HCT IS 5% LESS SOURCE FOR DATA: [employer] 1800 OPERATION MANUAL( AUTOMATED BLOOD COUNTS AND DIFF.) APPENDIX B-3 CHRONIC KIDNEY DISEASE STAGING PER NKF: MALE GFR INTERPRETATION: 20-49 YRS: >60 mL/min Normal 50-59 YRS: >56 mL/min Normal 60-69 YRS: >49 mL/min Normal 70-79 YRS: >42 mL/min Normal 80 and above >35 mL/min Normal FEMALE GRF INTERPRETATION: 20-39 YRS: >60 mL/min Normal 40-49 YRS: >58 mL/min Normal 50-59 YRS: >51 mL/min Normal 60-69 YRS: >45 mL/min Normal 70-79 YRS: >39 mL/min Normal 80 and above >32 mL/min Normal 6 CKD-EPI 7 CKD-EPI 8 THERAPUTIC HUMAN INR VALUES INDICATIONS NORMAL RANGES PROPHYLAXIS/TREATMENT OF: VENOUS THROMBOSIS 2.0-3.0 PULMONARY EMBOLISM 2.0-3.0 PREVENTION OF SYSTEMIC EMBOLISM FROM: TISSUE HEART VALVES 2.0-3.0 ACUTE MYOCARDIAL INFARCTION 2.0-3.0 VALVULAR HEART DISEASE 2.0-3.0 ATRIAL FIBRILLATION 2.0-3.0 MECHANICAL VALVES(HIGH RISK) 2.5-3.5 RECURRENT MYOCARDIAL INFARCTION 2.5-3.5 9 Units are mL/min/1.73 m2 Chronic Kidney Disease Staging per NKF: Stage I & II GFR >=60 Normal to Mildly Decreased Stage III GFR 30-59 Moderately Decreased Stage IV GFR 15-29 Severely Decreased Stage V GFR <15 Very Little GFR Left ESRD GFR <15 on POLISHER IMPLANT 10 DIAGNOSIS CRITERIA MMB ng/ml Relative Index (RI) NON-AMI < or = 5 N/A RUDOLPH ZONE > 5 < or = 4 AMI > 5 > 4 11 Troponin I Reference Interva l for FeZo LOCI: 99th Percentile= 0.00-0.045 ng/ml Risk Stratification: <= 0.10 ng/ml Decreased Risk for Adverse Clinical Events. 0.10-1.50 ng/ml Increased Risk for Adv erse Clinical Events. Evaluation of additional criterion and/or repeat testing in 2-6 hours is suggested to rule out myocardial damage. >= 1.50 ng/ml Indicative of Myocardial Injury. 12 Y/N query for Sepsis Lactate Rule: Y 13 THERAPUTIC HUMAN INR VALUES INDICATIONS NORMAL RANGES PROPHYLAXIS/TREATMENT OF: VENOUS THROMBOSIS 2.0-3.0 PULMONARY EMBOLISM 2.0-3.0 PREVENTION OF SYSTEMIC EMBOLISM FROM: TISSUE HEART VALVES 2.0-3.0 ACUTE MYOCARDIAL INFARCTION 2.0-3.0 VALVULAR HEART DISEASE 2.0-3.0 ATRIAL FIBRILLATION 2.0-3.0 MECHANICAL VALVES(HIGH RISK) 2.5-3.5 RECURRENT MYOCARDIAL INFARCTION 2.5-3.5 14 Units are mL/min/1.73 m2 Chronic Kidney Disease Staging per NKF: Stage I & II GFR >=60 Normal to Mildly Decreased Stage III GFR 30-59 Moderately Decreased Stage IV GFR 15-29 Severely Decreased Stage V GFR <15 Very Little GFR Left ESRD GFR <15 on POLISHER IMPLANT 15 DIAGNOSIS CRITERIA MMB ng/ml Relative Index (RI) NON-AMI < or = 5 N/A RUDOLPH ZONE > 5 < or = 4 AMI > 5 > 4 16 Troponin I Reference Interva l for FeZo LOCI: 99th Percentile= 0.00-0.045 ng/ml Risk Stratification: <= 0.10 ng/ml Decreased Risk for Adverse Clinical Events. 0.10-1.50 ng/ml Increased Risk for Adv erse Clinical Events. Evaluation of additional criterion and/or repeat testing in 2-6 hours is suggested to rule out myocardial damage. >= 1.50 ng/ml Indicative of Myocardial Injury. 17 respiratory PCR panel detect s Influenza A H1, H3 and 2009 H1 viruses, Influenza B virus, Respiratory Syncytial Virus, Human metapneumovirus, Parainfluenza virus 1, 2, 3 and 4, Adenovirus, Rhinovirus/Enterovirus, Coronavirus HKU1, NL63, OC43, 229E and SARS-CoV-2 (COVID 19), Bordetella pertussis, Bordetella parapertussis, Mycoplasma pneumoniae and Chlamydia pneumoniae. POSITIVE by MULTIPLEXED NUCLEIC ACID PCR SARS-CoV-2 (COVID 19) POSITIVE - SARS-CoV-2 (COVID19) ORGANISM 1: SARS-CoV-2 (COVID 19) 18 INTERNATIONAL NORMALIZED RAT IO(INR) INDICATIONS INR RANGE --- PATIENTS NOT ON ANTICOAGULANT THERAPY * DEEP VENOUS THROMBOSIS 2.0-3.0 PULMONARY EMBOLISM 2.0-3.0 ATRIAL FIBRILLATION 2.0-3.0 PROPHYLAXIS: 2.0-3.0 HIGH-RISK SURGERY TISSUE HEART VALVES ATRIAL FIBRILLATION ACUTE MYOCARDIAL INFARCTION VALVULAR HEART DISEASE MECHANICAL PROSTHETIC VALVE 2.5-3.5 * USE OF INR VALUES SHOULD BE LIMITED TO PATIENTS WHO ARE ON STABLE ORAL ANTICOAGULANT THERAPY. AN INR ABOVE 5.0-5.5 APPEARS TO BE ASSOCIATED WITH AN UNACCEPTABLY HIGH RISK OF BLEEDING. 19 INTERNATIONAL NORMALIZED RAT IO(INR) INDICATIONS INR RANGE --- PATIENTS NOT ON ANTICOAGULANT THERAPY * DEEP VENOUS THROMBOSIS 2.0-3.0 PULMONARY EMBOLISM 2.0-3.0 ATRIAL FIBRILLATION 2.0-3.0 PROPHYLAXIS: 2.0-3.0 HIGH-RISK SURGERY TISSUE HEART VALVES ATRIAL FIBRILLATION ACUTE MYOCARDIAL INFARCTION VALVULAR HEART DISEASE MECHANICAL PROSTHETIC VALVE 2.5-3.5 * USE OF INR VALUES SHOULD BE LIMITED TO PATIENTS WHO ARE ON STABLE ORAL ANTICOAGULANT THERAPY. AN INR ABOVE 5.0-5.5 APPEARS TO BE ASSOCIATED WITH AN UNACCEPTABLY HIGH RISK OF BLEEDING. 20 Prediabetes: 5.7 - 6.4 Diabetes: >6.4 Glycemic control for adults with diabetes: <7.0 21 Vitamin D deficiency has bee n defined by the [place] [employer] and an Endocrine Society practice guideline as a level of serum 25-OH vitamin D less than 20 ng/mL (1,2). The Endocrine Society went on to further define vitamin D insufficiency as a level between 21 and 29 ng/mL (2). 1. IOM ([place] of [employer]). 2010. Di etary reference intakes for calcium and D. [place]: The National Academies Press. 2. Deric VANESSA, Gretel WILLIAMSON, Kelvin small MONTERO, et al. Evaluation, treatment, and prevention of vitamin D deficiency: an Endocrine Society clinical practice guideline. JCEM. 2010; 96(7):1911-30. 22 CHRONIC KIDNEY DISEASE STAGI NG PER NKF: MALE GFR INTERPRETATION: 20-49 YRS: >60 mL/min Normal 50-59 YRS: >56 mL/min Normal 60-69 YRS: >49 mL/min Normal 70-79 YRS: >42 mL/min Normal 80 and above >35 mL/min Normal FEMALE GRF INTERPRETATION: 20-39 YRS: >60 mL/min Normal 40-49 YRS: >58 mL/min Normal 50-59 YRS: >51 mL/min Normal 60-69 YRS: >45 mL/min Normal 70-79 YRS: >39 mL/min Normal 80 and above >32 mL/min NormalCLASSIFICATION CHOLESTEROL FOR ADULTS CHILDREN/ADOLESCENTS* DESIRABLE: <200 MG/DL <170 MG/DL BORDER-LINE HIGH RISK: 200-239 MG/DL 170-199 MG/DL HIGH RISK: >240 MG/DL >200 MG/DL CLASS. FOR PRIMARY LDL CHOL PREVENTION: LDL CHOL-CHILD/ADOLESCENTS* DESIRABLE: <130 MG/DL <110 MG/DL BORDERLINE-HIGH RISK: 130-159 MG/DL 110-129 MG/DL HIGH RISK: >160 MG/DL >130 MG/DL *CHILDREN AND ADOLESCENTS REPRESENTS INDIVIDUALA AGED 2-19 YEARS EXCLUSIVE. 23 CKD-EPI 24 CKD-EPI 25 Reference interval is for no n-anticoagulated patients. Suggested INR therapeutic range for Vitamin K antagonist therapy: Standard Dose (moderate intensity therapeutic range): 2.0 - 3.0 Higher intensity therapeutic range 2.5 - 3.5 26 INTERNATIONAL NORMALIZED RAT IO(INR) INDICATIONS INR RANGE --- PATIENTS NOT ON ANTICOAGULANT THERAPY * DEEP VENOUS THROMBOSIS 2.0-3.0 PULMONARY EMBOLISM 2.0-3.0 ATRIAL FIBRILLATION 2.0-3.0 PROPHYLAXIS: 2.0-3.0 HIGH-RISK SURGERY TISSUE HEART VALVES ATRIAL FIBRILLATION ACUTE MYOCARDIAL INFARCTION VALVULAR HEART DISEASE MECHANICAL PROSTHETIC VALVE 2.5-3.5 * USE OF INR VALUES SHOULD BE LIMITED TO PATIENTS WHO ARE ON STABLE ORAL ANTICOAGULANT THERAPY. AN INR ABOVE 5.0-5.5 APPEARS TO BE ASSOCIATED WITH AN UNACCEPTABLY HIGH RISK OF BLEEDING. 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 E89.0 Postprocedural hypothyroidis m R31.9 Hematuria, unspecified M13.0 Polyarthritis, unspecified E55.9 Vitamin D deficiency, unspec ified N39.41 Urge incontinence Office Visit 10/22/2019 11:15a [facility] Aguilar Chavis, RP A E11.9 Type 2 diabetes mellitus without complications I10 Essential (primary) hyperten [place] E78.5 Hyperlipidemia, unspecified I48.20 Chronic atrial fibrillation, unspecified E89.0 Postprocedural hypothyroidis m R31.9 Hematuria, unspecified Z79.01 [facility] (current) use of a nticoagulants M13.0 Polyarthritis, unspecified E55.9 Vitamin D deficiency, unspec ified N39.41 Urge incontinence Assessments Date Code Description Provider 01/21/2020 R53.83 Other fatigue Aguilar Chavis, RPA 01/21/2020 R53.1 Weakness Aguilar Chavis, RPA 01/21/2020 R06.02 Shortness of breath Alexx Chavis, RPA 01/21/2020 E11.9 Type 2 diabetes mellitus without complications Aguilar Chavis, RPA 01/21/2020 I10 Essential (primary) hypertension Aguilar Chavis, RPA 01/21/2020 E78.5 Hyperlipidemia, unspecified Aguilar Miranda, RPA 01/21/2020 I48.20 Chronic atrial fibrillation, uns pecified Aguilar Chavis, RPA 01/21/2020 Z79.01 [facility] (current) use of antic oagulants Aguilar Chavis, RPA 01/21/2020 E89.0 Postprocedural hypothyroidism Aguilar Wright, RPA 01/21/2020 R31.9 Hematuria, unspecified Adan Chavis, RPA 01/21/2020 M13.0 Polyarthritis, unspecified Hijollya Aguilar burnett, RPA 01/21/2020 E55.9 Vitamin D deficiency, unspecifie d Aguilar Chavis, RPA 01/21/2020 N39.41 Urge incontinence Bruce Chavis, RPA 11/19/2019 Z79.01 manager long term care (current) use of antic oagulants Harley Oreilly M.D. 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 08/19/2019 Z79.01 manager long term care (current) use of antic oagulants Aguilar Chavis RPA Plan of Treatment Future Appointment(s):* 04/23/2020 4:00 pm - Aguilar Chavis RPA at [facility] Functional Status Description No Information Available Mental Status Description No Information Available Referrals Description No Information Available
--- OUTSIDE RECORDS SUMMARY | 2020-03-24 14:47 | CCD | Continuity of Care Document ---
Author Author Roselia CHAVIS RPA Organization Unknown Address [address] [facility] [address] [place] [address] Phone [phone] Care Team Providers Care Supervisor Long Goods Name Role Phone [facility] Cardiology - Cardiovascular Disease AUTM [phone] Problems Active Problems Provider Date Urge incontinence [...] Aguilar Chavis, RPA Onset: 01/31/2018 Note: [facility] Labs 01/24/18 Anemia Aguilar Chavis, RPA Onset: 01/31/2018 Note: 01/24/18 [facility] Labs Social History Type Date Description Comments [...] mouth every day 30tabs Quinton Guillen D.O., [facility] Vitamin B Complex Tablets 1 by mouth every day 90tabs [facility].O., [facility] Levothyroxine Sodium 175mcg Tablet s take 1 tablet by mouth once daily 90tabs Quinton Guillen D.O. , [facility] 01/11/2012 Warfarin Sodium 4mg Tablets (05/29/19 alternate 4-3-3-4) 90tabs Quinton Guillen D.O., [facility] 11/25/2010 Warfarin Sodium 3mg Tablets (05/29/19 alternate 4-3-3-4) 90tabs Quinton Guillen D.O., [facility] 11/25/2010 Potassium Chloride CR 10Meq Capsul es ER 1 PO qd 30caps Unknown Cardizem 60mg Tablets 1 tid Unknown Losartan Potassium 25mg Tablets 1 by mouth every day Unknown Metoprolol Tartrate 100mg Tablets take two tablets by mouth in the Am, one tab in PM. Unkno wn Spironolactone 25mg Tablets 1/2 by mouth every day () [facility] Cardiolog y Furosemide 40mg Tablets 1 po Am and 1/2 Afternoon() [facility] Cardiology History Medications Diflucan 100mg Tablets 2 by mouth stat, then one by mouth every day x 5 days 7tabs Quinton Guillen D.O., [facility] 12/31/2019 - 01/06/2020 Metformin HCL 500mg Tablets take one tablet by mouth every day with evening meal 90tabs Quinton Guillen D.O., FAAFP 10/23/2019 - 11/19/2019 Immunizations CPT Code Status Date Vaccine Lot # [id number] Refused 10/22/2019 Influenza Virus Vaccine, Quadrivalent, Slit Virus, Im Use 3Y & Up 16125 Refused 11/13/2017 Influenza Virus Vaccine, Quadrivalent, Slit Virus, Im Use 3Y & Up [id number] Refused 12/04/2014 Influenza Vaccin e (Fluzone) 3Yrs Of Age Or Older Medicare Plans Vital Signs Date Vital Result Comment 01/21/2020 4:11pm BP Systolic 128 mmHg BP Diastolic 72 mmHg Body Temperature 98.0 F Heart Rate 98 /min Respiratory Rate 18 /min Height 66.25 inches 5'6.25" Weight 240.00 lb [place] Body Weight 130 lb BMI (Body Mass Index) 38.4 kg/m2 O2 % BldC Oximetry 93 % 10/22/2019 11:12am BP Systolic 124 mmHg BP Diastolic 64 mmHg Body Temperature 97.2 F Heart Rate 61 /min Respiratory Rate 16 /min Height 66.25 inches 5'6.25" Weight 245.00 lb [place] Body Weight 130 lb BMI (Body Mass [...] eGFR 85 # Calc 6 eGFR Non-Afr. [place]ien 74 # Calc 7 CBC With Differential 12/26/2019 [facility] (Interface) [phone] White Blood Count 21.5 10 High 4.0-10.0 [...] 36.0-66.0 Lymph % 3.2 % Low 24.0-44.0 [place] % 6.8 % High 0.0-5.0 Eos % 0.0 % Normal 0.0-3.0 Baso % 0.5 % Normal 0.0-1.0 Immature Granulocyte % 3.1 % High 0-3.0 Nucleated Red Blood Cell % 0.0 % Normal 0-0 Neutrophils # 18.6 10 High 1.5-8.5 Lymph # 0.7 10 Low 1.5-5.0 [place] # 1.5 10 High 0.0-0.8 Eos # 0.0 10 Normal 0.0-0.5 Baso # 0.1 10 Normal 0.0-0.2 Prothrombin Time/Inr 12/26/2019 [facility] ( Interface) [phone] Prothrombin Time 59.7 seconds High 12.5-14.3 Inr 6.67 Critical high 8 Laboratory test finding 12/26/2019 [facility] (Interface) [phone] D-Dimer Quant 830.13 ng/ml High <500 [facility] [phone] Glucose, Fasting 384 mg/dL High 70-100 Blood [...] 0.8 Low 1.2-2.2 Cardiac Marker Panel 12/26/2019 [facility]) [phone] CPK Creatine Phosphokinase 53 U/L Normal 26-19 2 CK-MB Value Mass < 1.0 NG/ML Normal <3.6 MB/CK Relative Index 1.89 Normal < Or =4 10 Troponin I < 0.02 NG/ML Normal < 0.10 11 Laboratory test finding 12/26/2019 [facility] (Interface) [phone] LDH Lactate Dehydrogenase 287 U/L High 84-246 Ferritin 601 NG/ML High 8-252 Lactic Acid Sepsis Protocol 2.9 mmol/L Critical high 0.4-2.0 12 PT & Aptt 12/18/2019 [facility] (I nterfa) [phone] Prothrombin Time 21.7 seconds High 12.5-14.3 Inr 1.84 Normal 13 Partial Thromboplastin Time 41.7 seconds High 24.2-38.5 Laboratory test finding 12/18/2019 [facility] (Interface) [phone] NT-Pro BNP 2260 pg/mL High <125 Lipase 77 U/L Normal 73-393 Thyroid Stimulating Hormone 0.451 uIU/ML Normal 0.358-3.740 Basic Metabolic Profile 12/18/2019 [facility] (Interface) [phone] Glucose, Fasting 129 mg/dL High 70-100 Blood [...] 9.2 mg/dL Normal 8.8-10.2 Liver Profile 12/18/2019 [facility] (I nterfa) [phone] Ast/Sgot 22 U/L Normal 7-37 Alt/SGPT 29 U/L Normal 12-78 Alkaline Phosphatase 101 U/L Normal 45-117 Bilirubin,Total 0.7 mg/dL Normal 0.2-1.0 Bilirubin,Direct 0.3 mg/dL High 0.0-0.2 Total Protein 7.8 GM/DL Normal 6.4-8.2 Albumin 4.1 GM/DL Normal 3.2-5.2 Albumin/Globulin Ratio 1.1 Low 1.2-2.2 Cardiac Marker Panel 12/18/2019 [facility] ( Interface) [phone] CPK Creatine Phosphokinase 40 U/L Normal 26-19 2 CK-MB Value Mass < 1.0 NG/ML Normal <3.6 MB/CK Relative Index 2.50 Normal < Or =4 15 Troponin I < 0.02 NG/ML Normal < 0.10 16 CBC With Differential [facility] [phone] White Blood Count 9.0 10 Normal 4.0-10.0 [...] 36.0-66.0 Lymph % 12.1 % Low 24.0-44.0 [place] % 9.8 % High 0.0-5.0 Eos % 0.0 % Normal 0.0-3.0 Baso % 0.2 % Normal 0.0-1.0 Immature Granulocyte % 0.7 % Normal 0-3.0 Nucleated Red Blood Cell % 0.0 % Normal 0-0 Neutrophils # 7.0 10 Normal 1.5-8.5 Lymph # 1.1 10 Low 1.5-5.0 [place] # 0.9 10 High 0.0-0.8 Eos # 0.0 10 Normal 0.0-0.5 Baso # 0.0 10 Normal 0.0-0.2 Respiratory Panel 12/18/2019 [facility] (I nterface) [phone] Respiratory Panel respiratory PCR <SEE NOTE> 17 [...] eGFR 85 # Calc 23 eGFR Non-Afr. Nigerien 74 # Calc 24 Lipid Panel 10/22/2019 [...] plasma/anticoagulant ratio necessary for correct results. TEST: [id number] Prothrombin Time (PT) 5 NORMAL RANGES Age [...] HCT IS 5% LESS SOURCE FOR DATA: [employer] 1800 OPERATION MANUAL( AUTOMATED BLOOD COUNTS AND [...] Little GFR Left ESRD GFR <15 on WINCHER 10 DIAGNOSIS CRITERIA MMB ng/ml Relative Index (RI) NON-AMI < or = 5 N/A RUDOLPH ZONE > 5 < or = 4 AMI > 5 > 4 11 Troponin I Reference Interva l for Sport/Life LOCI: 99th Percentile= 0.00-0.045 ng/ml Risk Stratification: [...] Little GFR Left ESRD GFR <15 on WINCHER 15 DIAGNOSIS CRITERIA MMB ng/ml Relative Index (RI) NON-AMI < or = 5 N/A RUDOLPH ZONE > 5 < or = 4 AMI > 5 > 4 16 Troponin I Reference Interva l for Sport/Life LOCI: 99th Percentile= 0.00-0.045 ng/ml Risk Stratification: [...] deficiency has bee n defined by the [place] of [employer] and an Endocrine Society practice guideline as a level of serum 25-OH vitamin D less than 20 ng/mL (1,2). The Endocrine Society went on to further define vitamin D insufficiency as a level between 21 and 29 ng/mL (2). 1. IOM ([place] of [employer]). 2010. 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 E89.0 Postprocedural hypothyroidis m R31.9 Hematuria, unspecified M13.0 Polyarthritis, unspecified E55.9 Vitamin D deficiency, unspec ified N39.41 Urge incontinence Office Visit 10/22/2019 11:15a [place] Aguilar Chavis, RP A E11.9 Type 2 diabetes mellitus without complications I10 Essential (primary) hyperten [place] E78.5 Hyperlipidemia, unspecified I48.20 Chronic atrial fibrillation, unspecified E89.0 Postprocedural hypothyroidis m R31.9 Hematuria, unspecified Z79.01 assisted (current) use of a nticoagulants M13.0 Polyarthritis, [...] uns pecified Aguilar Chavis, RPA 01/21/2020 Z79.01 assisted (current) use of antic oagulants Aguilar Chavis, RPA 01/21/2020 E89.0 Postprocedural hypothyroidism Aguilar Wright, RPA 01/21/2020 R31.9 Hematuria, unspecified Adan Chavis, RPA 01/21/2020 M13.0 Polyarthritis, unspecified [place] Aguilar burnett, RPA 01/21/2020 E55.9 Vitamin D deficiency, unspecifie d Aguilar Chavis, RPA 01/21/2020 N39.41 Urge incontinence Bruce Chavis, RPA 11/19/2019 Z79.01 oil heaterman (current) use of antic oagulants Harley Oreilly M.D. 10/22/2019 E11.9 Type 2 diabetes mellitus without complications Aguilar Chavis, RPA 10/22/2019 I10 Essential (primary) hypertension Aguilar Chavis, RPA 10/22/2019 E78.5 Hyperlipidemia, unspecified Aguilar Miranda, RPA 10/22/2019 I48.20 Chronic atrial fibrillation, uns pecified Aguilar Chavis, RPA 10/22/2019 E89.0 Postprocedural hypothyroidism Aguilar Wright, RPA 10/22/2019 R31.9 Hematuria, unspecified Adan Chavis, RPA 10/22/2019 Z79.01 oil heaterman (current) use of antic oagulants Aguilar Chavis, RPA 10/22/2019 M13.0 Polyarthritis, unspecified [place] Aguilar burnett, RPA 10/22/2019 E55.9 Vitamin D deficiency, unspecifie d Aguilar Chavis, [facility] 10/22/2019 N39.41 Urge incontinence Bruce Chavis, [facility] 09/19/2019 Z79.01 oil heaterman (current) use of antic oagulants Harley Oreilly M.D. 08/19/2019 Z79.01 oil heaterman (current) use of antic oagulants Aguilar Chavis RPA Plan of Treatment Future Appointment(s):* 04/23/2020 4:00 pm - Aguilar Chavis RPA at [place] [facility] Functional Status Description No Information Available Mental Status Description No Information Available Referrals Description No Information Available
--- OUTSIDE RECORDS SUMMARY | 2020-03-24 14:47 | CCD | Continuity of Care Document ---
Author Author Roselia CHAVIS RPA Organization Unknown Address [address] [facility] [address] [place] [address] Phone [phone] Care Team Providers Care Datacap Developer Name Role Phone [facility] Cardiology - Cardiovascular Disease AUTM [phone] Problems Active Problems Provider Date Urge incontinence [...] Hypocalcemia Aguilar Chavis, RPA Onset: 01/31/2018 Note: [facility] Labs 01/24/18 Anemia Aguilar Chavis, RPA Onset: 01/31/2018 Note: 01/24/18 [facility] Labs Social History Type Date Description [...] mouth every day 90tabs [facility]., [facility] Levothyroxine Sodium 175mcg Tablet s take [...] Tablets 1/2 by mouth every day () [facility] Cardiolog y Furosemide 40mg Tablets 1 po Am and 1/2 Afternoon() [facility] Cardiology History Medications Diflucan 100mg Tablets 2 by mouth stat, then one by mouth every day x 5 days 7tabs Quinton Guillen D.O., [facility] 12/31/2019 - 01/06/2020 Metformin HCL 500mg Tablets take one tablet by mouth every day with evening meal 90tabs Quinton Guillen D.O., FAAFP 10/23/2019 - 11/19/2019 Immunizations CPT Code Status Date Vaccine Lot # [id number] Refused 10/22/2019 Influenza Virus Vaccine, Quadrivalent, Slit Virus, Im Use 3Y & Up 19663 Refused 11/13/2017 Influenza Virus Vaccine, Quadrivalent, Slit Virus, Im Use 3Y & Up 02883 Refused 12/04/2014 Influenza Vaccin e (Fluzone) 3Yrs Of Age Or Older Medicare Plans Vital Signs Date Vital Result Comment 01/21/2020 4:11pm BP Systolic 128 mmHg BP Diastolic 72 mmHg Body Temperature 98.0 F Heart Rate 98 /min Respiratory Rate 18 /min Height 66.25 inches 5'6.25" Weight 240.00 lb [place] Body Weight 130 lb BMI (Body Mass Index) 38.4 kg/m2 O2 % BldC Oximetry 93 % 10/22/2019 11:12am BP Systolic 124 mmHg BP Diastolic 64 mmHg Body Temperature 97.2 F Heart Rate 61 /min Respiratory Rate 16 /min Height 66.25 inches 5'6.25" Weight 245.00 lb [place] Body Weight 130 lb BMI (Body Mass [...] eGFR 85 # Calc 6 eGFR Non-Afr. Samoan 74 # Calc 7 CBC With Differential 12/26/2019 [facility] (Interface) [phone] White Blood Count 21.5 10 High 4.0-10.0 [...] 36.0-66.0 Lymph % 3.2 % Low 24.0-44.0 [place] % 6.8 % High 0.0-5.0 Eos % 0.0 % Normal 0.0-3.0 Baso % 0.5 % Normal 0.0-1.0 Immature Granulocyte % 3.1 % High 0-3.0 Nucleated Red Blood Cell % 0.0 % Normal 0-0 Neutrophils # 18.6 10 High 1.5-8.5 Lymph # 0.7 10 Low 1.5-5.0 [place] # 1.5 10 High 0.0-0.8 Eos # 0.0 10 Normal 0.0-0.5 Baso # 0.1 10 Normal 0.0-0.2 Prothrombin Time/Inr 12/26/2019 [facility] ( Interface) [phone] Prothrombin Time 59.7 seconds High 12.5-14.3 Inr 6.67 Critical high 8 Laboratory test finding 12/26/2019 [facility] (Interface) [phone] D-Dimer Quant 830.13 ng/ml High <500 Comprehensive Met[facility] [phone] Glucose, Fasting 384 mg/dL High 70-100 Blood [...] 0.8 Low 1.2-2.2 Cardiac Marker Panel 12/26/2019 [facility]) [phone] CPK Creatine Phosphokinase 53 U/L Normal 26-19 2 CK-MB Value Mass < 1.0 NG/ML Normal <3.6 MB/CK Relative Index 1.89 Normal < Or =4 10 Troponin I < 0.02 NG/ML Normal < 0.10 11 Laboratory test finding 12/26/2019 [facility] (Interface) [phone] LDH Lactate Dehydrogenase 287 U/L High 84-246 Ferritin 601 NG/ML High 8-252 Lactic Acid Sepsis Protocol 2.9 mmol/L Critical high 0.4-2.0 12 PT & Aptt 12/18/2019 [facility] (I nterfa) [phone] Prothrombin Time 21.7 seconds High 12.5-14.3 Inr 1.84 Normal 13 Partial Thromboplastin Time 41.7 seconds High 24.2-38.5 Laboratory test finding 12/18/2019 [facility] (Interface) [phone] NT-Pro BNP 2260 pg/mL High <125 Lipase 77 U/L Normal 73-393 Thyroid Stimulating Hormone 0.451 uIU/ML Normal 0.358-3.740 Basic Metabolic Profile 12/18/2019 [facility] (Interface) [phone] Glucose, Fasting 129 mg/dL High 70-100 Blood [...] 9.2 mg/dL Normal 8.8-10.2 Liver Profile 12/18/2019 [facility] (I nterfa) [phone] Ast/Sgot 22 U/L Normal 7-37 Alt/SGPT 29 U/L Normal 12-78 Alkaline Phosphatase 101 U/L Normal 45-117 Bilirubin,Total 0.7 mg/dL Normal 0.2-1.0 Bilirubin,Direct 0.3 mg/dL High 0.0-0.2 Total Protein 7.8 GM/DL Normal 6.4-8.2 Albumin 4.1 GM/DL Normal 3.2-5.2 Albumin/Globulin Ratio 1.1 Low 1.2-2.2 Cardiac Marker Panel 12/18/2019 [facility] ( Interface) [phone] CPK Creatine Phosphokinase 40 U/L Normal 26-19 2 CK-MB Value Mass < 1.0 NG/ML Normal <3.6 MB/CK Relative Index 2.50 Normal < Or =4 15 Troponin I < 0.02 NG/ML Normal < 0.10 16 CBC With Differential [facility] [phone] White Blood Count 9.0 10 Normal 4.0-10.0 [...] 36.0-66.0 Lymph % 12.1 % Low 24.0-44.0 [place] % 9.8 % High 0.0-5.0 Eos % 0.0 % Normal 0.0-3.0 Baso % 0.2 % Normal 0.0-1.0 Immature Granulocyte % 0.7 % Normal 0-3.0 Nucleated Red Blood Cell % 0.0 % Normal 0-0 Neutrophils # 7.0 10 Normal 1.5-8.5 Lymph # 1.1 10 Low 1.5-5.0 [place] # 0.9 10 High 0.0-0.8 Eos # 0.0 10 Normal 0.0-0.5 Baso # 0.0 10 Normal 0.0-0.2 Respiratory Panel 12/18/2019 [facility] (I nterface) [phone] Respiratory Panel respiratory PCR <SEE NOTE> 17 [...] eGFR 85 # Calc 23 eGFR Non-Afr. Samoan 74 # Calc 24 Lipid Panel 10/22/2019 [...] plasma/anticoagulant ratio necessary for correct results. TEST: [id number] Prothrombin Time (PT) 5 NORMAL RANGES Age [...] HCT IS 5% LESS SOURCE FOR DATA: [employer] 1800 OPERATION MANUAL( AUTOMATED BLOOD COUNTS AND [...] Little GFR Left ESRD GFR <15 on REGULATORY COORDINATOR 10 DIAGNOSIS CRITERIA MMB ng/ml Relative Index (RI) NON-AMI < or = 5 N/A RUDOLPH ZONE > 5 < or = 4 AMI > 5 > 4 11 Troponin I Reference Interva l for Mailpile LOCI: 99th Percentile= 0.00-0.045 ng/ml Risk Stratification: [...] Little GFR Left ESRD GFR <15 on REGULATORY COORDINATOR 15 DIAGNOSIS CRITERIA MMB ng/ml Relative Index (RI) NON-AMI < or = 5 N/A RUDOLPH ZONE > 5 < or = 4 AMI > 5 > 4 16 Troponin I Reference Interva l for Mailpile LOCI: 99th Percentile= 0.00-0.045 ng/ml Risk Stratification: [...] deficiency has bee n defined by the [place] of Medicine and an Endocrine Society practice guideline as a level of serum 25-OH vitamin D less than 20 ng/mL (1,2). The Endocrine Society went on to further define vitamin D insufficiency as a level between 21 and 29 ng/mL (2). 1. IOM ([place] of [employer]). 2010. 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 E89.0 Postprocedural hypothyroidis m R31.9 Hematuria, unspecified M13.0 Polyarthritis, unspecified E55.9 Vitamin D deficiency, unspec ified N39.41 Urge incontinence Office Visit 10/22/2019 11:15a [place] [facility] Aguilar Chavis, RP A E11.9 Type 2 diabetes mellitus without complications I10 Essential (primary) hyperten [place] E78.5 Hyperlipidemia, unspecified I48.20 Chronic atrial fibrillation, unspecified E89.0 Postprocedural hypothyroidis m R31.9 Hematuria, unspecified Z79.01 USP (current) use of a nticoagulants M13.0 Polyarthritis, [...] uns pecified Aguilar Chavis, RPA 01/21/2020 Z79.01 USP (current) use of antic oagulants Aguilar Chavis, RPA 01/21/2020 E89.0 Postprocedural hypothyroidism Aguilar Wright, RPA 01/21/2020 R31.9 Hematuria, unspecified Adan Chavis, RPA 01/21/2020 M13.0 Polyarthritis, unspecified Hijollya Aguilar burnett, RPA 01/21/2020 E55.9 Vitamin D deficiency, unspecifie d Aguilar Chavis, RPA 01/21/2020 N39.41 Urge incontinence Bruce Chavis, RPA 11/19/2019 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 10/22/2019 E11.9 Type 2 diabetes mellitus without complications Aguilar Chavis, RPA 10/22/2019 I10 Essential (primary) hypertension Aguilar Chavis, RPA 10/22/2019 E78.5 Hyperlipidemia, unspecified Aguilar Miranda, RPA 10/22/2019 I48.20 Chronic atrial fibrillation, uns pecified Aguilar Chavis, RPA 10/22/2019 E89.0 Postprocedural hypothyroidism Aguilar Wright, RPA 10/22/2019 R31.9 Hematuria, unspecified Adan Chavis, RPA 10/22/2019 Z79.01 adjunct faculty for medical terminology (current) use of antic oagulants Aguilar Chavis, RPA 10/22/2019 M13.0 Polyarthritis, unspecified [place] Aguilar burnett, RPA 10/22/2019 E55.9 Vitamin D deficiency, unspecifie d Aguilar Chavis, [facility] 10/22/2019 N39.41 Urge incontinence Bruce Chavis, [facility] 09/19/2019 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 08/19/2019 Z79.01 adjunct faculty for medical terminology (current) use of antic oagulants Aguilar Chavis RPA Plan of Treatment Future Appointment(s):* 04/23/2020 4:00 pm - Aguilar Chavis RPA at [place] [facility] Functional Status Description No Information Available Mental Status Description No Information Available Referrals Description No Information Available
--- OUTSIDE RECORDS SUMMARY | 2020-03-24 14:47 | CCD | Continuity of Care Document ---
Author Author Roselia CHAVIS [facility] Organization Unknown Address [address] [place] [address] [address] [place] [address] Phone [phone] Care Team Providers Care Customer Service Voice Name Role Phone [facility] Cardiology - Cardiovascular Disease AUTM [phone] Problems Active Problems Provider Date Urge incontinence [...] Hypocalcemia Aguilar Chavis, RPA Onset: 01/31/2018 Note: [facility] Labs 01/24/18 Anemia Aguilar Chavis RPA Onset: 01/31/2018 Note: 01/24/18 [facility] Labs Social History Type Date Description Comments Sex Unknown ETOH Use alcohol use: never used Tobacco Use Start: Unknown Patient has never smoked Seat Belt/Car Seat always Allergies, Adverse Reactions, Alerts Active Allergies Reaction Severity Comments Date Fish Throat edema 02/20/2006 Penicillin 07/09/2015 Metformin diarrhea 11/21/2019 Inactive Allergies NKDA 04/28/2011 Medications Active Medications SIG Qnty Indications Ordering Provide r Date Diltiazem HCL 30mg Tablets 3 by mouth tid 270tabs Quinton Guillen D.O., FAAFP 01/27/2020 Januvia 100mg Tablets 1 by mouth every day 30tabs Quinton Guillen D.O., FAAFP Vitamin B Complex Tablets 1 by mouth every day 90tabs Quinton Guillen D.O., FAAFP Levothyroxine Sodium 175mcg Tablet s take 1 tablet by mouth once daily 90tabs Quinton Guillen D.O. , FAAFP 01/11/2012 Warfarin Sodium 4mg Tablets (05/29/19 alternate 4-3-3-4) 90tabs Quinton Guillen D.O., FAAFP 11/25/2010 Warfarin Sodium 3mg Tablets (05/29/19 alternate 4-3-3-4) 90tabs Quinton Guillen D.O., FAAFP 11/25/2010 Potassium Chloride CR 10Meq Capsul es ER 1 PO qd 30caps Unknown Losartan Potassium 25mg Tablets 1 by mouth every day Unknown Metoprolol Tartrate 100mg Tablets take two tablets by mouth in the Am, one tab in PM. Unkno wn Spironolactone 25mg Tablets 1/2 by mouth every day () [facility] Cardiolog y Furosemide 40mg Tablets 1 po Am and 1/2 Afternoon() [facility] Cardiology History Medications Diflucan 100mg Tablets 2 by mouth stat, then one by mouth every day x 5 days 7tabs Quinton Guillen D.O., FAAFP 12/31/2019 - 01/06/2020 Metformin HCL 500mg Tablets take one tablet by mouth every day with evening meal 90tabs Quinton Guillen D.O., FAAFP 10/23/2019 - 11/19/2019 Immunizations CPT Code Status Date Vaccine Lot # [id number] Refused 10/22/2019 Influenza Virus Vaccine, Quadrivalent, Slit Virus, Im Use 3Y & Up [id number] Refused 11/13/2017 Influenza Virus Vaccine, Quadrivalent, Slit Virus, Im Use 3Y & Up 13348 Refused 12/04/2014 Influenza Vaccin e (Fluzone) 3Yrs Of Age Or Older Medicare Plans Vital Signs Date Vital Result Comment 01/21/2020 4:11pm BP Systolic 128 mmHg BP Diastolic 72 mmHg Body Temperature 98.0 F Heart Rate 98 /min Respiratory Rate 18 /min Height 66.25 inches 5'6.25" Weight 240.00 lb [place] Body Weight 130 lb BMI (Body Mass Index) 38.4 kg/m2 O2 % BldC Oximetry 93 % 10/22/2019 11:12am BP Systolic 124 mmHg BP Diastolic 64 mmHg Body Temperature 97.2 F Heart Rate 61 /min Respiratory Rate 16 /min Height 66.25 inches 5'6.25" Weight 245.00 lb [place] Body Weight 130 lb BMI (Body Mass [...] eGFR 85 # Calc 6 eGFR Non-Afr. Ethiopian 74 # Calc 7 CBC With Differential 12/26/2019 [facility] (Interface) [phone] White Blood Count 21.5 10 High 4.0-10.0 [...] 36.0-66.0 Lymph % 3.2 % Low 24.0-44.0 [place] % 6.8 % High 0.0-5.0 Eos % 0.0 % Normal 0.0-3.0 Baso % 0.5 % Normal 0.0-1.0 Immature Granulocyte % 3.1 % High 0-3.0 Nucleated Red Blood Cell % 0.0 % Normal 0-0 Neutrophils # 18.6 10 High 1.5-8.5 Lymph # 0.7 10 Low 1.5-5.0 [place] # 1.5 10 High 0.0-0.8 Eos # 0.0 10 Normal 0.0-0.5 Baso # 0.1 10 Normal 0.0-0.2 Prothrombin Time/Inr 12/26/2019 [facility] ( Interface) [phone] Prothrombin Time 59.7 seconds High 12.5-14.3 Inr 6.67 Critical high 8 Laboratory test finding 12/26/2019 [facility] (Interface) [phone] D-Dimer Quant 830.13 ng/ml High <500 Comprehensive Metabolic Profil 12/26/2019 [facility] (Interface) [phone] Glucose, Fasting 384 mg/dL High 70-100 Blood [...] 0.8 Low 1.2-2.2 Cardiac Marker Panel 12/26/2019 [facility] ( Interface) [phone] CPK Creatine Phosphokinase 53 U/L Normal 26-19 2 CK-MB Value Mass < 1.0 NG/ML Normal <3.6 MB/CK Relative Index 1.89 Normal < Or =4 10 Troponin I < 0.02 NG/ML Normal < 0.10 11 Laboratory test finding 12/26/2019 [facility] (Interface) [phone] LDH Lactate Dehydrogenase 287 U/L High 84-246 Ferritin 601 NG/ML High 8-252 Lactic Acid Sepsis Protocol 2.9 mmol/L Critical high 0.4-2.0 12 PT & Aptt 12/18/2019 [facility] [phone] Prothrombin Time 21.7 seconds High 12.5-14.3 Inr 1.84 Normal 13 Partial Thromboplastin Time 41.7 seconds High 24.2-38.5 Laboratory test finding 12/18/2019 [facility] (Interface) [phone] NT-Pro BNP 2260 pg/mL High <125 Lipase 77 U/L Normal 73-393 Thyroid Stimulating Hormone 0.451 uIU/ML Normal 0.358-3.740 Basic Metabolic Profile 12/18/2019 [facility] (Interface) [phone] Glucose, Fasting 129 mg/dL High 70-100 Blood [...] 9.2 mg/dL Normal 8.8-10.2 Liver Profile 12/18/2019 [facility] ( [facility] [phone] Ast/Sgot 22 U/L Normal 7-37 Alt/SGPT 29 U/L Normal 12-78 Alkaline Phosphatase 101 U/L Normal 45-117 Bilirubin,Total 0.7 mg/dL Normal 0.2-1.0 Bilirubin,Direct 0.3 mg/dL High 0.0-0.2 Total Protein 7.8 GM/DL Normal 6.4-8.2 Albumin 4.1 GM/DL Normal 3.2-5.2 Albumin/Globulin Ratio 1.1 Low 1.2-2.2 Cardiac Marker Panel 12/18/2019 [facility] ( Interface) [phone] CPK Creatine Phosphokinase 40 U/L Normal 26-19 2 CK-MB Value Mass < 1.0 NG/ML Normal <3.6 MB/CK Relative Index 2.50 Normal < Or =4 15 Troponin I < 0.02 NG/ML Normal < 0.10 16 CBC With Differential 12/18/2019 [facility] (Interface) [phone] White Blood Count 9.0 10 Normal 4.0-10.0 [...] 36.0-66.0 Lymph % 12.1 % Low 24.0-44.0 Knox % 9.8 % High 0.0-5.0 Eos % 0.0 % Normal 0.0-3.0 Baso % 0.2 % Normal 0.0-1.0 Immature Granulocyte % 0.7 % Normal 0-3.0 Nucleated Red Blood Cell % 0.0 % Normal 0-0 Neutrophils # 7.0 10 Normal 1.5-8.5 Lymph # 1.1 10 Low 1.5-5.0 Knox # 0.9 10 High 0.0-0.8 Eos # 0.0 10 Normal 0.0-0.5 Baso # 0.0 10 Normal 0.0-0.2 Respiratory Panel 12/18/2019 [facility] (I nterface) [phone] Respiratory Panel respiratory PCR <SEE NOTE> 17 [...] eGFR 85 # Calc 23 eGFR Non-Afr. Ethiopian 74 # Calc 24 Lipid Panel 10/22/2019 [facility]/Inhouse Chol 169 mg/dL 0 - 200 Trig 169 mg/dL 40 - 200 HDL 62 mg/dL 45 - 65 LDL_C 73 Calc Low 75 - 129 Cho/HDL Ratio 2.7 CALC Prothrombin Time (PT) 09/19/2019 [facility] [place] Inr 2.9 High 0.8-1.2 25 Prothrombin Time 28.1 sec High 9.1-12.0 1 The specimen volume was insu fficient [...] plasma/anticoagulant ratio necessary for correct results. TEST: [id number] Prothrombin Time (PT) 5 NORMAL RANGES Age [...] HCT IS 5% LESS SOURCE FOR DATA: Yast 1800 OPERATION MANUAL( AUTOMATED BLOOD COUNTS AND [...] Little GFR Left ESRD GFR <15 on APPLICATION INTEGRATION ARCHITECT 10 DIAGNOSIS CRITERIA MMB ng/ml Relative Index (RI) NON-AMI < or = 5 N/A RUDOLPH ZONE > 5 < or = 4 AMI > 5 > 4 11 Troponin I Reference Interva l for [employer]Rhythm LOCI: 99th Percentile= 0.00-0.045 ng/ml Risk Stratification: [...] Little GFR Left ESRD GFR <15 on APPLICATION INTEGRATION ARCHITECT 15 DIAGNOSIS CRITERIA MMB ng/ml Relative Index (RI) NON-AMI < or = 5 N/A RUDOLPH ZONE > 5 < or = 4 AMI > 5 > 4 16 Troponin I Reference Interva l for [employer]Rhythm LOCI: 99th Percentile= 0.00-0.045 ng/ml Risk Stratification: [...] deficiency has bee n defined by the [place] of [employer] and an Endocrine Society practice guideline as a level of serum 25-OH vitamin D less than 20 ng/mL (1,2). The Endocrine Society went on to further define vitamin D insufficiency as a level between 21 and 29 ng/mL (2). 1. IOM ([place] of [employer]). 2010. Di etary reference intakes for calcium and D. [place]: The National Academies Press. 2. Deric MF, Gretel NC, Kelvin small MONTERO, et al. Evaluation, treatment, [...] Higher intensity therapeutic range 2.5 - 3.5 Procedures Description No Information Available Medical Devices Description No Information Available Encounters Type Date Location Provider Dx Diagnosis Office Visit 01/21/2020 4:00p [place] [facility] Aguilar Chavis, RP A R53.83 Other fatigue R53.1 Weakness R06.02 Shortness of breath E11.9 Type 2 diabetes mellitus wit hout complications I10 Essential (primary) hyperten [place] E78.5 Hyperlipidemia, unspecified I48.20 Chronic atrial fibrillation, unspecified Z79.01 skilled nursing (current) use of a nticoagulants E89.0 Postprocedural hypothyroidis m R31.9 Hematuria, unspecified M13.0 Polyarthritis, unspecified E55.9 Vitamin D deficiency, unspec ified N39.41 Urge incontinence Office Visit 10/22/2019 11:15a [facility] Aguilar Chavis RP A E11.9 Type 2 diabetes mellitus without complications I10 Essential (primary) hyperten [place] E78.5 Hyperlipidemia, unspecified I48.20 Chronic atrial fibrillation, unspecified E89.0 Postprocedural hypothyroidis m R31.9 Hematuria, unspecified Z79.01 skilled nursing (current) use of a nticoagulants M13.0 Polyarthritis, [...] uns pecified Aguilar Chavis, RPA 01/21/2020 Z79.01 skilled nursing (current) use of antic oagulants Aguilar Chavis, RPA 01/21/2020 E89.0 Postprocedural hypothyroidism Aguilar Wright, RPA 01/21/2020 R31.9 Hematuria, unspecified Adan Chavis, RPA 01/21/2020 M13.0 Polyarthritis, unspecified Hinma Aguilar burnett, RPA 01/21/2020 E55.9 Vitamin D deficiency, unspecifie d Aguilar Chavis, RPA 01/21/2020 N39.41 Urge incontinence Bruce Chavis, RPA 11/19/2019 Z79.01 skilled nursing (current) use of antic oagulants Harley Oreilly M.D. 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 Plan of Treatment Future Appointment(s):* 04/23/2020 4:00 pm - Aguilar Chavis, BRENNON at [facility] Functional Status Description No Information Available Mental Status Description No Information Available Referrals Description No Information Available
--- OUTSIDE RECORDS SUMMARY | 2020-03-24 14:48 | CCD | Continuity of Care Document ---
Author Author Roselia CHAVIS RPA Organization Unknown Address [address] [place] [address] Phone [phone] Care Team Providers Care Newswriter Name Role Phone [facility] Cardiology - Cardiovascular Disease AUTM [phone] Problems Active Problems Provider Date Urge incontinence [...] Hypocalcemia Aguilar Chavis, RPA Onset: 01/31/2018 Note: [facility] Labs 01/24/18 Anemia Aguilar Chavis, RPA Onset: 01/31/2018 Note: 01/24/18 [facility] Labs Social History Type Date [...] mouth every day 30tabs Quinton Guillen D.O., [facility] Vitamin B Complex Tablets 1 by mouth every day 90tabs Quinton Guillen D.O., [facility] Levothyroxine Sodium 175mcg Tablet s take 1 tablet by mouth once daily 90tabs Quinton Guillen D.O. , [facility] 01/11/2012 Warfarin Sodium 4mg Tablets (05/29/19 alternate 4-3-3-4) 90tabs Quinton Guillen D.O., [facility] 11/25/2010 Warfarin Sodium 3mg Tablets (05/29/19 alternate 4-3-3-4) 90tabs Quinton Guillen D.O., [facility] 11/25/2010 Potassium Chloride CR 10Meq Capsul es ER 1 PO qd 30caps Unknown Cardizem 60mg Tablets 1 tid Unknown Losartan Potassium 25mg Tablets 1 by mouth every day Unknown Metoprolol Tartrate 100mg Tablets take two tablets by mouth in the Am, one tab in PM. Unkno wn Spironolactone 25mg Tablets 1/2 by mouth every day () [facility] Cardiolog y Furosemide 40mg Tablets 1 po Am and 1/2 Afternoon() [facility] Cardiology History Medications Metformin HCL 500mg Tablets take one tablet by mouth every day with evening meal 90tabs Quinton Guillen D.O., [facility] 10/23/2019 - 11/19/2019 Immunizations CPT Code Status Date Vaccine Lot # [id number] Refused 10/22/2019 Influenza Virus Vaccine, Quadrivalent, Slit Virus, Im Use 3Y & Up [id number] Refused 11/13/2017 Influenza Virus Vaccine, Quadrivalent, Slit Virus, Im Use 3Y & Up 62490 Refused 12/04/2014 Influenza Vaccin e (Fluzone) 3Yrs Of Age Or Older Medicare Plans Vital Signs Date Vital Result Comment 10/22/2019 11:12am BP Systolic 124 mmHg BP Diastolic 64 mmHg Body Temperature 97.2 F Heart Rate 61 /min Respiratory Rate 16 /min Height 66.25 inches 5'6.25" Weight 245.00 lb [place] Body Weight 130 lb BMI (Body Mass Index) 39.2 kg/m2 O2 % BldC Oximetry 96 % 07/16/2019 11:22am BP Systolic 108 mmHg BP Diastolic 64 mmHg Body Temperature 97.8 F Heart Rate 74 /min Respiratory Rate 16 /min Height 66.25 inches 5'6.25" Weight 233.00 lb [place] Body Weight 130 lb BMI (Body Mass Index) 37.3 kg/m2 O2 % BldC Oximetry 96 % Results Test Acquired Date Facility Test Result H/L Range Note CBC With Differential 12/26/2019 [facility] (Interface) [phone] White Blood Count 21.5 10 High 4.0-10.0 [...] 36.0-66.0 Lymph % 3.2 % Low 24.0-44.0 Sac % 6.8 % High 0.0-5.0 Eos % 0.0 % Normal 0.0-3.0 Baso % 0.5 % Normal 0.0-1.0 Immature Granulocyte % 3.1 % High 0-3.0 Nucleated Red Blood Cell % 0.0 % Normal 0-0 Neutrophils # 18.6 10 High 1.5-8.5 Lymph # 0.7 10 Low 1.5-5.0 Sac # 1.5 10 High 0.0-0.8 Eos # 0.0 10 Normal 0.0-0.5 Baso # 0.1 10 Normal 0.0-0.2 Respiratory Panel 12/18/2019 [facility]) [phone] Respiratory Panel respiratory PCR <SEE NOTE> 1 CBC With Differential 12/18/2019 [facility]) [phone] White Blood Count 9.0 10 Normal 4.0-10.0 [...] 36.0-66.0 Lymph % 12.1 % Low 24.0-44.0 Sac % 9.8 % High 0.0-5.0 Eos % 0.0 % Normal 0.0-3.0 Baso % 0.2 % Normal 0.0-1.0 Immature Granulocyte % 0.7 % Normal 0-3.0 Nucleated Red Blood Cell % 0.0 % Normal 0-0 Neutrophils # 7.0 10 Normal 1.5-8.5 Lymph # 1.1 10 Low 1.5-5.0 Sac # 0.9 10 High 0.0-0.8 Eos # 0.0 10 Normal 0.0-0.5 Baso # 0.0 10 Normal 0.0-0.2 Cardiac Marker Panel 12/18/2019 [facility]) [phone] CPK Creatine Phosphokinase 40 U/L Normal 26-19 2 CK-MB Value Mass < 1.0 NG/ML Normal <3.6 MB/CK Relative Index 2.50 Normal < Or =4 2 Troponin I < 0.02 NG/ML Normal < 0.10 3 Liver Profile 12/18/2019 [facility] [phone] Ast/Sgot 22 U/L Normal 7-37 Alt/SGPT 29 U/L Normal 12-78 Alkaline Phosphatase 101 U/L Normal 45-117 Bilirubin,Total 0.7 mg/dL Normal 0.2-1.0 Bilirubin,Direct 0.3 mg/dL High 0.0-0.2 Total Protein 7.8 GM/DL Normal 6.4-8.2 Albumin 4.1 GM/DL Normal 3.2-5.2 Albumin/Globulin Ratio 1.1 Low 1.2-2.2 Basic Metabolic Profile 12/18/2019 [facility] (Interface) [phone] Glucose, Fasting 129 mg/dL High 70-100 Blood Urea Nitrogen 10 mg/dL Normal 7-18 Creatinine For GFR 0.87 mg/dL Normal 0.55-1.30 Glomerular Filtration Rate > 60.0 Normal >39 4 Sodium Level 138 mEq/L Normal 136-145 Potassium Serum 4.2 mEq/L Normal 3.5-5.1 Chloride Level 106 mEq/L Normal 98-107 Carbon Dioxide Level 25 mEq/L Normal 21-32 Anion Gap 7 mEq/L Low 8-16 Calcium Level 9.2 mg/dL Normal 8.8-10.2 Laboratory test finding 12/18/2019 [facility] (Interface) [phone] NT-Pro BNP 2260 pg/mL High <125 Lipase 77 U/L Normal 73-393 Thyroid Stimulating Hormone 0.451 uIU/ML Normal 0.358-3.740 PT & Aptt 12/18/2019 [facility] (I nterface) [phone] Prothrombin Time 21.7 seconds High 12.5-14.3 Inr 1.84 Normal 5 Partial Thromboplastin Time 41.7 seconds High 24.2-38.5 Prothrombin Time (PT) 11/19/2019 [facility] [place] Inr 2.6 6 Prothrombin Time 25.9 seconds High 11.7-14.5 Lipid Panel 10/22/2019 [facility]Inhouse Chol 169 mg/dL 0 - 200 7 Trig 169 mg/dL 40 - 200 HDL 62 mg/dL 45 - 65 LDL_C 73 Calc Low 75 - 129 Cho/HDL Ratio 2.7 CALC CMP 10/22/2019 [facility]Inhouse Glu 206 mg/dL High 70 - 110 BUN 20 mg/dL 8 - 23 Creat [...] Gap 17 mmol/L eGFR 85 # Calc 8 eGFR Non-Afr. Tanzanian 74 # Calc 9 Laboratory test finding 10/22/2019 [facility] TSH 1.116 ulU/mL 0.60 - 4.8 Laboratory test finding 10/22/2019 [facility] [place] Vitamin D, 25-Hydroxy 33.7 ng/mL 30.0-100.0 10 Hemoglobin A1c 10/22/2019 [facility] [place] Hemoglobin A1c 7.2 % High 4.8-5.6 11 Prothrombin Time (PT) 10/22/2019 [facility] [place] Inr 2.2 12 Prothrombin Time 23.0 seconds High 11.7-14.5 Prothrombin Time (PT) 09/19/2019 [facility] [place] Inr 2.9 High 0.8-1.2 13 Prothrombin Time 28.1 sec High 9.1-12.0 Prothrombin Time (PT) 08/19/2019 [facility] [place] Inr 2.6 14 Prothrombin Time 26.1 seconds Off scale high 11.7-14.5 15 Prothrombin Time (PT) 07/16/2019 [facility] [place] Inr 2.7 16 Prothrombin Time 27.2 seconds Off scale high 11.7-14.5 17 1 respiratory PCR panel detect s Influenza A [...] SARS-CoV-2 (COVID19) ORGANISM 1: SARS-CoV-2 (COVID 19) 2 DIAGNOSIS CRITERIA MMB ng/ml Relative Index (RI) NON-AMI < or = 5 N/A RUDOLPH ZONE > 5 < or = 4 AMI > 5 > 4 3 Troponin I Reference Interva l for Local Labs [place] LOCI: 99th Percentile= 0.00-0.045 ng/ml Risk Stratification: <= 0.10 ng/ml Decreased Risk for Adverse Clinical Events. 0.10-1.50 ng/ml Increased Risk for Adv erse Clinical Events. Evaluation of additional criterion and/or repeat testing in 2-6 hours is suggested to rule out myocardial damage. >= 1.50 ng/ml Indicative of Myocardial Injury. 4 Units are mL/min/1.73 m2 Chronic Kidney Disease Staging per NKF: Stage I & II GFR >=60 Normal to Mildly Decreased Stage III GFR 30-59 Moderately Decreased Stage IV GFR 15-29 Severely Decreased Stage V GFR <15 Very Little GFR Left ESRD GFR <15 on CAN CRIMPER 5 THERAPUTIC HUMAN INR VALUES INDICATIONS NORMAL RANGES PROPHYLAXIS/TREATMENT OF: VENOUS THROMBOSIS 2.0-3.0 PULMONARY EMBOLISM 2.0-3.0 PREVENTION OF SYSTEMIC EMBOLISM FROM: TISSUE HEART VALVES 2.0-3.0 ACUTE MYOCARDIAL INFARCTION 2.0-3.0 VALVULAR HEART DISEASE 2.0-3.0 ATRIAL FIBRILLATION 2.0-3.0 MECHANICAL VALVES(HIGH RISK) 2.5-3.5 RECURRENT MYOCARDIAL INFARCTION 2.5-3.5 6 INTERNATIONAL NORMALIZED RAT IO(INR) INDICATIONS INR RANGE [...] WITH AN UNACCEPTABLY HIGH RISK OF BLEEDING. 7 CHRONIC KIDNEY DISEASE STAGI NG PER NKF: [...] ADOLESCENTS REPRESENTS INDIVIDUALA AGED 2-19 YEARS EXCLUSIVE. 8 CKD-EPI 9 CKD-EPI 10 Vitamin D deficiency has bee n defined by the [place] of [employer] and an Endocrine Society practice guideline as a level of serum 25-OH vitamin D less than 20 ng/mL (1,2). The Endocrine Society went on to further define vitamin D insufficiency as a level between 21 and 29 ng/mL (2). 1. IOM ([place] [employer]). 2010. Di etary reference intakes for calcium and D. [place]: The National Academies Press. 2. Deric MF, Gretel NC, Kelvin small MONTERO, et al. Evaluation, treatment, and prevention of vitamin D deficiency: an Endocrine Society clinical practice guideline. JCEM. 2010; 96(7):1911-30. 11 Prediabetes: 5.7 - 6.4 Diabetes: >6.4 Glycemic control for adults with diabetes: <7.0 12 INTERNATIONAL NORMALIZED RAT IO(INR) INDICATIONS INR RANGE [...] WITH AN UNACCEPTABLY HIGH RISK OF BLEEDING. 13 Reference interval is for no n-anticoagulated patients. Suggested INR therapeutic range for Vitamin K antagonist therapy: Standard Dose (moderate intensity therapeutic range): 2.0 - 3.0 Higher intensity therapeutic range 2.5 - 3.5 14 INTERNATIONAL NORMALIZED RAT IO(INR) INDICATIONS INR RANGE [...] WITH AN UNACCEPTABLY HIGH RISK OF BLEEDING. 15 Confirmed on reassay 16 INTERNATIONAL NORMALIZED RAT IO(INR) INDICATIONS INR RANGE [...] WITH AN UNACCEPTABLY HIGH RISK OF BLEEDING. 17 Confirmed on reassay Procedures Description No Information Available Medical Devices Description No Information Available Encounters Type Date Location Provider Dx Diagnosis Office Visit 10/22/2019 11:15a [place] [facility] Aguilar Chavis, RP A E11.9 Type 2 diabetes mellitus without complications I10 Essential (primary) hyperten [place] E78.5 Hyperlipidemia, unspecified I48.20 Chronic atrial fibrillation, unspecified E89.0 Postprocedural hypothyroidis m R31.9 Hematuria, unspecified Z79.01 manager terminal (current) use of a nticoagulants M13.0 Polyarthritis, unspecified E55.9 Vitamin D deficiency, unspec ified N39.41 Urge incontinence Office Visit 07/16/2019 11:30a [place] [facility] Aguilar Chavis, RP A Z00.01 Encounter for general adult medical exam w abnormal findings E11.9 Type 2 diabetes mellitus wit hout complications I10 Essential (primary) hyperten [place] E78.5 Hyperlipidemia, unspecified I48.20 Chronic atrial fibrillation, unspecified Z79.01 manager terminal (current) use of a nticoagulants E89.0 Postprocedural hypothyroidis m R31.9 Hematuria, unspecified M13.0 Polyarthritis, unspecified E55.9 Vitamin D deficiency, unspec ified N39.41 Urge incontinence Assessments Date Code Description Provider 11/19/2019 Z79.01 manager terminal (current) use of antic oagulants Harley Oreilly M.D. 10/22/2019 E11.9 Type 2 diabetes mellitus without complications Aguilar Chavis, RPA 10/22/2019 I10 Essential (primary) hypertension Aguilar Chavis, RPA 10/22/2019 E78.5 Hyperlipidemia, unspecified Aguilar Miranda, RPA 10/22/2019 I48.20 Chronic atrial fibrillation, uns pecified Aguilar Chavis, RPA 10/22/2019 E89.0 Postprocedural hypothyroidism Aguilar Wright, RPA 10/22/2019 R31.9 Hematuria, unspecified Adan Chavis, RPA 10/22/2019 Z79.01 manager terminal (current) use of antic oagulants Aguilar Chavis, RPA 10/22/2019 M13.0 Polyarthritis, unspecified Aguilar Beck, RPA 10/22/2019 E55.9 Vitamin D deficiency, unspecifie d Aguilar Chavis, RPA 10/22/2019 N39.41 Urge incontinence Bruce Chavis, RPA 09/19/2019 Z79.01 manager terminal (current) use of antic oagulants Harley Oreilly M.D. 08/19/2019 Z79.01 [facility] (current) use of antic oagulants Aguilar Chavis, RPA 07/16/2019 Z00.01 Encounter for [facility] adult medical examination with abnormal findings Aguilar Chavis, RPA 07/16/2019 E11.9 Type 2 diabetes mellitus without complications Aguilar Chavis, RPA 07/16/2019 I10 Essential (primary) hypertension Aguilar Chavis, RPA 07/16/2019 E78.5 Hyperlipidemia, unspecified Aguilar Miranda, RPA 07/16/2019 I48.20 Chronic atrial fibrillation, uns pecified Aguilar Chavis, RPA 07/16/2019 Z79.01 manager terminal (current) use of antic oagulants Aguilar Chavis, RPA 07/16/2019 E89.0 Postprocedural hypothyroidism Aguilar Wright, RPA 07/16/2019 R31.9 Hematuria, unspecified Adan Chavis, RPA 07/16/2019 M13.0 Polyarthritis, unspecified Aguilar Beck, RPA 07/16/2019 E55.9 Vitamin D deficiency, unspecifie d Aguilar Chavis, RPA 07/16/2019 N39.41 Urge incontinence Bruce Chavis RPA Plan of Treatment Future Appointment(s):* 01/21/2020 10:40 am - Aguilar Chavis RPA at [place] [facility] Functional Status Description No Information Available Mental Status Description No Information Available Referrals Description No Information Available
--- OUTSIDE RECORDS SUMMARY | 2020-03-24 14:48 | CCD | Continuity of Care Document ---
Author Author Roselia CHAVIS RPA Organization Unknown Address [address] [facility] [address] [place] [address] Phone [phone] Care Team Providers Care Food Manager Name Role Phone [facility] Cardiology - Cardiovascular Disease AUTM [phone] Problems Active Problems Provider Date Urge incontinence [...] Aguilar Chavis, RPA Onset: 01/31/2018 Note: [facility] 01/24/18 Anemia Aguilar Chavis, RPA Onset: 01/31/2018 Note: 01/24/18 [facility] Social History Type Date [...] mouth every day 30tabs Quinton Guillen D.O., [facility] Vitamin B Complex Tablets 1 by mouth every day 90tabs Quinton Guillen D.O., [facility] Levothyroxine Sodium 175mcg Tablet s take 1 tablet by mouth once daily 90tabs [facility] , [facility] 01/11/2012 Warfarin Sodium 4mg Tablets (05/29/19 alternate 4-3-3-4) 90tabs Quinton Guillen D.O., [facility] 11/25/2010 Warfarin Sodium 3mg Tablets (05/29/19 alternate 4-3-3-4) 90tabs Quinton Guillen D.O., [facility] 11/25/2010 Potassium Chloride CR 10Meq Capsul es ER 1 PO qd 30caps Unknown Cardizem 60mg Tablets 1 tid Unknown Losartan Potassium 25mg Tablets 1 by mouth every day Unknown Metoprolol Tartrate 100mg Tablets take two tablets by mouth in the Am, one tab in PM. Unkno wn Spironolactone 25mg Tablets 1/2 by mouth every day () [facility] Cardiolog y Furosemide 40mg Tablets 1 po Am and 1/2 Afternoon() [facility] Cardiology History Medications Metformin HCL 500mg Tablets take one tablet by mouth every day with evening meal 90tabs Quinton Guillen D.O., [facility] 10/23/2019 - 11/19/2019 Immunizations CPT Code Status Date Vaccine Lot # [id number] Refused 10/22/2019 Influenza Virus Vaccine, Quadrivalent, Slit Virus, Im Use 3Y & Up [id number] Refused 11/13/2017 Influenza Virus Vaccine, Quadrivalent, Slit Virus, Im Use 3Y & Up 83625 Refused 12/04/2014 Influenza Vaccin e (Fluzone) 3Yrs Of Age Or Older Medicare Plans Vital Signs Date Vital Result Comment 10/22/2019 11:12am BP Systolic 124 mmHg BP Diastolic 64 mmHg Body Temperature 97.2 F Heart Rate 61 /min Respiratory Rate 16 /min Height 66.25 inches 5'6.25" Weight 245.00 lb [place] Body Weight 130 lb BMI (Body Mass Index) 39.2 kg/m2 O2 % BldC Oximetry 96 % 07/16/2019 11:22am BP Systolic 108 mmHg BP Diastolic 64 mmHg Body Temperature 97.8 F Heart Rate 74 /min Respiratory Rate 16 /min Height 66.25 inches 5'6.25" Weight 233.00 lb [place] Body Weight 130 lb BMI (Body Mass Index) 37.3 kg/m2 O2 % BldC Oximetry 96 % Results Test Acquired Date Facility Test Result H/L Range Note CBC With Differential 12/26/2019 [facility] (Interface) [phone] White Blood Count 21.5 10 High 4.0-10.0 [...] 36.0-66.0 Lymph % 3.2 % Low 24.0-44.0 [place] % 6.8 % High 0.0-5.0 Eos % 0.0 % Normal 0.0-3.0 Baso % 0.5 % Normal 0.0-1.0 Immature Granulocyte % 3.1 % High 0-3.0 Nucleated Red Blood Cell % 0.0 % Normal 0-0 Neutrophils # 18.6 10 High 1.5-8.5 Lymph # 0.7 10 Low 1.5-5.0 [place] # 1.5 10 High 0.0-0.8 Eos # 0.0 10 Normal 0.0-0.5 Baso # 0.1 10 Normal 0.0-0.2 Prothrombin Time/Inr 12/26/2019 [facility] ( Interface) [phone] Prothrombin Time 59.7 seconds High 12.5-14.3 Inr 6.67 Critical high 1 Laboratory test finding 12/26/2019 [facility] (Interface) [phone] D-Dimer Quant 830.13 ng/ml High <500 Comprehensive Metabolic Profil 12/26/2019 [facility] (Interface) [phone] Glucose, Fasting 384 mg/dL High 70-100 Blood Urea Nitrogen 30 mg/dL High 7-18 Creatinine For GFR 0.89 mg/dL Normal 0.55-1.30 Glomerular Filtration Rate > 60.0 Normal >39 2 Sodium Level 135 mEq/L Low 136-145 Potassium [...] 0.8 Low 1.2-2.2 Cardiac Marker Panel 12/26/2019 [facility] ( [facility]) [phone] CPK Creatine Phosphokinase 53 U/L Normal 26-19 2 CK-MB Value Mass < 1.0 NG/ML Normal <3.6 MB/CK Relative Index 1.89 Normal < Or =4 3 Troponin I < 0.02 NG/ML Normal < 0.10 4 Laboratory test finding 12/26/2019 [facility] (Interface) [phone] LDH Lactate Dehydrogenase 287 U/L High 84-246 Ferritin 601 NG/ML High 8-252 Lactic Acid Sepsis Protocol 2.9 mmol/L Critical high 0.4-2.0 5 PT & Aptt 12/18/2019 [facility]) [phone] Prothrombin Time 21.7 seconds High 12.5-14.3 Inr 1.84 Normal 6 Partial Thromboplastin Time 41.7 seconds High 24.2-38.5 Laboratory test finding 12/18/2019 [facility] ([facility]) [phone] NT-Pro BNP 2260 pg/mL High <125 Lipase 77 U/L Normal 73-393 Thyroid Stimulating Hormone 0.451 uIU/ML Normal 0.358-3.740 Basic Metabolic Profile 12/18/2019 [facility] ([facility]) [phone] Glucose, Fasting 129 mg/dL High 70-100 Blood Urea Nitrogen 10 mg/dL Normal 7-18 Creatinine For GFR 0.87 mg/dL Normal 0.55-1.30 Glomerular Filtration Rate > 60.0 Normal >39 7 Sodium Level 138 mEq/L Normal 136-145 Potassium Serum 4.2 mEq/L Normal 3.5-5.1 Chloride Level 106 mEq/L Normal 98-107 Carbon Dioxide Level 25 mEq/L Normal 21-32 Anion Gap 7 mEq/L Low 8-16 Calcium Level 9.2 mg/dL Normal 8.8-10.2 Liver Profile 12/18/2019 [facility]) [phone] Ast/Sgot 22 U/L Normal 7-37 Alt/SGPT 29 U/L Normal 12-78 Alkaline Phosphatase 101 U/L Normal 45-117 Bilirubin,Total 0.7 mg/dL Normal 0.2-1.0 Bilirubin,Direct 0.3 mg/dL High 0.0-0.2 Total Protein 7.8 GM/DL Normal 6.4-8.2 Albumin 4.1 GM/DL Normal 3.2-5.2 Albumin/Globulin Ratio 1.1 Low 1.2-2.2 Cardiac Marker Panel 12/18/2019 [facility]) [phone] CPK Creatine Phosphokinase 40 U/L Normal 26-19 2 CK-MB Value Mass < 1.0 NG/ML Normal <3.6 MB/CK Relative Index 2.50 Normal < Or =4 8 Troponin I < 0.02 NG/ML Normal < 0.10 9 CBC With Differential 12/18/2019 [facility]) [phone] White Blood Count 9.0 10 Normal 4.0-10.0 [...] 36.0-66.0 Lymph % 12.1 % Low 24.0-44.0 Bladen % 9.8 % High 0.0-5.0 Eos % 0.0 % Normal 0.0-3.0 Baso % 0.2 % Normal 0.0-1.0 Immature Granulocyte % 0.7 % Normal 0-3.0 Nucleated Red Blood Cell % 0.0 % Normal 0-0 Neutrophils # 7.0 10 Normal 1.5-8.5 Lymph # 1.1 10 Low 1.5-5.0 Bladen # 0.9 10 High 0.0-0.8 Eos # 0.0 10 Normal 0.0-0.5 Baso # 0.0 10 Normal 0.0-0.2 Respiratory Panel 12/18/2019 [facility] (I nterface) [phone] Respiratory Panel respiratory PCR <SEE NOTE> 10 Prothrombin Time (PT) 11/19/2019 [facility] Inr 2.6 11 Prothrombin Time 25.9 seconds High 11.7-14.5 Prothrombin Time (PT) 10/22/2019 [facility] Inr 2.2 12 Prothrombin Time 23.0 seconds High 11.7-14.5 Hemoglobin A1c 10/22/2019 [facility] Hemoglobin A1c 7.2 % High 4.8-5.6 13 Laboratory test finding 10/22/2019 [facility] Vitamin D, 25-Hydroxy 33.7 ng/mL 30.0-100.0 14 Laboratory test finding 10/22/2019 [facility] TSH 1.116 ulU/mL 0.60 - 4.8 CMP 10/22/2019 [facility] Glu 206 mg/dL High 70 - 110 15 BUN 20 mg/dL 8 - 23 Creat [...] Gap 17 mmol/L eGFR 85 # Calc 16 eGFR Non-Afr. Romanian 74 # Calc 17 Lipid Panel 10/22/2019 [facility] Chol 169 mg/dL 0 - 200 Trig 169 mg/dL 40 - 200 HDL 62 mg/dL 45 - 65 LDL_C 73 Calc Low 75 - 129 Cho/HDL Ratio 2.7 CALC Prothrombin Time (PT) 09/19/2019 [facility] Inr 2.9 High 0.8-1.2 18 Prothrombin Time 28.1 sec High 9.1-12.0 Prothrombin Time (PT) 08/19/2019 [facility] Inr 2.6 19 Prothrombin Time 26.1 seconds Off scale high 11.7-14.5 20 Prothrombin Time (PT) 07/16/2019 [facility] Inr 2.7 21 Prothrombin Time 27.2 seconds Off scale high 11.7-14.5 22 1 THERAPUTIC HUMAN INR VALUES INDICATIONS NORMAL RANGES PROPHYLAXIS/TREATMENT OF: VENOUS THROMBOSIS 2.0-3.0 PULMONARY EMBOLISM 2.0-3.0 PREVENTION OF SYSTEMIC EMBOLISM FROM: TISSUE HEART VALVES 2.0-3.0 ACUTE MYOCARDIAL INFARCTION 2.0-3.0 VALVULAR HEART DISEASE 2.0-3.0 ATRIAL FIBRILLATION 2.0-3.0 MECHANICAL VALVES(HIGH RISK) 2.5-3.5 RECURRENT MYOCARDIAL INFARCTION 2.5-3.5 2 Units are mL/min/1.73 m2 Chronic Kidney Disease Staging per NKF: Stage I & II GFR >=60 Normal to Mildly Decreased Stage III GFR 30-59 Moderately Decreased Stage IV GFR 15-29 Severely Decreased Stage V GFR <15 Very Little GFR Left ESRD GFR <15 on TRACK MANAGER 3 DIAGNOSIS CRITERIA MMB ng/ml Relative Index (RI) NON-AMI < or = 5 N/A RUDOLPH ZONE > 5 < or = 4 AMI > 5 > 4 4 Troponin I Reference Interva l for [facility] [employer] LOCI: 99th Percentile= 0.00-0.045 ng/ml Risk Stratification: <= 0.10 ng/ml Decreased Risk for Adverse Clinical Events. 0.10-1.50 ng/ml Increased Risk for Adv erse Clinical Events. Evaluation of additional criterion and/or repeat testing in 2-6 hours is suggested to rule out myocardial damage. >= 1.50 ng/ml Indicative of Myocardial Injury. 5 Y/N query for Sepsis Lactate Rule: Y 6 THERAPUTIC HUMAN INR VALUES INDICATIONS NORMAL RANGES PROPHYLAXIS/TREATMENT OF: VENOUS THROMBOSIS 2.0-3.0 PULMONARY EMBOLISM 2.0-3.0 PREVENTION OF SYSTEMIC EMBOLISM FROM: TISSUE HEART VALVES 2.0-3.0 ACUTE MYOCARDIAL INFARCTION 2.0-3.0 VALVULAR HEART DISEASE 2.0-3.0 ATRIAL FIBRILLATION 2.0-3.0 MECHANICAL VALVES(HIGH RISK) 2.5-3.5 RECURRENT MYOCARDIAL INFARCTION 2.5-3.5 7 Units are mL/min/1.73 m2 Chronic Kidney Disease Staging per NKF: Stage I & II GFR >=60 Normal to Mildly Decreased Stage III GFR 30-59 Moderately Decreased Stage IV GFR 15-29 Severely Decreased Stage V GFR <15 Very Little GFR Left ESRD GFR <15 on TRACK MANAGER 8 DIAGNOSIS CRITERIA MMB ng/ml Relative Index (RI) NON-AMI < or = 5 N/A RUDOLPH ZONE > 5 < or = 4 AMI > 5 > 4 9 Troponin I Reference Interva l for [facility] LOCI: 99th Percentile= 0.00-0.045 ng/ml Risk Stratification: <= 0.10 ng/ml Decreased Risk for Adverse Clinical Events. 0.10-1.50 ng/ml Increased Risk for Adv erse Clinical Events. Evaluation of additional criterion and/or repeat testing in 2-6 hours is suggested to rule out myocardial damage. >= 1.50 ng/ml Indicative of Myocardial Injury. 10 respiratory PCR panel detect s Influenza A [...] SARS-CoV-2 (COVID19) ORGANISM 1: SARS-CoV-2 (COVID 19) 11 INTERNATIONAL NORMALIZED RAT IO(INR) INDICATIONS INR RANGE [...] WITH AN UNACCEPTABLY HIGH RISK OF BLEEDING. 12 INTERNATIONAL NORMALIZED RAT IO(INR) INDICATIONS INR [...] AN UNACCEPTABLY HIGH RISK OF BLEEDING. 13 Prediabetes: 5.7 - 6.4 Diabetes: >6.4 Glycemic control for adults with diabetes: <7.0 14 Vitamin D deficiency has bee n defined by the [place] of Medicine and an Endocrine Society practice guideline as a level of serum 25-OH vitamin D less than 20 ng/mL (1,2). The Endocrine Society went on to further define vitamin D insufficiency as a level between 21 and 29 ng/mL (2). 1. IOM ([place] of Medicine). 2010. Di etary reference intakes for calcium and D. [place]: The National Academies Press. 2. Deric MF, Gretel WILLIAMSON, Kelvin small MONTERO, et al. Evaluation, treatment, and prevention of vitamin D deficiency: an Endocrine Society clinical practice guideline. JCEM. 2010; 96(7):1911-30. 15 CHRONIC KIDNEY DISEASE STAGI NG PER NKF: [...] ADOLESCENTS REPRESENTS INDIVIDUALA AGED 2-19 YEARS EXCLUSIVE. 16 CKD-EPI 17 CKD-EPI 18 Reference interval is for no n-anticoagulated patients. Suggested INR therapeutic range for Vitamin K antagonist therapy: Standard Dose (moderate intensity therapeutic range): 2.0 - 3.0 Higher intensity therapeutic range 2.5 - 3.5 19 INTERNATIONAL NORMALIZED RAT IO(INR) INDICATIONS INR [...] AN UNACCEPTABLY HIGH RISK OF BLEEDING. 20 Confirmed on reassay 21 INTERNATIONAL NORMALIZED RAT IO(INR) INDICATIONS INR RANGE [...] WITH AN UNACCEPTABLY HIGH RISK OF BLEEDING. 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 M13.0 Polyarthritis, unspecified E55.9 Vitamin D deficiency, unspec ified N39.41 Urge incontinence Office Visit 07/16/2019 11:30a [facility] Aguilar Chavis, ENRRIQUE A Z00.01 Encounter for general adult medical exam w abnormal findings E11.9 Type 2 diabetes mellitus wit hout complications I10 Essential (primary) hyperten [place] E78.5 Hyperlipidemia, unspecified I48.20 Chronic atrial fibrillation, unspecified Z79.01 terminal operator (current) use of a nticoagulants E89.0 Postprocedural hypothyroidis m R31.9 Hematuria, unspecified M13.0 Polyarthritis, unspecified E55.9 Vitamin D deficiency, unspec ified N39.41 Urge incontinence Assessments Date Code Description Provider 11/19/2019 Z79.01 terminal operator (current) use of antic oagulants Harley Oreilly M.D. 10/22/2019 E11.9 Type 2 diabetes mellitus without complications Aguilar Chavis, RPA 10/22/2019 I10 Essential (primary) hypertension Aguilar Chavis, RPA 10/22/2019 E78.5 Hyperlipidemia, unspecified Aguilar Miranda, RPA 10/22/2019 I48.20 Chronic atrial fibrillation, uns pecified Aguilar Chavis, RPA 10/22/2019 E89.0 Postprocedural hypothyroidism Aguilar Wright, RPA 10/22/2019 R31.9 Hematuria, unspecified Partha, M mandeep Yeager, RPA 10/22/2019 Z79.01 retirement (current) use of antic oagulants Aguilar Chavis, RPA 10/22/2019 M13.0 Polyarthritis, unspecified Hinma Aguilar burnett, RPA 10/22/2019 E55.9 Vitamin D deficiency, unspecifie d Aguilar Chavis, RPA 10/22/2019 N39.41 Urge incontinence Bruce Chavis, RPA 09/19/2019 Z79.01 retirement (current) use of antic oagulants Harley Oreilly M.D. 08/19/2019 Z79.01 retirement (current) use of antic oagulants Aguilar Chavis, RPA 07/16/2019 Z00.01 Encounter for genera l adult medical examination with abnormal findings Aguilar Chavis, RPA 07/16/2019 E11.9 Type 2 diabetes mellitus without complications Aguilar Chavis, RPA 07/16/2019 I10 Essential (primary) hypertension Aguilar Chavis, RPA 07/16/2019 E78.5 Hyperlipidemia, unspecified Aguilar Miranda, RPA 07/16/2019 I48.20 Chronic atrial fibrillation, uns pecified Aguilar Chavis, RPA 07/16/2019 Z79.01 terminal operator (current) use of antic oagulants Aguilar Chavis, RPA 07/16/2019 E89.0 Postprocedural hypothyroidism Aguilar Wright, RPA 07/16/2019 R31.9 Hematuria, unspecified Adan Chavis, RPA 07/16/2019 M13.0 Polyarthritis, unspecified [place] Aguilar burnett, RPA 07/16/2019 E55.9 Vitamin D deficiency, unspecifie d Aguilar Chavis, RPA 07/16/2019 N39.41 Urge incontinence Bruce Chavis, BRENNON Plan of Treatment Future Appointment(s):* 01/21/2020 10:40 am - Aguilar Chavis RPA at [facility] Functional Status Description No Information Available Mental Status Description No Information Available Referrals Description No Information Available
--- OUTSIDE RECORDS SUMMARY | 2020-03-24 14:48 | CCD | Continuity of Care Document ---
Author Author Roselia CHAVIS RPA Organization Unknown Address [address] [facility] [address] [place] [address] Phone [phone] Care Team Providers Care Early Childhood Teacher Assistant Name Role Phone [facility] Cardiology - Cardiovascular Disease AUTM [phone] Problems Active Problems Provider Date Urge incontinence [...] Hypocalcemia Aguilar Chavis, RPA Onset: 01/31/2018 Note: [facility] Labs 01/24/18 Anemia Aguilar Chavis, RPA Onset: 01/31/2018 Note: 01/24/18 [facility] Labs Social History Type Date Description [...] mouth every day 30tabs Quinton Guillen D.O., [facility] Vitamin B Complex Tablets 1 by mouth every day 90tabs [facility]., [facility] Levothyroxine Sodium 175mcg Tablet s take 1 tablet by mouth once daily 90tabs Quinton Guillen D.O. , [facility]FP 01/11/2012 Warfarin Sodium 4mg Tablets (05/29/19 alternate 4-3-3-4) 90tabs Quinton Guillen D.O., [facility] 11/25/2010 Warfarin Sodium 3mg Tablets (05/29/19 alternate 4-3-3-4) 90tabs Quinton Guillen D.O., [facility] 11/25/2010 Potassium Chloride CR 10Meq Capsul es ER 1 PO qd 30caps Unknown Cardizem 60mg Tablets 1 tid Unknown Losartan Potassium 25mg Tablets 1 by mouth every day Unknown Metoprolol Tartrate 100mg Tablets take two tablets by mouth in the Am, one tab in PM. Unkno wn Spironolactone 25mg Tablets 1/2 by mouth every day () [facility] Cardiolog y Furosemide 40mg Tablets 1 po Am and 1/2 Afternoon() [facility] Cardiology History Medications Diflucan 100mg Tablets 2 by mouth stat, then one by mouth every day x 5 days 7tabs Quinton Guillen D.O., FAAFP 12/31/2019 - 01/06/2020 Metformin HCL 500mg Tablets take one tablet by mouth every day with evening meal 90tabs Quinton Guillen D.O., FAAFP 10/23/2019 - 11/19/2019 Immunizations CPT Code Status Date Vaccine Lot # [id number] Refused 10/22/2019 Influenza Virus Vaccine, Quadrivalent, Slit Virus, Im Use 3Y & Up [id number] Refused 11/13/2017 Influenza Virus Vaccine, Quadrivalent, Slit Virus, Im Use 3Y & Up [id number] Refused 12/04/2014 Influenza Vaccin e (Fluzone) 3Yrs Of Age Or Older Medicare Plans Vital Signs Date Vital Result Comment 01/21/2020 4:11pm BP Systolic 128 mmHg BP Diastolic 72 mmHg Body Temperature 98.0 F Heart Rate 98 /min Respiratory Rate 18 /min Height 66.25 inches 5'6.25" Weight 240.00 lb Roark Body Weight 130 lb BMI (Body Mass Index) 38.4 kg/m2 O2 % BldC Oximetry 93 % 10/22/2019 11:12am BP Systolic 124 mmHg BP Diastolic 64 mmHg Body Temperature 97.2 F Heart Rate 61 /min Respiratory Rate 16 /min Height 66.25 inches 5'6.25" Weight 245.00 lb Roark Body Weight 130 lb BMI (Body Mass Index) 39.2 kg/m2 O2 % BldC Oximetry 96 % Results Test Acquired Date Facility Test Result H/L Range Note CBC With Differential 12/26/2019 [facility] (Interface) [phone] White Blood Count 21.5 10 High 4.0-10.0 [...] 36.0-66.0 Lymph % 3.2 % Low 24.0-44.0 [place] % 6.8 % High 0.0-5.0 Eos % 0.0 % Normal 0.0-3.0 Baso % 0.5 % Normal 0.0-1.0 Immature Granulocyte % 3.1 % High 0-3.0 Nucleated Red Blood Cell % 0.0 % Normal 0-0 Neutrophils # 18.6 10 High 1.5-8.5 Lymph # 0.7 10 Low 1.5-5.0 [place] # 1.5 10 High 0.0-0.8 Eos # 0.0 10 Normal 0.0-0.5 Baso # 0.1 10 Normal 0.0-0.2 Prothrombin Time/Inr 12/26/2019 [facility] ( Interface) [phone] Prothrombin Time 59.7 seconds High 12.5-14.3 Inr 6.67 Critical high 1 Laboratory test finding 12/26/2019 [facility] (Interface) [phone] D-Dimer Quant 830.13 ng/ml High <500 Comprehensive Met[facility] [phone] Glucose, Fasting 384 mg/dL High 70-100 Blood [...] 0.8 Low 1.2-2.2 Cardiac Marker Panel 12/26/2019 [facility]) [phone] CPK Creatine Phosphokinase 53 U/L Normal 26-19 2 CK-MB Value Mass < 1.0 NG/ML Normal <3.6 MB/CK Relative Index 1.89 Normal < Or =4 3 Troponin I < 0.02 NG/ML Normal < 0.10 4 Laboratory test finding 12/26/2019 [facility] (Interface) [phone] LDH Lactate Dehydrogenase 287 U/L High 84-246 Ferritin 601 NG/ML High 8-252 Lactic Acid Sepsis Protocol 2.9 mmol/L Critical high 0.4-2.0 5 PT & Aptt 12/18/2019 [facility]) [phone] Prothrombin Time 21.7 seconds High 12.5-14.3 Inr 1.84 Normal 6 Partial Thromboplastin Time 41.7 seconds High 24.2-38.5 Laboratory test finding 12/18/2019 [facility] (Interface) [phone] NT-Pro BNP 2260 pg/mL High <125 Lipase 77 U/L Normal 73-393 Thyroid Stimulating Hormone 0.451 uIU/ML Normal 0.358-3.740 Basic Metabolic Profile 12/18/2019 [facility] (Interface) [phone] Glucose, Fasting 129 mg/dL High 70-100 Blood [...] 9.2 mg/dL Normal 8.8-10.2 Liver Profile 12/18/2019 [facility] [phone] Ast/Sgot 22 U/L Normal 7-37 Alt/SGPT 29 U/L Normal 12-78 Alkaline Phosphatase 101 U/L Normal 45-117 Bilirubin,Total 0.7 mg/dL Normal 0.2-1.0 Bilirubin,Direct 0.3 mg/dL High 0.0-0.2 Total Protein 7.8 GM/DL Normal 6.4-8.2 Albumin 4.1 GM/DL Normal 3.2-5.2 Albumin/Globulin Ratio 1.1 Low 1.2-2.2 Cardiac Marker Panel 12/18/2019 [facility] ( Interface) [phone] CPK Creatine Phosphokinase 40 U/L Normal 26-19 2 CK-MB Value Mass < 1.0 NG/ML Normal <3.6 MB/CK Relative Index 2.50 Normal < Or =4 8 Troponin I < 0.02 NG/ML Normal < 0.10 9 CBC With Differential 12/18/2019 [facility] ([facility]) [phone] White Blood Count 9.0 10 Normal 4.0-10.0 [...] 36.0-66.0 Lymph % 12.1 % Low 24.0-44.0 [place] % 9.8 % High 0.0-5.0 Eos % 0.0 % Normal 0.0-3.0 Baso % 0.2 % Normal 0.0-1.0 Immature Granulocyte % 0.7 % Normal 0-3.0 Nucleated Red Blood Cell % 0.0 % Normal 0-0 Neutrophils # 7.0 10 Normal 1.5-8.5 Lymph # 1.1 10 Low 1.5-5.0 [place] # 0.9 10 High 0.0-0.8 Eos # 0.0 10 Normal 0.0-0.5 Baso # 0.0 10 Normal 0.0-0.2 Respiratory Panel 12/18/2019 [facility] (I nterface) [phone] Respiratory Panel respiratory PCR <SEE NOTE> 10 [...] eGFR 85 # Calc 16 eGFR Non-Afr. Samoan 74 # Calc 17 Lipid Panel 10/22/2019 [...] 26.1 seconds Off scale high 11.7-14.5 20 1 THERAPUTIC HUMAN INR VALUES INDICATIONS NORMAL [...] Little GFR Left ESRD GFR <15 on WOOD TECHNOLOGIST 3 DIAGNOSIS CRITERIA MMB ng/ml Relative Index (RI) NON-AMI < or = 5 N/A RUDOLPH ZONE > 5 < or = 4 AMI > 5 > 4 4 Troponin I Reference Interva l for [employer] LOCI: 99th Percentile= 0.00-0.045 ng/ml Risk Stratification: [...] Little GFR Left ESRD GFR <15 on WOOD TECHNOLOGIST 8 DIAGNOSIS CRITERIA MMB ng/ml Relative Index (RI) NON-AMI < or = 5 N/A RUDOLPH ZONE > 5 < or = 4 AMI > 5 > 4 9 Troponin I Reference Interva l for [employer]: 99th Percentile= 0.00-0.045 ng/ml Risk Stratification: <= [...] deficiency has bee n defined by the [place] of Medicine and an Endocrine Society practice guideline as a level of serum 25-OH vitamin D less than 20 ng/mL (1,2). The Endocrine Society went on to further define vitamin D insufficiency as a level between 21 and 29 ng/mL (2). 1. IOM ([place] of Medicine). 2010. Di meryry reference intakes for calcium and D. [place]: The National AcademHealthLok Press. 2. Deric MF, Gretel WILLIAMSON, Kelvin [...] RISK OF BLEEDING. 20 Confirmed on reassay Procedures Description No Information Available Medical Devices Description No Information Available Encounters Type Date Location Provider Dx Diagnosis Office Visit 01/21/2020 4:00p [place] [facility] Aguilar Chavis, RP A R53.83 Other fatigue R53.1 Weakness R06.02 Shortness of breath E11.9 Type 2 diabetes mellitus wit hout complications I10 Essential (primary) hyperten [place] E78.5 Hyperlipidemia, unspecified I48.20 Chronic atrial fibrillation, unspecified Z79.01 FDC (current) use of a nticoagulants E89.0 Postprocedural hypothyroidis m R31.9 Hematuria, unspecified M13.0 Polyarthritis, unspecified E55.9 Vitamin D deficiency, unspec ified N39.41 Urge incontinence Office Visit 10/22/2019 11:15a [facility] Aguilar Chavis, RP A E11.9 Type 2 diabetes mellitus without complications I10 Essential (primary) hyperten [place] E78.5 Hyperlipidemia, unspecified I48.20 Chronic atrial fibrillation, unspecified E89.0 Postprocedural hypothyroidis m R31.9 Hematuria, unspecified 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 10/22/2019 E11.9 Type 2 diabetes mellitus without complications Aguilar Chavis, RPA 10/22/2019 I10 Essential (primary) hypertension Aguilar Chavis, RPA 10/22/2019 E78.5 Hyperlipidemia, unspecified Aguilar Miarnda, RPA 10/22/2019 I48.20 Chronic atrial fibrillation, uns pecified Aguilar Chavis, RPA 10/22/2019 E89.0 Postprocedural hypothyroidism Aguilar Wright, RPA 10/22/2019 R31.9 Hematuria, unspecified Adan Chavis, RPA 10/22/2019 Z79.01 FDC (current) use of antic oagulants Aguilar Chavis, RPA 10/22/2019 M13.0 Polyarthritis, unspecified Hinma Aguilar burnett, RPA 10/22/2019 E55.9 Vitamin D deficiency, unspecifie d Aguilar Chavis, RPA 10/22/2019 N39.41 Urge incontinence Bruce Chavis, BRENNON 09/19/2019 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
--- NOTE | 2020-03-24 16:01 | REP ---
INDICATION: DYSPNEA/COUGH. COMPARISON: Comparison portable chest x-ray 05 January 2020. TECHNIQUE: Portable upright AP chest radiograph. FINDINGS: Mild to moderate cardiomegaly is observed unchanged. Pulmonary vasculature is cephalized slightly. There is no evidence of pleural effusion. No definite focal infiltrate.. IMPRESSION: Cardiomegaly. Mild vascular cephalization. No evidence of pleural effusion or pulmonary edema. Question bibasilar interstitial fibrosis.. <Electronically signed by Raza Dozier > 03/24/20 [id number]
[2020-03-24 16:15] LABS: BASO % 0.3 % (0.0-1.0); EOS # 0.1 10^3/uL (0.0-0.5); EOS % 0.5 % (0.0-3.0); HEMATOCRIT 39.4 % (36.0-47.0); HEMOGLOBIN 12.7 g/dl (12.0-15.5); LYMPH # 0.5 10^3/uL (1.5-5.0); LYMPH % 3.7 % (24.0-44.0); MEAN CORPUSCULAR HEMOGLOBIN 30.2 pg (27.0-33.0); MEAN CORPUSCULAR HGB CONC 32.2 g/dl (32.0-36.5); MEAN CORPUSCULAR VOLUME 93.8 fl (80.0-96.0); MONO # 0.7 10^3/uL (0.0-0.8); MONO % 5.4 % (2.0-8.0); NEUTROPHILS # 11.3 10^3/uL (1.5-8.5); NEUTROPHILS % 89.7 % (36.0-66.0); PLATELET COUNT, AUTOMATED 194 10^3/uL (150-450); WHITE BLOOD COUNT 12.5 10^3/uL (4.0-10.0)
[2020-03-24 17:01] LABS: ALBUMIN 3.7 GM/DL (3.2-5.2); ALT/SGPT 20 U/L (12-78); BILIRUBIN,DIRECT 0.2 MG/DL (0.0-0.2); BILIRUBIN,TOTAL 0.9 MG/DL (0.2-1.0); BLOOD UREA NITROGEN 13 MG/DL (7-18); CALCIUM LEVEL 9.4 MG/DL (8.8-10.2); CARBON DIOXIDE LEVEL 23 MEQ/L (21-32); CHLORIDE LEVEL 108 MEQ/L (98-107); CK-MB VALUE MASS < 1.0 NG/ML (<3.6); CPK CREATINE PHOSPHOKINASE 97 U/L (26-192); CREATININE FOR GFR 0.84 MG/DL (0.55-1.30); GLOMERULAR FILTRATION RATE > 60.0 (>39); GLUCOSE, FASTING 173 MG/DL (70-100); MB/CK RELATIVE INDEX 1.03 (< OR =4); NT-PRO BNP 2676 PG/ML (<125); POTASSIUM SERUM 4.4 MEQ/L (3.5-5.1); SODIUM LEVEL 139 MEQ/L (136-145); THYROXINE (T4) 14.4 UG/DL (4.5-12.0); TOTAL PROTEIN 7.4 GM/DL (6.4-8.2); TROPONIN I < 0.02 NG/ML (< 0.10)
[2020-03-24] MEDS ORDERED: COMBIVENT RESPIMAT 100-20MCG INHALER 4GM INH STA (17:24)
[2020-03-24] MEDS ORDERED: FUROSEMIDE 100MG/10ML VIAL (J1940) IV ONE (17:30)
[2020-03-24] MEDS ORDERED: methylPREDNISolone 125MG 2ML VIAL IV ONE (17:30)
[2020-03-24] MEDS ORDERED: DEXTROSE 50% 50 ML SYRINGE IV PRN (18:00)
[2020-03-24] MEDS ORDERED: GLUCOSE 4GM CHEW TABLET PO PRN (18:00)
[2020-03-24] MEDS ORDERED: GLUCAGON INJ 1MG VIAL SC PRN (18:00)
[2020-03-24] MEDS ORDERED: DILT30TA PO (18:52)
[2020-03-24] MEDS ORDERED: ACET-683 PO (18:52)
[2020-03-24] MEDS ORDERED: VENTAER INH (18:52)
--- NOTE | 2020-03-24 18:53 | HPEPDOC ---
[facility] Medical History & Physical Date of Admission Mar 24, 2020 Date of Service: Mar 24, 2020 Attending Physician: GENIE HELLER MD History and Physical CHIEF COMPLAINT: , Shortness of breath HISTORY OF PRESENT ILLNESS: 74-year-old female with past medical history of congestive heart failure, atrial fibrillation (on Coumadin), hypertension and diabetes mellitus presents with shortness of breath. Patient was diagnosed with Covid in December 2019, recovered and returned to her baseline. Patient was feeling well up until one to 2 weeks ago when she started experiencing a sore throat and because of that her water intake, increased to alleviate the dryness in her throat. She reports a 10 pound weight can over the last 2 weeks. She has been taken her Lasix as prescribed. She received her first dose of Covid vaccine yesterday and has been experiencing chills and mild diarrhea since then. She denies any fever, nausea, vomiting or chest pain at this time. 10 point review of system is negative except for above PAST MEDICAL HISTORY: 1. Congestive heart failure. 2. . Diabetes mellitus. 3. Hypertension. 4. Atrial fibrillation. 5. Covid 19 PAST SURGICAL HISTORY: 1. Thyroidectomy. 2. Cholecystectomy. SOCIAL HISTORY: Never smoker. Denies alcohol use. Denies drug use FAMILY HISTORY: Mother had diabetes mellitus ALLERGIES: Please see below. HOME MEDICATIONS: Please see below. PHYSICAL EXAMINATION: VITAL SIGNS: Please see below. GENERAL: No distress HEENT: Normocephalic, atraumatic, moist mucous membranes NECK: Supple CARDIOVASCULAR EXAMINATION: S1, S2, tachycardic RESPIRATORY EXAMINATION: Rhonchi appreciated, no wheezing ABDOMINAL EXAMINATION: Soft, mild diffuse tenderness, nondistended, positive bowel sounds EXTREMITIES: Pitting edema SKIN: No rash NEUROLOGICAL EXAMINATION: Alert and oriented 3, no focal deficits PSYCHIATRIC EXAMINATION: Calm and cooperative LABORATORY DATA: See below. MICROBIOLOGY: Please see below. ASSESSMENT: 74-year-old female with past medical history of CHF, atrial fibrillation, diabetes mellitus and hypertension is being admitted for CHF exacerbation. PLAN: 1. CHF exacerbation 10 pound weight gain due to increased water intake caused by dry throat. Lasix 40 mg IV every 8 hours, monitor intake and output, weight daily, 1500 mL fluid restriction. Echocardiogram pending. Will rule out other causes for dyspnea, respiratory viral panel pending, repeat Covid test pending, blood cultures pending. 2. Atrial fibrillation. On Coumadin for anticoagulation, INR pending. We'll continue if within therapeutic range. Continue metoprolol and Cardizem for rate control. 3. Diabetes mellitus. Hold home meds. Sliding scale insulin with meals and at bedtime 4. Hypothyroidism. Status post thyroidectomy. Continue levothyroxine 5. Hypertension. Continue losartan, metoprolol, Cardizem and spironolactone DVT prophylaxis: On Coumadin. GI prophylaxis: Not needed Vital Signs Vital Signs Date Time Temp Pulse Resp B/P (MAP) Pulse Ox O2 Delivery O2 Flow Rate FiO2 03/24/20 18:17 172/85 (114) 03/24/20 18:08 120 92 03/24/20 15:02 Room Air 03/24/20 14:39 98.9 24 Laboratory Data Labs 24H Laboratory Tests 2 03/24/20 15:56: Immature Granulocyte % (Auto) 0.4, Neutrophils (%) (Auto) 89.7H, Lymphocytes (%) (Auto) 3.7L, Monocytes (%) (Auto) 5.4, Eosinophils (%) (Auto) 0.5, Basophils (%) (Auto) 0.3, Neutrophils # (Auto) 11.3H, Lymphocytes # (Auto) 0.5L, Monocytes # (Auto) 0.7, Eosinophils # (Auto) 0.1, Basophils # (Auto) 0.0, Nucleated Red Blood Cells % (auto) 0.0, Anion Gap 8, Glomerular Filtration Rate > 60.0, Lactic Acid Level 1.7, Calcium Level 9.4, Total Bilirubin 0.9, Direct Bilirubin 0.2, Aspartate Amino Transf (AST/SGOT) 36, Alanine Aminotransferase (ALT/SGPT) 20, Alkaline Phosphatase 92, Total Creatine Kinase 97, Creatine Kinase MB < 1.0, Creatine Kinase MB Relative Index 1.03, Troponin I < 0.02, ZG-Suu-[id number]-Type Natriuretic Peptide 2676H, Total Protein 7.4, Albumin 3.7, Albumin/Globulin Ratio 1.0L, Thyroid Stimulating Hormone (TSH) 1.830, Thyroxine (T4) 14.4H 03/24/20 18:16: CBC/BMP Laboratory Tests 03/24/20 15:56 Home Medications Scheduled Cholecalciferol (Vitamin D3) (Vitamin D3) 1,000 Unit Tablet, 1,000 UNITS PO DAILY Diltiazem HCl (Diltiazem HCl) 30 Mg Tablet, 90 MG PO TID Furosemide (Furosemide) 40 Mg Tablet, 60 MG PO DAILY Levofloxacin (Levofloxacin) 750 Mg Tablet, 1 TAB PO DAILY Levothyroxine Sodium (Levothyroxine Sodium) 175 Mcg Tab, 175 MCG PO DAILY Linezolid (Linezolid) 600 Mg Tablet, 600 MG PO BID Losartan Potassium (Losartan Potassium) 25 Mg Tab, 25 MG PO QHS Metoprolol Tartrate (Metoprolol Tartrate) 100 Mg Tab, 200 MG PO DAILY Metoprolol Tartrate (Metoprolol Tartrate) 100 Mg Tab, 100 MG PO QHS Prednisone (Prednisone) 50 Mg Tablet, 50 MG PO DAILY Sitagliptin Phosphate (Januvia) 100 Mg Tablet, 100 MG PO QPM DINNER TIME Spironolactone (Spironolactone) 25 Mg Tab, 12.5 MG PO DAILY Warfarin Sodium (Warfarin Sodium) 3 Mg Tablet, 3 MG PO 3XW MON/TUE/FRI AT 1700 Warfarin Sodium (Warfarin Sodium) 2 Mg Tablet, 2 MG PO 4XWK SUN/MON//SAT AT 1700 Scheduled PRN Acetaminophen (Acetaminophen) 325 Mg Tablet, 650 MG PO Q4H PRN for PAIN / FEVER Albuterol Sulfate (Proair Hfa) 8.5 Gm Hfa.aer.ad, 2 PUFF INH Q4-6HP PRN for wheezing Allergies Coded Allergies: Penicillins (Verified Allergy, Severe, HIVES,ANAPHYLAXIS, 12/26/19) SEAFOOD (Verified Allergy, Severe, THROAT SWELLING, 12/26/19) A-FIB/CHADSVASC A-FIB History Current/History of A-Fib/PAF?: Yes Current PO Anticoag Therapy: Yes GENIE HELLER MD Mar 24, 2020 18:53
[2020-03-24] MEDS ORDERED: WARF-58 PO (18:57)
[2020-03-24] MEDS ORDERED: WARF-20 PO (18:57)
[2020-03-24] MEDS ORDERED: FURO40TA2 PO (18:57)
[2020-03-24 19:00] LABS: RSV AMPLIFICATION NEGATIVE (NEGATIVE)
--- NOTE | 2020-03-24 19:52 | ECGEPIP ---
[facility] - ED Test Date: 2020-03-24 Pat Name: SHANE CARNEY Department: Room: - Gender: Female Site Leader: : 1945 Requested By: LEANDRA NAYAK Order Number: [id number] Reading MD: Chato Villa Measurements Intervals Ideal Rate: 89 P: UT: QRS: 64 QRSD: 94 T: 142 QT: 390 QTc: 474 Interpretive Statements Atrial fibrillation Low voltage QRS Incomplete right bundle branch block Cannot rule out Anterior infarct , age undetermined RATE CHANGE COMPARED TO 12/27/19 Electronically Signed on 03-24-2020 19:52:21 EST by Chato Villa
[2020-03-24 20:27] LABS: INR 2.94; PROTHROMBIN TIME 31.3 SECONDS (12.5-14.3)
[2020-03-24] MEDS ORDERED: WARFARIN SOD 2MG TAB PO ONE (21:00)
[2020-03-24] MEDS: HumaLOG INSULIN (NovoLOG) PER UNIT SC SCH (21:00)
[2020-03-24] MEDS: LOSARTAN 25 MG TAB PO SCH (21:19)
[2020-03-24] MEDS: METOPROLOL TARTRATE 100 MG TAB PO SCH (21:20)
[2020-03-24 21:35] VITALS: BP 152/85
[2020-03-24] MEDS ORDERED: ACETAMINOPHEN 500 MG TAB PO ONE (22:15)
[2020-03-25] MEDS: FUROSEMIDE 40MG/4ML VIAL (J1940) IV SCH ×3 (01:13→17:11)
[2020-03-25 06:00] VITALS: BP 128/78
[2020-03-25 06:55] LABS: HEMATOCRIT 36.6 % (36.0-47.0); HEMOGLOBIN 11.8 g/dl (12.0-15.5); MEAN CORPUSCULAR HEMOGLOBIN 29.5 pg (27.0-33.0); MEAN CORPUSCULAR HGB CONC 32.2 g/dl (32.0-36.5); MEAN CORPUSCULAR VOLUME 91.5 fl (80.0-96.0); PLATELET COUNT, AUTOMATED 161 10^3/uL (150-450); WHITE BLOOD COUNT 6.9 10^3/uL (4.0-10.0)
[2020-03-25 06:58] LABS: INR 2.82; PROTHROMBIN TIME 30.3 SECONDS (12.5-14.3)
[2020-03-25 07:27] LABS: ALBUMIN 3.6 GM/DL (3.2-5.2); ALT/SGPT 23 U/L (12-78); BILIRUBIN,TOTAL 1.3 MG/DL (0.2-1.0); BLOOD UREA NITROGEN 10 MG/DL (7-18); CARBON DIOXIDE LEVEL 29 MEQ/L (21-32); CHLORIDE LEVEL 104 MEQ/L (98-107); CREATININE FOR GFR 0.78 MG/DL (0.55-1.30); GLOMERULAR FILTRATION RATE > 60.0 (>39); GLUCOSE, FASTING 126 MG/DL (70-100); POTASSIUM SERUM 3.4 MEQ/L (3.5-5.1); SODIUM LEVEL 141 MEQ/L (136-145); TOTAL PROTEIN 6.9 GM/DL (6.4-8.2)
[2020-03-25] MEDS ORDERED: POTASSIUM CHLORIDE 10 MEQ SR TABLET PO ONE ×2 (08:30→16:15)
[2020-03-25] MEDS: SPIRONOLACTONE 25 MG TAB PO SCH (08:31)
[2020-03-25] MEDS: VITAMIN D 1,000 INTERNATIONAL UNITS TABLET PO SCH (08:33)
[2020-03-25] MEDS: METOPROLOL TARTRATE 100 MG TAB PO SCH ×2 (08:33→21:13)
[2020-03-25] MEDS: HumaLOG INSULIN (NovoLOG) PER UNIT SC SCH ×4 (08:35→20:26)
[2020-03-25 09:30] VITALS: BP 110/73
[2020-03-25 14:00] VITALS: BP 117/62
--- NOTE | 2020-03-25 16:14 | IPNPDOC ---
Date Seen The patient was seen on 03/25/20. Progress Note SUBJECTIVE: Comfortable in bed, sitting up, without any dyspnea or hypoxemia at this time. Feels significantly better compared to yesterday. Has had good urine output with IV Lasix. Has put out over 2 L since admission. PHYSICAL EXAMINATION: VITAL SIGNS: Please see below. GENERAL: No distress HEENT: Normocephalic, atraumatic, moist mucous membranes NECK: Supple CARDIOVASCULAR EXAMINATION: Irregularly irregular RESPIRATORY EXAMINATION: Scattered rhonchi, no wheezing ABDOMINAL EXAMINATION: Soft, nontender, nondistended, positive bowel sounds EXTREMITIES: Positive edema SKIN: No rash NEUROLOGICAL EXAMINATION: Alert and oriented 3, no focal deficits PSYCHIATRIC EXAMINATION: Calm and cooperative LABORATORY DATA, IMAGING STUDIES, MICROBIOLOGY: Please see below. ASSESSMENT: 74-year-old female with past medical history of CHF, atrial fibrillation, diabetes mellitus and hypertension is admitted for CHF exacerbation. PLAN: 1. CHF exacerbation Significant clinical improvement with IV Lasix. We'll discontinue IV Lasix later today and start by mouth diuretics tomorrow. Continue to monitor intake and output, weight daily, 1500 mL fluid restriction. Echocardiogram pending. 2. Atrial fibrillation. INR is therapeutic, continue Coumadin Continue metoprolol and Cardizem for rate control. 3. Diabetes mellitus. Hold home meds. Sliding scale insulin with meals and at bedtime 4. Hypothyroidism. Status post thyroidectomy. Continue levothyroxine 5. Hypertension. Continue losartan, metoprolol, Cardizem and spironolactone DVT prophylaxis: On Coumadin. GI prophylaxis: Not needed VS, I&O, 24H, Fishbone Vital Signs/I&O Vital Signs Date Time Temp Pulse Resp B/P (MAP) Pulse Ox O2 Delivery O2 Flow Rate FiO2 03/25/20 14:00 99.9 88 26 117/62 (80) 95 Room Air I&O- Last 24 Hours up to 6 AM 03/25/20 06:00 Intake Total 280 ml Output Total 3200 ml Balance -2920 ml Laboratory Data 24H LABS Laboratory Tests 2 03/24/20 18:16: Coronavirus (COVID-19)(PCR) NEGATIVE, Influenza Type A (RT-PCR) NEGATIVE, Influenza Type B (RT-PCR) NEGATIVE, Respiratory Syncytial Virus (PCR) NEGATIVE 03/24/20 19:58: Prothrombin Time 31.3H, Prothromb Time International Ratio 2.94 03/24/20 21:11: Bedside Glucose (Misc Panel) 178H 03/25/20 06:25: Bedside Glucose (Misc Panel) 124H 03/25/20 06:27: Nucleated Red Blood Cells % (auto) 0.0, Prothrombin Time 30.3H, Prothromb Time International Ratio 2.82, Anion Gap 8, Glomerular Filtration Rate > 60.0, Calci um Level 9.0, Magnesium Level 2.0, Total Bilirubin 1.3H, Aspartate Amino Transf (AST/SGOT) 18, Alanine Aminotransferase (ALT/SGPT) 23, Alkaline Phosphatase 91, Total Protein 6.9, Albumin 3.6, Albumin/Globulin Ratio 1.1L, Procalcitonin 0.16 03/25/20 11:34: Bedside Glucose (Misc Panel) 187H CBC/BMP Laboratory Tests 03/25/20 06:27 Microbiology Microbiology 03/24/20 Blood Culture, Received Pending 03/24/20 Blood Culture, Received Pending GENIE HELLER MD Mar 25, 2020 16:14
[2020-03-25] MEDS ORDERED: WARFARIN SOD 4MG TAB PO SCH (17:00)
[2020-03-25] MEDS: LOSARTAN 25 MG TAB PO SCH (21:13)
[2020-03-25 22:00] VITALS: BP 117/73
[2020-03-26 06:00] VITALS: BP 129/80
[2020-03-26 06:39] LABS: HEMATOCRIT 38.5 % (36.0-47.0); HEMOGLOBIN 12.2 g/dl (12.0-15.5); MEAN CORPUSCULAR HEMOGLOBIN 29.8 pg (27.0-33.0); MEAN CORPUSCULAR HGB CONC 31.7 g/dl (32.0-36.5); MEAN CORPUSCULAR VOLUME 93.9 fl (80.0-96.0); PLATELET COUNT, AUTOMATED 178 10^3/uL (150-450); WHITE BLOOD COUNT 7.2 10^3/uL (4.0-10.0)
[2020-03-26 06:49] LABS: INR 2.39; PROTHROMBIN TIME 26.6 SECONDS (12.5-14.3)
[2020-03-26 06:58] LABS: BLOOD UREA NITROGEN 15 MG/DL (7-18); CALCIUM LEVEL 9.8 MG/DL (8.8-10.2); CARBON DIOXIDE LEVEL 31 MEQ/L (21-32); CHLORIDE LEVEL 104 MEQ/L (98-107); CREATININE FOR GFR 0.84 MG/DL (0.55-1.30); GLOMERULAR FILTRATION RATE > 60.0 (>39); GLUCOSE, FASTING 120 MG/DL (70-100); POTASSIUM SERUM 3.8 MEQ/L (3.5-5.1); SODIUM LEVEL 141 MEQ/L (136-145)
[2020-03-26] MEDS: HumaLOG INSULIN (NovoLOG) PER UNIT SC SCH ×2 (07:30→11:42)
[2020-03-26] MEDS: VITAMIN D 1,000 INTERNATIONAL UNITS TABLET PO SCH (08:28)
[2020-03-26 08:29] VITALS: BP 122/73
[2020-03-26] MEDS: SPIRONOLACTONE 25 MG TAB PO SCH (08:29)
[2020-03-26] MEDS: METOPROLOL TARTRATE 100 MG TAB PO SCH (08:30)
[2020-03-26] MEDS ORDERED: TORSEMIDE 20 MG TAB PO SCH (09:00)
[2020-03-26 09:11] VITALS: BP 121/73
--- NOTE | 2020-03-26 14:09 | DS.PDOC ---
Discharge Summary General Date of Admission Mar 24, 2020 at 17:58 Date of Discharge 03/26/20 Attending Physician: GENIE HELLER MD Discharge Summary PROCEDURES PERFORMED DURING STAY: None. ADMITTING DIAGNOSES: 1. CHF exacerbation. DISCHARGE DIAGNOSES: 1. CHF exacerbation. COMPLICATIONS/CHIEF COMPLAINT: CHF. HISTORY OF PRESENT ILLNESS: 74-year-old female with past medical history of congestive heart failure, atrial fibrillation, hypertension, diabetes mellitus and hypothyroidism was admitted for CHF exacerbation. Patient had a 10 pound weight gain due to increased water intake caused by dry throat. She was treated with IV Lasix with good response, had significant urine output and weight loss. She is down over 3-4 kg since admission. She is close to her baseline dry w eight. She has clinically improved over the last 24-48 hours, comfortable on room air at this time. She appears to be at her baseline health at this time. Patient is clinically and hemodynamically stable for discharge and outpatient follow-up. Patient is advised to maintain a 1500 mL per day fluid restriction and weight herself daily. She is to call her PCP/ring spinner if her weight starts going up. Patient is agreeable with this plan at this time. HOSPITAL COURSE: As above. DISCHARGE MEDICATIONS: Please see below. ALLERGIES: Please see below. PHYSICAL EXAMINATION: VITAL SIGNS: Please see below. GENERAL: No distress HEENT: Normocephalic, atraumatic, moist mucous membranes NECK: Supple CARDIOVASCULAR EXAMINATION: , Irregularly irregular RESPIRATORY EXAMINATION: Scattered rhonchi, no wheezing ABDOMINAL EXAMINATION: Soft, nontender, nondistended, positive bowel sounds EXTREMITIES: Trace edema SKIN: No rash NEUROLOGICAL EXAMINATION: Alert and oriented 3, no focal deficits PSYCHIATRIC EXAMINATION: Calm and cooperative LABORATORY DATA: Please see below. PROGNOSIS: Fair ACTIVITY: As tolerated. DIET: Cardiac with 1500 mL fluid restriction DISCHARGE PLAN: Follow-up with PCP 1-2 weeks DISPOSITION: Home. DISCHARGE INSTRUCTIONS: 1. As above. DISCHARGE CONDITION: Stable. TIME SPENT ON DISCHARGE: Greater than 20 minutes. Vital Signs/I&Os Vital Signs Date Time Temp Pulse Resp B/P (MAP) Pulse Ox O2 Delivery O2 Flow Rate FiO2 03/26/20 09:11 98.1 100 17 121/73 (89) 95 Room Air I&O- Last 24 Hours up to 6 AM 03/26/20 06:00 Intake Total 1260 ml Output Total 1275 ml Balance -15 ml Laboratory Data Labs 24H Laboratory Tests 2 03/25/20 16:59: Bedside Glucose (Misc Panel) 110 03/25/20 20:03: Bedside Glucose (Misc Panel) 149H 03/26/20 06:12: Nucleated Red Blood Cells % (auto) 0.0, Prothrombin Time 26.6H, Prothromb Time International Ratio 2.39, Anion Gap 6L, Glomerular Filtration Rate > 60.0, Calcium Level 9.8 03/26/20 11:09: Bedside Glucose (Misc Panel) 176H CBC/BMP Laboratory Tests 03/26/20 06:12 FSBS Laboratory Tests Test 03/25/20 16:59 03/25/20 20:03 03/26/20 11:09 Range/Units Bedside Glucose (Misc Panel) 110 149 176 83-110 MG/DL Microbiology Microbiology 03/24/20 Blood Culture - Preliminary, Resulted No growth after 24 hours . All specim... 03/24/20 Blood Culture - Preliminary, Resulted No growth after 24 hours . All specim... Discharge Medications Scheduled Cholecalciferol (Vitamin D3) (Vitamin D3) 1,000 Unit Tablet, 1,000 UNITS PO DAILY, (Reported) Diltiazem HCl (Diltiazem HCl) 30 Mg Tablet, 30 MG PO TID, (Reported) Furosemide (Furosemide) 40 Mg Tablet, 40 MG PO QAM, (Reported) Furosemide (Furosemide) 40 Mg Tablet, 20 MG PO DAILY, (Reported) takes in afternoon Levothyroxine Sodium (Levothyroxine Sodium) 175 Mcg Tab, 175 MCG PO DAILY, (Reported) Losartan Potassium (Losartan Potassium) 25 Mg Tab, 25 MG PO QHS, (Reported) Metoprolol Tartrate (Metoprolol Tartrate) 100 Mg Tab, 200 MG PO QAM, (Reported) Metoprolol Tartrate (Metoprolol Tartrate) 100 Mg Tab, 100 MG PO QHS, (Reported) Sitagliptin Phosphate (Januvia) 100 Mg Tablet, 100 MG PO QPM, (Reported) DINNER TIME Spironolactone (Spironolactone) 25 Mg Tab, 12.5 MG PO DAILY, (Reported) Warfarin Sodium (Warfarin Sodium) 3 Mg Tablet, 3 MG PO 2XW, (Reported) takes monday and monday Warfarin Sodium (Warfarin Sodium) 4 Mg Tablet, 4 MG PO 5XW, (Reported) ,MON,,FRI,SAT Scheduled PRN Acetaminophen (Acetaminophen) 500 Mg Tablet, 500 MG PO Q4H PRN for PAIN, (Reported) Albuterol Sulfate (Ventolin Hfa) 18 Gm Hfa.aer.ad, 2 PUFF INH Q4-6HP PRN for wheezing, (Reported) Allergies Coded Allergies: Penicillins (Verified Allergy, Severe, HIVES,ANAPHYLAXIS, 12/26/19) SEAFOOD (Verified Allergy, Severe, THROAT SWELLING, 12/26/19) GENIE HELLER MD Mar 26, 2020 14:09
[2020-03-29] MEDS ORDERED: WARFARIN SOD 3MG TAB PO SCH (17:00)
--- NOTE | 2020-03-30 08:59 | ECHO ---
DATE OF PROCEDURE: 03/25/2020 Age: 74 Gender: Female PATIENT LOCATION: Room 4209 REASON FOR STUDY: Heart failure 2D MEASUREMENTS: IVS 0.9 cm LV 4.3 cm LVPW 1.0 cm LA 4.4 cm Aorta 2.7 cm RV 3.7 cm IVC 2.2 cm DOPPLER MEASUREMENT Peak velocity across the aortic valve 1.0 m/s Peak velocity across the LVOT 1.1 m/s Mitral E 1.2 Maximum tricuspid valve velocity 3.2 m/s 2D COMMENTS: 1. Technically limited study due to poor acoustic window. 2. Normal left ventricular size, wall thickness, and normal global left ventricular systolic function. The estimated left ventricular systolic ejection fraction is 60% to 65%. 3. Mildly enlarged left atrium. The right atrium and the right ventricle are dilated. The right ventricular free wall appeared to be hypokinetic, consistent with some degree of right ventricular systolic dysfunction. 4. The atrial septum appeared to be normal without evidence of defect or shunt. 5. Normal aortic root. 6. Trace pericardial effusion was noted, no evidence of cardiac tamponade. 7. Mildly calcified aortic valve with normal leaflet excursion. Normal mitral valve and tricuspid valve, as well as the pulmonic valve. The proximal pulmonary artery branches were not well visualized. 8. The inferior vena cava was dilated, central venous pressure mildly elevated. Doppler detects mild mitral regurgitation, moderate tricuspid regurgitation, trace pulmonic regurgitation. The calculated pulmonary artery systolic pressure value was between 40 to 50 mmHg. Assessment of the left ventricular diastolic function was limited; the patient seemed to be in atrial fibrillation during the test. IMPRESSION: 1. Normal global left ventricular systolic function. Assessment of the left ventricular diastolic function was limited in view of the underlying arrhythmias. 2. Aortic valve sclerosis without stenosis or aortic regurgitation. 3. Mildly enlarged left atrium with mild mitral regurgitation. 4. Moderate tricuspid regurgitation with moderate pulmonary hypertension. The right heart chambers appeared to be enlarged. The findings were consistent also with right ventricular systolic dysfunction. 5. Central venous pressure is mildly elevated; the inferior vena cava was mildly enlarged. 6. Trace pericardial effusion. MTDD
== END 2020-03-26 15:32 | disposition home or self-care (01) | DRG 293 ==
LOC: M ED 14:38 → M ED INP 17:58 → M MSPAV 21:33
PROVIDERS: ADMIT Internal Medicine; ATTEND Internal Medicine
DX: I11.0 Hypertensive heart disease with heart failure (principal); I50.9 Heart failure, unspecified; I48.91 Unspecified atrial fibrillation; E11.9 Type 2 diabetes mellitus without complications; Z86.16 Personal history of COVID-19; E89.0 Postprocedural hypothyroidism; Z79.01 Long term (current) use of anticoagulants; Z79.52 Long term (current) use of systemic steroids; Z88.0 Allergy status to penicillin; Z66 Do not resuscitate; Z91.013 Allergy to seafood; Z20.822 Contact with and (suspected) exposure to COVID-19

== ENCOUNTER 2020-04-22 12:34 | Emergency (ER) | payer MEDICARE ==
[~2020-04-22] VITALS: Ht 175.3 cm; Wt 107.0 kg
[~2020-04-22 12:34] MED LIST changes: +ACET-683 PO; +VENTAER INH
[2020-04-22] MEDS ORDERED: ACETAMINOPHEN TAB 650MG DOSE (2X325MG) PO ONE (13:00)
[2020-04-22 13:10] LABS: BASO % 0.3 % (0.0-1.0); EOS % 0.3 % (0.0-3.0); HEMATOCRIT 37.4 % (36.0-47.0); HEMOGLOBIN 12.5 g/dl (12.0-15.5); LYMPH # 0.7 10^3/uL (1.5-5.0); LYMPH % 6.4 % (24.0-44.0); MEAN CORPUSCULAR HEMOGLOBIN 30.4 pg (27.0-33.0); MEAN CORPUSCULAR HGB CONC 33.4 g/dl (32.0-36.5); MONO # 0.9 10^3/uL (0.0-0.8); MONO % 7.6 % (2.0-8.0); NEUTROPHILS # 9.7 10^3/uL (1.5-8.5); NEUTROPHILS % 84.7 % (36.0-66.0); PLATELET COUNT, AUTOMATED 161 10^3/uL (150-450); RED BLOOD COUNT 4.11 10^6/uL (4.00-5.40); WHITE BLOOD COUNT 11.5 10^3/uL (4.0-10.0)
[2020-04-22 13:20] LABS: INR 2.93; PROTHROMBIN TIME 31.2 SECONDS (12.5-14.3)
[2020-04-22 13:34] LABS: ALBUMIN 3.7 GM/DL (3.2-5.2); ALT/SGPT 27 U/L (12-78); BILIRUBIN,DIRECT 0.6 MG/DL (0.0-0.2); BILIRUBIN,TOTAL 1.3 MG/DL (0.2-1.0); BLOOD UREA NITROGEN 13 MG/DL (7-18); CALCIUM LEVEL 9.2 MG/DL (8.8-10.2); CARBON DIOXIDE LEVEL 25 MEQ/L (21-32); CHLORIDE LEVEL 104 MEQ/L (98-107); CREATININE FOR GFR 0.86 MG/DL (0.55-1.30); GLOMERULAR FILTRATION RATE > 60.0 (>39); GLUCOSE, FASTING 240 MG/DL (70-100); LIPASE 60 U/L (73-393); POTASSIUM SERUM 3.8 MEQ/L (3.5-5.1); SODIUM LEVEL 136 MEQ/L (136-145); TOTAL PROTEIN 7.4 GM/DL (6.4-8.2)
--- NOTE | 2020-04-22 13:46 | REP ---
INDICATION: CHEST PAIN. COMPARISON: Comparison chest x-ray March 24, 2020. TECHNIQUE: Portable upright AP chest radiograph. FINDINGS: There is linear platelike atelectasis in the left base. Cardiomegaly is observed unchanged. Pulmonary vasculature is not increased. The pleural angles are sharp. No definite infiltrate. Arthritic changes are noted in the shoulders.. IMPRESSION: Cardiomegaly. Platelike atelectasis left base. No definite infiltrate.. <Electronically signed by Raza Dozier > 04/22/20 [id number]
[2020-04-22] MEDS ORDERED: ISOVUE-370 76% 100ML VIAL As Ordered ONE (15:05)
--- NOTE | 2020-04-22 16:03 | REP ---
INDICATION: r/o left PE. COMPARISON: 08/20/2018. TECHNIQUE: CT of the chest with IV contrast, pulmonary artery CT angiography. FINDINGS: There are no emboli in the pulmonary trunk or central pulmonary arteries. There are no emboli in the pulmonary artery lobar segment branches. In There are bilateral pleural effusions, similar to the comparison study. There are multifocal confluent ground gas densities throughout the lung baliey bilaterally, similar to the prior study. There is no mediastinal, hilar or axillary lymph node enlargement. The thoracic aorta is unremarkable. Cardiac size is enlarged. There is reflux of the liver the intravenous contrast into the inferior vena cava and hepatic vein. This may represent compromise cardiac function There are surgical clips in the upper abdomen on the right. IMPRESSION: There are no pulmonary emboli. Cardiomegaly. Reflux of the contrast into the inferior vena cava and hepatic vein suggestive of compromised cardiac function. Bilateral pleural effusions and multifocal confluent bilateral ground-glass densities, possibly pulmonary edema, unchanged from the prior study. <Electronically signed by Emory Justin > 04/22/20 [id number]
--- NOTE | 2020-04-22 16:12 | REP ---
INDICATION: LUQ pain, fever. COMPARISON: 08/20/2018. TECHNIQUE: CT of the abdomen and pelvis with IV contrast. FINDINGS: There are bilateral pleural effusions. There are ground-glass densities in the visualized lower lung bailey. The hepatic parenchyma is homogeneous. There is fatty atrophy of the pancreas. This is unchanged. Spleen is normal size, unchanged. There is a tiny volume of free fluid along the lateral margin of the spleen as an interval change. There is no pneumoperitoneum. The adrenals are unremarkable. The kidneys are unremarkable. There is chronic mild dilatation of the left ureter with no visible calculus. This is unchanged. There is no left hydronephrosis or perinephric stranding. The abdominal aorta is unremarkable. There is no periaortic adenopathy. There is no mesenteric adenopathy or mass. There is no bowel distention or obstruction. Pelvis: There are dilated pelvic veins. This is nonspecific but may represent pelvic congestion in the appropriate clinical setting. There is no pelvic free fluid. No pelvic adenopathy. The pelvic bowel loops are unremarkable. IMPRESSION: There is a small volume of free fluid along the lateral margin of the spleen as an interval change. There is no other free fluid in the pelvis. There are other chronic findings as described, unchanged from the prior study. <Electronically signed by Emory Justin > 04/22/20 [id number]
[2020-04-22] MEDS ORDERED: FUROSEMIDE 100MG/10ML VIAL (J1940) IV ONE (17:00)
[2020-04-22] MEDS ORDERED: FURO40TA2 PO (20:54)
[2020-04-22 21:00] VITALS: BP 127/95
--- NOTE | 2020-04-23 00:59 | ECGEPIP ---
[facility] - ED Test Date: 2020-04-22 Pat Name: SHANE CARNEY Department: Room: - Gender: Female Economic Developer: : 1945 Requested By: Nae Kendrick Order Number: [id number] Reading MD: Chato Villa Measurements Intervals [place] Rate: 96 P: RI: QRS: 60 QRSD: 96 T: -10 QT: 360 QTc: 454 Interpretive Statements Atrial fibrillation with premature ventricular or aberrantly conducted complexes Low voltage QRS POOR R WAVE PROGRESSION Incomplete right bundle branch block SIMILAR TO 03/24/20 Electronically Signed on 04-23-2020 0:59:17 EDT by Chato Villa
== END 2020-04-22 21:29 | disposition home or self-care (01) ==
LOC: M ED 12:34
DX: I11.0 Hypertensive heart disease with heart failure (principal); I50.33 Acute on chronic diastolic (congestive) heart failure; E11.9 Type 2 diabetes mellitus without complications; Z86.16 Personal history of COVID-19; Z88.0 Allergy status to penicillin; Z91.013 Allergy to seafood; Z79.51 Long term (current) use of inhaled steroids; Z79.01 Long term (current) use of anticoagulants; Z79.899 Other long term (current) drug therapy
CPT/HCPCS: 36415; 71045; 71275; 74177; 80048; 80076; 83605; 83690; 84484; 85025; 85610; 87040; 87798; 93005; 93041; 94760; 96374; 99285; J1940; Q9967

== ENCOUNTER 2020-06-28 17:54 | Emergency (ER) | payer MEDICARE ==
[~2020-06-28 17:54] MED LIST changes: -ACET-908 PO; +ACET-910 PO
--- NOTE | 2020-06-28 19:03 | REPVR ---
PROCEDURE INFORMATION: Exam: CT Head Without Contrast Exam date and time: 06/28/2020 6:12 PM Age: 75 years old Clinical indication: Injury or trauma; Fall; Blunt trauma (contusions or hematomas); Consciousness not specified; Additional info: Fall on thinners TECHNIQUE: Imaging protocol: Computed tomography of the head without contrast. Total images: 132 Radiation optimization: All CT scans at this facility use at least one of these dose optimization techniques: automated exposure control; mA and/or kV adjustment per patient size (includes targeted exams where dose is matched to clinical indication); or iterative reconstruction. COMPARISON: CT Head without contrast 01/20/2018 8:02 PM FINDINGS: Limitations: No sagittal reformatted images. Brain: No acute findings. No mass. No signs of acute infarct. No focal cerebral lesions. Cerebral ventricles: Mild/moderate global cortical atrophy with proportionate dilatation of the ventricles is within normal limits for 75 years of age. Pituitary gland and sella: The pituitary gland and sella are unremarkable. Bones/joints: Hyperostosis frontalis interna. No skull fracture. Paranasal sinuses: Visualized sinuses are unremarkable. No fluid levels. Mastoid air cells: Visualized mastoid air cells are well aerated. Orbital cavity: Normal. Soft tissues: Subcutaneous hematoma at the left posterosuperior scalp. IMPRESSION: 1. No acute intracranial abnormality. No hemorrhage. 2. Mild/moderate age-appropriate global brain atrophy. 3. Subcutaneous hematoma at the left posterosuperior scalp. 4. No skull fracture. Electronically signed by: Daniel Carrillo On 06/28/2020 19:03:18 PM
--- NOTE | 2020-06-28 19:16 | REPVR ---
PROCEDURE INFORMATION: Exam: CT Cervical Spine Without Contrast Exam date and time: 06/28/2020 6:12 PM Age: 75 years old Clinical indication: Injury or trauma; Fall; Blunt trauma; Additional info: Fall on thinners TECHNIQUE: Imaging protocol: Computed tomography images of the cervical spine without contrast. Total images: 314 Radiation optimization: All CT scans at this facility use at least one of these dose optimization techniques: automated exposure control; mA and/or kV adjustment per patient size (includes targeted exams where dose is matched to clinical indication); or iterative reconstruction. COMPARISON: CT Spine,cervical w/o contrast 01/20/2018. FINDINGS: Limitations: No soft tissue reformatted sagittal or coronal images. Bones/joints: 16 degrees cervical levoscoliosis between C1 and T1 is unchanged from the last CT on 01/20/18. No acute fracture or dislocation. Spontaneous solid fusion of the hypertrophied right C2-C3 facet joint is unchanged from the prior CT. The dens is intact. The atlantoaxial joints are normal. Discs/Spinal canal/Neural foramina: Moderate right C3-C4 facet arthropathy and mild right C4-C5 facet arthropathy are slightly worse compared to the prior CT. At the C6-C7 and C7-T1, there is mild/moderate disc narrowing and bilateral uncovertebral arthropathy. At both levels, there are mild posterior disc/osteophyte complexes, but no spinal stenosis. There is stable moderate right C5-C6 foraminal stenosis. 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 Lungs: Lung apices are normal. Vasculature: Calcification of the carotid bifurcations. Soft tissues: Unremarkable. IMPRESSION: 1. No acute fracture or dislocation. 2. Compared to the last CT in 2017, degenerative changes are slightly worse. 3. Stable 16 degree cervical levoscoliosis. 4. Stable fusion of the right C2-C3 facet joint. 5. Calcified plaque at both carotid bifurcations. Nonemergent carotid duplex ultrasound is recommended. Electronically signed by: Daniel Carrillo On 06/28/2020 19:15:47 PM
[2020-06-28] MEDS ORDERED: ACETAMINOPHEN TAB 650MG DOSE (2X325MG) PO ONE (19:30)
[2020-06-28 19:39] VITALS: BP 142/72
== END 2020-06-28 19:49 | disposition home or self-care (01) ==
LOC: M ED 17:54
DX: S00.03XA Contusion of scalp, initial encounter (principal); W01.0XXA Fall on same level from slipping, tripping and stumbling without subsequent striking against object, initial encounter; Y92.019 Unspecified place in single-family (private) house as the place of occurrence of the external cause; Y93.9 Activity, unspecified; Y99.9 Unspecified external cause status; I65.23 Occlusion and stenosis of bilateral carotid arteries; G31.89 Other specified degenerative diseases of nervous system; M43.22 Fusion of spine, cervical region; M41.9 Scoliosis, unspecified; E11.9 Type 2 diabetes mellitus without complications; I48.91 Unspecified atrial fibrillation; I10 Essential (primary) hypertension; Z86.16 Personal history of COVID-19; Z88.0 Allergy status to penicillin; Z91.013 Allergy to seafood; Z79.01 Long term (current) use of anticoagulants; Z79.899 Other long term (current) drug therapy

== ENCOUNTER → 2020-11-16 | Outpatient (CLI) | payer MEDICARE ==
--- NOTE | 2020-11-16 15:22 | REP ---
INDICATION: SHORTNESS OF BREATH COMPARISON: 04/22/2020 TECHNIQUE: PA and lateral. FINDINGS: Stable cardiomegaly. The lung bailey are clear and without acute consolidation, effusion, or pneumothorax. The skeletal structures are intact and normal. IMPRESSION: Stable cardiomegaly. No acute consolidation or effusion. <Electronically signed by Mikey Ruffin > 11/16/20 [id number]
== END ==
LOC: M RAD 15:05
PROVIDERS: ATTEND Internal Medicine Pulmonary Disease
DX: R06.02 Shortness of breath (principal)

== ENCOUNTER → 2020-12-15 | Outpatient (CLI) | payer MEDICARE ==
[~2020-12-15] MED LIST changes: +METHACHOLINE KIT (J7674) INH ONE
--- NOTE | 2020-12-15 11:45 | PFTRPT ---
Site: [facility], [address] [place], [address] ID: [id number] Name: SHANE CARNEY Visit Date: 12/15/2020 Second ID: [id number] Referring Doctor: Tommy Carranza MD Reviewing Doctor: Tommy Carranza MD Oil Rigger: Ronan BISHOP, ERIC Age: 75 : 1945 Sex: Female Race: Height: 65.00 Inches Weight: 210.00 Lbs BSA: 2.02 Order IDs: [id number] Requested Test(s): <RESP-PFT.METH CHAL> Diagnosis: R06.02 of albuterol for post bronchodilator AND a xopenex nebulizer. Review Status: Not Reviewed Pre-Bronch Post-Bronch Pred Actual %Pred Actual %Chng SPIROMETRY FVC (L) 2.99 1.76 58 1.67 -4 FEV1 (L) 2.25 1.36 60 1.29 -4 FEV1/FVC (%) 75 77 103 77 FEF 25% (L/sec) 4.76 3.31 69 2.77 -16 FEF 50% (L/sec) 3.23 1.75 54 1.85 5 FEF 75% (L/sec) 0.90 0.43 47 0.22 -47 FEF 25-75% (L/sec) 1.78 1.24 69 0.88 -28 FEF Max (L/sec) 5.51 3.34 60 2.82 -15 FIVC (L) 1.46 1.62 11 FIF 50% (L/sec) 3.47 1.68 48 2.48 48 FIF Max (L/sec) 1.90 2.50 32 Expiratory Time (sec) 6.63 6.65 Back Extrap Vol (L) 0.08 0.09 9 Time To FEFmax (sec) 0.117 0.119 1
== END ==
LOC: M CARPUL 10:30
PROVIDERS: ATTEND Internal Medicine Pulmonary Disease
DX: R06.02 Shortness of breath (principal)
CPT/HCPCS: 94070; 95070; J7674

== ENCOUNTER 2021-07-12 14:36 | Emergency (ER) | payer MEDICARE ==
[~2021-07-12] VITALS: Ht 175.3 cm; Wt 100.0 kg
[~2021-07-12 14:36] MED LIST changes: -D31000TA2 PO; +LOSA25TA13 PO; -LOSA25TA14 PO; -METHACHOLINE KIT (J7674) INH ONE; +VITA100093 PO
[2021-07-12] MEDS ORDERED: methylPREDNISolone 125MG 2ML VIAL IV ONE (19:45)
[2021-07-12] MEDS ORDERED: NS 500 ML IV ONE (19:45)
[2021-07-12] MEDS ORDERED: ACETAMINOPHEN TAB 650MG DOSE (2X325MG) PO ONE (20:00)
[2021-07-12 20:21] LABS: BASO % 0.3 % (0.0-1.0); EOS # 0.1 10^3/uL (0.0-0.5); EOS % 0.9 % (0.0-3.0); HEMATOCRIT 44.2 % (36.0-47.0); HEMOGLOBIN 14.5 g/dl (12.0-15.5); LYMPH # 1.6 10^3/uL (1.5-5.0); LYMPH % 12.6 % (24.0-44.0); MEAN CORPUSCULAR HEMOGLOBIN 30.1 pg (27.0-33.0); MEAN CORPUSCULAR HGB CONC 32.8 g/dl (32.0-36.5); MEAN CORPUSCULAR VOLUME 91.7 fl (80.0-96.0); MONO # 0.8 10^3/uL (0.0-0.8); MONO % 6.5 % (2.0-8.0); NEUTROPHILS # 9.7 10^3/uL (1.5-8.5); NEUTROPHILS % 79.1 % (36.0-66.0); PLATELET COUNT, AUTOMATED 201 10^3/uL (150-450); RED BLOOD COUNT 4.82 10^6/uL (4.00-5.40); WHITE BLOOD COUNT 12.3 10^3/uL (4.0-10.0)
[2021-07-12] MEDS: COMBIVENT RESPIMAT 100-20MCG INHALER 4GM INH SCH ×3 (20:25→20:40)
[2021-07-12 20:37] LABS: INR 1.66
[2021-07-12 20:50] LABS: BLOOD UREA NITROGEN 14 MG/DL (7-18); CALCIUM LEVEL 10.2 MG/DL (8.8-10.2); CARBON DIOXIDE LEVEL 31 MEQ/L (21-32); CHLORIDE LEVEL 104 MEQ/L (98-107); GLOMERULAR FILTRATION RATE > 60.0 (>39); GLUCOSE, FASTING 124 MG/DL (70-100); POTASSIUM SERUM 3.9 MEQ/L (3.5-5.1); SODIUM LEVEL 141 MEQ/L (136-145)
[2021-07-12 22:10] VITALS: BP 182/81
[2021-07-12] MEDS ORDERED: LOSARTAN 25 MG TAB PO ONE (22:10)
[2021-07-12] MEDS ORDERED: WARFARIN SOD 5MG TAB PO ONE (22:10)
[2021-07-12] MEDS ORDERED: METOPROLOL TARTRATE 100MG TAB PO ONE (22:10)
[2021-07-12] MEDS ORDERED: WARFARIN SOD 3MG TAB PO ONE (22:15)
[2021-07-12 22:31] VITALS: BP 146/83
[2021-07-12] MEDS ORDERED: MUCI600T31 PO (23:01)
[2021-07-12] MEDS ORDERED: PRED20TA PO (23:01)
== END 2021-07-12 23:11 | disposition home or self-care (01) ==
LOC: M ED 14:36
DX: J20.8 Acute bronchitis due to other specified organisms (principal); B34.8 Other viral infections of unspecified site; I48.91 Unspecified atrial fibrillation; I50.9 Heart failure, unspecified; R91.8 Other nonspecific abnormal finding of lung field; Z88.0 Allergy status to penicillin; Z91.013 Allergy to seafood
CPT/HCPCS: 71045; 80048; 83605; 85025; 85610; 87040; 87486; 87581; 87633; 87798; 93005; 94640; 96361; 96374; 99284; J2930

== ENCOUNTER 2024-06-13 07:17 | Day surgery (SDC) | payer MEDICARE ==
[~2024-06-13] VITALS: Ht 177.8 cm; Wt 108.0 kg
[~2024-06-13 07:17] MED LIST changes: +DILT1TAB12 PO; +FLUT1BLS5 INH; -K-TA10TA2 PO; +LEVO1TAB40 PO; -LEVO750T13 PO; +MIDAZOLAM INJ 2MG/2ML VIAL As Ordered ONE; +MUCI600T31 PO; +PHENYLEPHRINE 10% OPHTH SOL 5ML OD PRN; +POTA-165 PO; +POTA1TAB23 PO; +PRED20TA PO; -PRED50TA PO; +PRED50TA57 PO; +VITATAB73 PO; +fentaNYL 100 MCG/2 ML INJECTION As Ordered ONE
[2024-06-13] MEDS: OFLOXACIN 0.3 % (OCUFLOX) OPTH SOL 5ML OD ONE (07:41)
[2024-06-13] MEDS: TROPICAMIDE 1% OPHTH SOLN 15ML OD SCH (07:42)
[2024-06-13] MEDS: CYCLOPENTOLATE 1% OPHTH SOLN 2ML BTL OD SCH (07:42)
[2024-06-13] MEDS: PHENYLEPHRINE 2.5% OPHTH SOL 2ML OD SCH (07:42)
[2024-06-13] MEDS: LIDOCAINE 3.5 % 1ML OPHTH TOPICAL GEL OU ONE (07:42)
[2024-06-13 08:12] LABS: INR 2.38
[2024-06-13] MEDS: LIDOCAINE 1% SDV 5ML VIAL As Ordered ONE (08:26)
[2024-06-13] MEDS: CEFUROXIME 1MG/0.1ML INTRACAMERAL INJ As Ordered ONE (08:26)
[2024-06-13] MEDS: BSS IRRIG/VANCO(10MG)/TOBRA(5MG)/EPINEPH(1:1000-0.5CC)500ML BAG-ORONLY As Ordered ONE (08:26)
[2024-06-13 08:55] VITALS: BP 140/83; TEMP 96.4; O2SAT 98
== END 2024-06-13 09:03 | disposition home or self-care (01) ==
LOC: M SDC 07:17
PROVIDERS: ATTEND Ophthalmology
DX: E11.36 Type 2 diabetes mellitus with diabetic cataract (principal); H25.11 Age-related nuclear cataract, right eye; I10 Essential (primary) hypertension; I48.91 Unspecified atrial fibrillation; E89.0 Postprocedural hypothyroidism; E78.00 Pure hypercholesterolemia, unspecified; J45.909 Unspecified asthma, uncomplicated; G47.30 Sleep apnea, unspecified; Z92.3 Personal history of irradiation; Z79.890 Hormone replacement therapy; Z79.899 Other long term (current) drug therapy; Z79.01 Long term (current) use of anticoagulants; Z88.0 Allergy status to penicillin; Z91.013 Allergy to seafood
CPT/HCPCS: 36415; 66984; 85610; 92015; J2250; J3010; V2632